=== PATIENT | male | born 1965 | race Caucasian/White ===

== ENCOUNTER 2017-07-08 19:33 | Inpatient (IN) ==
--- NOTE | 2017-07-08 20:25 | Emergency Department Note ---
Disposition Clinical Impression: Cholecystitis, Elevated LFTs, Elevated bilirubin, History of alcohol abuse Ascites Qualifiers: Ascites type: other type Qualified Code(s): R18.8 - Other ascites Disposition: Admitted As Inpatient Time of Disposition: 23:08 General Adult HPI - General Chief complaint: ED General Medical Stated complaint: sent me because of lab work Time Seen by Provider: 07/08/17 20:19 Source: patient Mode of arrival: ambulatory Limitations: no limitations Nursing Notes Reviewed: Yes Vital Signs Reviewed: Yes - History of Present Illness HPI Narrative: Patient is a 52-year-old male with past medical history of anxiety and depression. He also has chronic daily alcohol use. Denies any other IV drug use, any history of hepatitis. He presents today due to abnormal labs, jaundice , scleral icterus, mild to moderate generalized abdominal pain. Patient states that he was seen today at [facility] and had labs drawn and was told that his potassium was 2.6. He was referred to the ER for further care. He was also told that his LFTs were elevated. No labs are available here. The patient states that these were sent to [facility]. Denies any right upper quadrant pain but does admit to some generalized abdominal distention and mild generalized abdominal pain. Denies any diarrhea, nausea, vomiting, fevers, chest pain, shortness of breath. He does admit to some confusion and generalized fatigue, denies any specific numbness, tingling, weakness. The patient does report that he was told 2 to 3 days ago that his potassium was low and that he was supposed to follow up with his primary care physician but has not done so yet. He does not take any potassium supplements daily. Pain Scale: 0 - Related Data Home Medications Medication Instructions Recorded Confirmed clonazePAM [Klonopin] 2 mg PO TID 02/27/16 02/27/16 Previous Rx's Medication Instructions Recorded clonazePAM [Klonopin] 2 mg PO TID #21 tablet 02/27/16 Allergies Allergy/AdvReac Type Severity Reaction Status Date / Time No Known Allergies Allergy Verified 07/08/17 20:08 All systems ED: reviewed and negative except as stated. Constitutional: Denies: fever Eyes: Reports: other (Scleral icterus) Cardiovascular: Denies: chest pain, palpitations Respiratory: Denies: cough, dyspnea, wheezes Gastrointestinal: Reports: abdominal pain. Denies: nausea, vomiting, diarrhea, constipation, hematemesis, melena, hematochezia Genitourinary: Denies: urgency, dysuria, frequency, hematuria Integumentary: Reports: other (Jaundice). Denies: rash Neurological: Denies: headache, weakness, numbness, paresthesias Psychiatric: Reports: anxiety, depression Endocrine: Reports: fatigue Past Medical History - Past Medical History Attestation: Yes The following information was validated with the patient. Source: patient Medical history: Reports: no medical history Psychiatric history: Reports: anxiety, depression - Social History Smoking Status: Current every day smoker Smokeless Tobacco Status: No Alcohol use: Reports: heavy, recent Drug use: Reports: none Physical Exam - General Limitations: no limitations General appearance: other (fatigued, generalized weakness, juandice, scleral icterus) - Head Head exam: atraumatic, normocephalic, normal inspection - Eye Eye exam: Present: PERRL, EOMI, scleral icterus - ENT ENT exam: normal exam, normal oropharynx, mucous membranes moist - Neck Neck exam: Present: normal inspection, full ROM, trachea midline - Chest Chest inspection: Present: normal inspection, symmetric chest wall rise - Respiratory Respiratory exam: Present: normal lung sounds bilaterally - Cardiovascular Cardiovascular exam: Present: normal rhythm, tachycardia, normal heart sounds - Abdominal Exam Abdominal exam: Present: soft, tenderness (mild generalized), distention. Absent: guarding, rebound, rigidity - Extremities Exam Extremities exam: Present: normal inspection, full ROM. Absent: tenderness, pedal edema - Neurological Exam Neurological exam: Present: alert, oriented X3 - Psychiatric Psychiatric exam: Present: normal affect, normal mood - Skin Skin exam: Present: warm, dry, intact, other (Jaundiced from head to shoulders) Course Course Narrative: Patient is tachycardic. EKG shows sinus tachycardia with no acute changes from previous EKG on 07/07/2017. On exam, patient has generalized fatigue, tremors. He is mildly confused. Alert and oriented [address] but not time. He has scleral icterus, jaundice from head down midthoracic region. Mild generalized abdominal distention, mild generalized abdominal tenderness. We will obtain basic labs including LFTs, potassium and basic electrolytes. We will also obtain CT abdomen and pelvis without contrast. Miguel Ángel and gave the patient 40 mEq of oral potassium 21:22 CT shows distended gallbladder, ultrasound was recommended. Ultrasound has been ordered of the right upper quadrant/gallbladder. Is also a large amount of intra-abdominal and pelvic ascites. LFTs, total bili, direct bili was elevated. AST elevated, a LT within normal limits. Concern for alcohol cirrhosis. We will add on ammonia level. Potassium was 3.3 here. He has been given 40meq oral K. NS bolus along with banana bag given. 22:45 PT/INR pending. Gallbladder ultrasound shows cholelithiasis and cholecystitis and possible distal common bile duct obstruction. Patient has seen Dr. Byrd in the past for surgical procedure and aggressive that he stay with [facility] surgical [facility]. I spoke with Dr. Quezada, clothing consultant for surgery, and discussed clinical presentation, lab results, vital signs. He recommended that the patient be admitted to medical services, recommends GI consult once admitted. He then recommended that after workup was complete by GI that surgery can be consulted, therefore no official consult placed yet for surgery. Will admit to hospitalist for further care. 23:07 Dr. Montaño accepts, requested consult to GI to be placed. No GI clothing consultant, consult placed for GI service tomorrow morning. Abdomen/Pelvis CT 07/08/17 20:36 IMPRESSION: 1. Significantly distended gallbladder with gallbladder sludge. No visible dense gallstones or evidence of gallbladder wall thickening. Common bile duct not visualized. Ultrasound evaluation recommended. 2. Large amount of intra-abdominal and pelvic ascites, of uncertain etiology. 3. Severe hepatic steatosis. Assessment of the liver is limited without IV contrast. 4. Diffuse pancreatic atrophy, also limited due to lack of IV contrast. 5. Diffuse body wall edema. D/ / 07/08/2017 21:12:14 Alejandra Vasques / bhupendra Interpreting Provider: Alejandra Vasques Gallbladder Ultrasound 07/08/17 21:21 IMPRESSION: Cholelithiasis, cholecystitis, and possible distal common bile duct obstruction. Moderate ascites. RECOMMENDATIONS: Follow-up HIDA scan D/ / Sergo Arreaga MD / Sergo Arreaga MD Interpreting Provider: Sergo Arreaga MD Abdomen/Pelvis CT 07/08/17 20:36 IMPRESSION: 1. Significantly distended gallbladder with gallbladder sludge. No visible dense gallstones or evidence of gallbladder wall thickening. Common bile duct not visualized. Ultrasound evaluation recommended. 2. Large amount of intra-abdominal and pelvic ascites, of uncertain etiology. 3. Severe hepatic steatosis. Assessment of the liver is limited without IV contrast. 4. Diffuse pancreatic atrophy, also limited due to lack of IV contrast. 5. Diffuse body wall edema. D/ / 07/08/2017 21:12:14 Alejandra Vasques / bhupendra Interpreting Provider: Alejandra Vasques Vital Signs Temperature 98.5 F 07/08/17 20:08 Pulse Rate 120 07/08/17 20:08 Respiratory Rate 16 07/08/17 20:08 Blood Pressure 118/75 07/08/17 20:08 O2 Sat by Pulse Oximetry 95 07/08/17 20:08 Temperature 97.7 F 07/08/17 23:51 Pulse Rate 107 07/08/17 23:51 Respiratory Rate 16 07/08/17 23:51 Blood Pressure 122/77 07/08/17 23:51 O2 Sat by Pulse Oximetry 92 07/08/17 23:51 Oxygen Delivery Oxygen Delivery Nasal Cannula Medical Decision Making - MDM Narrative Medical decision making narrative: CT shows distended gallbladder, ultrasound was recommended. Ultrasound has been ordered of the right upper quadrant/gallbladder. Is also a large amount of intra-abdominal and pelvic ascites. LFTs, total bili, direct bili was elevated. AST elevated, a LT within normal limits. Concern for alcohol cirrhosis. We will add on ammonia level. Potassium was 3.3 here. He has been given 40meq oral K. NS bolus along with banana bag given. 22:45 PT/INR pending. Gallbladder ultrasound shows cholelithiasis and cholecystitis and possible distal common bile duct obstruction. Patient has seen Dr. Byrd in the past for surgical procedure and aggressive that he stay with [facility] surgical group. I spoke with Dr. Quezada, clothing consultant for surgery, and discussed clinical presentation, lab results, vital signs. He recommended that the patient be admitted to medical services, recommends GI consult once admitted. He then recommended that after workup was complete by GI that surgery can be consulted, therefore no official consult placed yet for surgery. Will admit to hospitalist for further care. 23:07 Dr. Montaño accepts, requested consult to GI to be placed. No GI clothing consultant, consult placed for GI service tomorrow morning. - Medical Records Medical records reviewed: Yes I reviewed the patient's medical records. - Lab Data Lab results reviewed: Yes I reviewed the patient's lab results. Result diagrams: 07/08/17 20:38 07/08/17 20:38 Lab Results 07/08/17 07/08/17 07/08/17 Range/Units 20:30 20:38 20:38 WBC 16.4 H (4.3-11.1) K/mcL RBC 2.74 L (4.19-5.50) M/mcL Hgb 10.2 L (12.9-16.9) g/dL Hct 30.3 L (37.5-50.1) % MCV 110.6 H (83.0-100.0) fL MCH 37.2 H (28.0-33.3) pg MCHC 33.7 (31.6-35.5) g/dL RDW 17.0 H (11.5-14.5) % Plt Count 140 (140-400) K/mcL MPV 12.0 (9.4-12.4) fL Seg Neutrophils % 84.0 % Lymphocytes % 10.0 % Monocytes % 6.0 % Neutrophils # 13.8 H (1.6-8.9) K/mcL Lymphocytes # 1.6 (0.6-4.6) K/mcL Monocytes # 1.0 (0.0-1.3) K/mcL Platelet Estimate Normal (Normal) Macrocytosis Present A (Not Present) PT 25.1 H (9.4-12.1) Seconds INR 2.3 APTT 41.0 H (26.0-36.0) Seconds Sodium 130 L (136-145) mEq/L Potassium 3.3 L (3.5-5.1) mEq/L Chloride 90 L (98-107) mEq/L Carbon Dioxide 33 H (23-29) mEq/L BUN 7 (6-20) mg/dL Creatinine 0.67 L (0.70-1.30) mg/dL Est GFR ( Amer) > 60 (> 60) Est GFR (Non-Af Amer) > 60 (> 60) BUN/Creatinine Ratio 10 (6-26) Glucose 120 H (70-105) mg/dL Calculated Osmolality 269 L (280-300) Lactic Acid (0.5-2.2) mmol/L Calcium 8.2 L (8.6-10.3) mg/dL Total Bilirubin 8.6 H (0.3-1.0) mg/dL Direct Bilirubin 4.8 H (0.0-0.2) mg/dL Indirect Bilirubin 3.8 H (0.0-1.2) mg/dL AST 137 H (13-39) Units/L ALT 33 (7-52) Units/L Alkaline Phosphatase 150 H (34-104) Units/L Ammonia (16-53) mcmol/L Troponin I < 0.03 (< 0.04) ng/mL Serum Total Protein 8.3 (6.4-8.9) g/dL Albumin 1.9 L (3.5-5.7) g/dL Globulin 6.4 H (2.4-3.5) g/dL Albumin/Globulin Ratio 0.3 L (1.1-2.2) Lipase 10 L (11-82) Units/L 07/08/17 07/08/17 Range/Units 20:38 21:37 WBC (4.3-11.1) K/mcL RBC (4.19-5.50) M/mcL Hgb (12.9-16.9) g/dL Hct (37.5-50.1) % MCV (83.0-100.0) fL MCH (28.0-33.3) pg MCHC (31.6-35.5) g/dL RDW (11.5-14.5) % Plt Count (140-400) K/mcL MPV (9.4-12.4) fL Seg Neutrophils % % Lymphocytes % % Monocytes % % Neutrophils # (1.6-8.9) K/mcL Lymphocytes # (0.6-4.6) K/mcL Monocytes # (0.0-1.3) K/mcL Platelet Estimate (Normal) Macrocytosis (Not Present) PT (9.4-12.1) Seconds INR APTT (26.0-36.0) Seconds Sodium (136-145) mEq/L Potassium (3.5-5.1) mEq/L Chloride (98-107) mEq/L Carbon Dioxide (23-29) mEq/L BUN (6-20) mg/dL Creatinine (0.70-1.30) mg/dL Est GFR ( Amer) (> 60) Est GFR (Non-Af Amer) (> 60) BUN/Creatinine Ratio (6-26) Glucose (70-105) mg/dL Calculated Osmolality (280-300) Lactic Acid 2.9 H (0.5-2.2) mmol/L Calcium (8.6-10.3) mg/dL Total Bilirubin (0.3-1.0) mg/dL Direct Bilirubin (0.0-0.2) mg/dL Indirect Bilirubin (0.0-1.2) mg/dL AST (13-39) Units/L ALT (7-52) Units/L Alkaline Phosphatase (34-104) Units/L Ammonia 91 H (16-53) mcmol/L Troponin I (< 0.04) ng/mL Serum Total Protein (6.4-8.9) g/dL Albumin (3.5-5.7) g/dL Globulin (2.4-3.5) g/dL Albumin/Globulin Ratio (1.1-2.2) Lipase (11-82) Units/L - Radiology Data Radiology results reviewed: Yes I reviewed the patient's radiology results. Abdomen/Pelvis CT 07/08/17 20:36 IMPRESSION: 1. Significantly distended gallbladder with gallbladder sludge. No visible dense gallstones or evidence of gallbladder wall thickening. Common bile duct not visualized. Ultrasound evaluation recommended. 2. Large amount of intra-abdominal and pelvic ascites, of uncertain etiology. 3. Severe hepatic steatosis. Assessment of the liver is limited without IV contrast. 4. Diffuse pancreatic atrophy, also limited due to lack of IV contrast. 5. Diffuse body wall edema. D/ / 07/08/2017 21:12:14 Alejandra Vasques / bhupendra Interpreting Provider: Alejandra Vasques Gallbladder Ultrasound 07/08/17 21:21 IMPRESSION: Cholelithiasis, cholecystitis, and possible distal common bile duct obstruction. Moderate ascites. RECOMMENDATIONS: Follow-up HIDA scan D/ / Sergo Arreaga MD / Sergo Arreaga MD Interpreting Provider: Sergo Arreaga MD - EKG Data EKG #1 EKG attestation: Yes I reviewed and interpreted this EKG. EKG results narrative: 07/08/2017 20:20. Sinus tachycardia. Rate 119. QRS 101. QTC [address] elevation or depression compared to 07/07/2017. Mild left axis deviation. S.B.A.R. - S.B.A.R. Situation: Demographics, MOA Background: Presenting Complaint, Relevant PMH, Meds, & Allergies Assessment: Vital Signs, Course and respsone to treatment, Exam Concerns, Patient/Family Expectation, Pertinant Lab Results, Outstanding Labs Recommendation: Barrier(s) to disposition, Recommendation based on pending studies, treatments, or consults S.B.A.RAngela Report Given to: Dr. Montaño SAngelaBCristian Repor Time: 23:08 Attestation Statement - Attestation Attestation: I, Dallas William MD, personally evaluated this patient and discussed their management with the resident physician. I reviewed the resident's note and agree with the documented findings, medical decision making, and plan of care. 52-year-old male presents to the emergency department with a complaint of generalized illness which started about a week prior to arrival. He complains of generalized weakness and some generalized abdominal pain and discomfort. Pain especially in the epigastric region. Nausea but no vomiting. He complains of decreased appetite and oral intake. Patient admits to heavy alcohol use. He states he does not drink daily but drinks a lot. He denies prior history of liver problems or gallbladder problems. He was seen somewhere else today and had lab work and referred here because of markedly elevated liver enzymes. On examination patient is a well-developed well-nourished male in no acute distress. He is alert and oriented 3. There is no cyanosis or diaphoresis. He does have jaundice and scleral icterus. He appears dehydrated with dry mucous membranes and lips. Breath sounds are clear and equal bilaterally. Heart tachycardic and regular. Abdomen is soft and mildly distended. Normal bowel sounds. Mild epigastric and upper abdominal tenderness. Labs reviewed. CT of the abdomen and pelvis showed a distended gallbladder and recommended gallbladder ultrasound. It also showed abdominal and pelvic ascites and hepatic steatosis. Gallbladder ultrasound was obtained and showed: Cholelithiasis, cholecystitis, and possible distal common bile duct obstruction. Moderate ascites. Dr. Francis discussed the case with the surgeon clothing consultant, Dr. Quezada, and he recommended admission by the hospitalist. The hospitalist, Dr. Montaño, was consulted and accepted admission of the patient.
[2017-07-08] MEDS ORDERED: Potassium Chloride Elixir 20 MEQ/15 ML UDC PO ONE (20:35)
[2017-07-08 20:51] LABS: Hematocrit 30.3 % (37.5-50.1); Hemoglobin 10.2 g/dL (12.9-16.9); Mean Corpuscular HGB Conc 33.7 g/dL (31.6-35.5); Mean Corpuscular Hemoglobin 37.2 pg (28.0-33.3); Mean Corpuscular Volume 110.6 fL (83.0-100.0); Platelet Count 140 K/mcL (140-400); Red Blood Count 2.74 M/mcL (4.19-5.50)
[2017-07-08 21:08] LABS: Troponin I < 0.03 ng/mL (< 0.04)
[2017-07-08 21:09] LABS: Alanine Aminotransferase 33 Units/L (7-52); Albumin 1.9 g/dL (3.5-5.7); Albumin/Globulin Ratio 0.3 (1.1-2.2); Alkaline Phosphatase 150 Units/L (34-104); Aspartate Amino Transferase 137 Units/L (13-39); BUN/Creatinine Ratio 10 (6-26); Bilirubin,Direct 4.8 mg/dL (0.0-0.2); Bilirubin,Indirect 3.8 mg/dL (0.0-1.2); Bilirubin,Total 8.6 mg/dL (0.3-1.0); Blood Urea Nitrogen 7 mg/dL (6-20); Calcium 8.2 mg/dL (8.6-10.3); Carbon Dioxide 33 mEq/L (23-29); Chloride 90 mEq/L (98-107); Globulin 6.4 g/dL (2.4-3.5); Glucose 120 mg/dL (70-105); Lipase 10 Units/L (11-82); Osmolality,Calculated 269 (280-300); Potassium 3.3 mEq/L (3.5-5.1); Sodium 130 mEq/L (136-145); Total Protein 8.3 g/dL (6.4-8.9); eGFR For African Americans > 60 (> 60); eGFR For Non-African Americans > 60 (> 60)
[2017-07-08 21:58] LABS: Lymphocytes # 1.6 K/mcL (0.6-4.6); Neutrophils # 13.8 K/mcL (1.6-8.9)
[2017-07-08 21:59] LABS: Platelet Estimate Normal (Normal)
[2017-07-08 22:00] LABS: Macrocytosis Present (Not Present)
[2017-07-08] MEDS ORDERED: 0.9 % Sodium Chloride 1,000 ML IVC ONE (22:32)
[2017-07-08 23:08] LABS: INR 2.3; Prothrombin Time 25.1 Seconds (9.4-12.1)
[2017-07-09] MEDS: Thiamine (B-1) 100 MG, Folic Acid 1 MG, MVI, adult with vitamin K 10 ML in 0.9 % Sodi... IVPB SCH ×2 (01:10→18:02)
[2017-07-09] MEDS ORDERED: *HR* OxyCODONE Immed Rel 5 MG TABLET PO PRN (03:00)
[2017-07-09] MEDS ORDERED: D5% in 0.45% NACL 1,000 ML IVC SCH (03:00)
[2017-07-09] MEDS ORDERED: traMADol 50 MG TABLET PO PRN (03:00)
[2017-07-09] MEDS ORDERED: Naloxone 0.4 MG/ML INJ IVP PRN ×2 (03:00→08:22)
[2017-07-09] MEDS ORDERED: Acetaminophen 325 MG TABLET PO PRN (03:00)
[2017-07-09 05:20] LABS: Alanine Aminotransferase 24 Units/L (7-52); Albumin < 1.5 g/dL (3.5-5.7); Alkaline Phosphatase 108 Units/L (34-104); Aspartate Amino Transferase 102 Units/L (13-39); BUN/Creatinine Ratio 14 (6-26); Bilirubin,Total 7.1 mg/dL (0.3-1.0); Blood Urea Nitrogen 7 mg/dL (6-20); Calcium 7.4 mg/dL (8.6-10.3); Carbon Dioxide 33 mEq/L (23-29); Chloride 95 mEq/L (98-107); Chol/HDL Ratio 13.3 (0-4.9); Cholesterol 40 mg/dL (< 200); Glucose 102 mg/dL (70-105); HDL Cholesterol 3 mg/dL (40-59); LDL Cholesterol,Calculated 24 mg/dL (0-99); Magnesium 1.6 mg/dL (1.6-2.6); Osmolality,Calculated 272 (280-300); Sodium 132 mEq/L (136-145); Total Protein 6.3 g/dL (6.4-8.9); Triglycerides 64 mg/dL (< 150); eGFR For African Americans > 60 (> 60); eGFR For Non-African Americans > 60 (> 60)
[2017-07-09 05:26] LABS: Hemoglobin 7.4 g/dL (12.9-16.9)
[2017-07-09 05:28] LABS: Immature Platelets 14.3 % (1.1-6.1); Mean Corpuscular HGB Conc 33.6 g/dL (31.6-35.5); Mean Corpuscular Hemoglobin 37.4 pg (28.0-33.3); Mean Corpuscular Volume 111.1 fL (83.0-100.0); Mean Platelet Volume 11.5 fL (9.4-12.4); Red Blood Count 1.98 M/mcL (4.19-5.50)
[2017-07-09] MEDS ORDERED: *HR* Enoxaparin 40 MG/0.4 ML SYRINGE SQ SCH (06:00)
[2017-07-09] MEDS ORDERED: Potassium Chloride 40 MEQ, Lidocaine 1% 2 ML in D5% in Water 500 ML IVPB ONE (06:26)
[2017-07-09] MEDS ORDERED: Ipratropium/Albuterol Neb 3 ML IH PRN (08:20)
[2017-07-09] MEDS ORDERED: OXYCODONE Oral CONC 10 MG/0.5 ML ORAL.SYG SL PRN (08:22)
[2017-07-09] MEDS ORDERED: diazePAM 10 MG/2 ML SYRINGE IVP PRN ×3 (08:22)
--- NOTE | 2017-07-09 08:33 | Internal Med History&Physical ---
Date of Encounter: 07/09/17 Time of Encounter: 08:29 Assessment and Plan (1) Common bile duct (CBD) obstruction Current visit: Yes Status: Acute Ultrasound showed: 1. Significantly distended gallbladder with gallbladder sludge. No visible dense gallstones or evidence of gallbladder wall thickening. Common bile duct not visualized. Ultrasound evaluation recommended. 2. Large amount of intra-abdominal and pelvic ascites, of uncertain etiology. 3. Severe hepatic steatosis. Assessment of the liver is limited without IV contrast. 4. Diffuse pancreatic atrophy, also limited due to lack of IV contrast. 5. Diffuse body wall edema. GI consulted. IVF due to hypotension thrombocytopenia (2) Anemia Current visit: Yes Status: Acute Acute blood loss anemia, no evidence of active bleeding. Unclear reason/source Protonix IV, consider octreotide Monitor CBC, consider transfusion Qualifiers: Anemia type: other cause Other causes of anemia: acute posthemorrhagic Qualified Code(s): D62 - Acute posthemorrhagic anemia (3) Hypokalemia Current visit: Yes Status: Acute Replete as needed (4) Hepatic encephalopathy Current visit: Yes Status: Acute Lactulose (5) Ascites Current visit: Yes Status: Acute Possible history of liver cirrhosis Consider paracentesis Qualifiers: Ascites type: other type Qualified Code(s): R18.8 - Other ascites (6) Cholecystitis Current visit: Yes Status: Acute Start Rocephin and Flagyl IV (7) Elevated LFTs Current visit: Yes Status: Acute (8) Elevated bilirubin Current visit: Yes Status: Acute due to possible common bile duct obstruction CT scan : 1. Significantly distended gallbladder with gallbladder sludge. No visible dense gallstones or evidence of gallbladder wall thickening. Common bile duct not visualized. Ultrasound evaluation recommended. 2. Large amount of intra-abdominal and pelvic ascites, of uncertain etiology. 3. Severe hepatic steatosis. Assessment of the liver is limited without IV contrast. 4. Diffuse pancreatic atrophy, also limited due to lack of IV contrast. 5. Diffuse body wall edema. (9) Alcohol abuse Current visit: No Status: Acute diazepam per CIWA scale takes klonopin for anxiety at home (10) Jaundice Current visit: No Status: Acute Internal Medicine - H&P: HPI Chief complaint: Weakness Admitted From: Emergency Dept History of present illness: Mr. Hernández is a 52 year old male with a past medical history of alcohol abuse, depression, tobacco abuse that apparently started feeling very weak 3 weeks ago , has become very jaundiced and according to the ER note the patient was complaining of abdominal pain. He is a very poor historian and is confused at the moment 8 upon admission was 120, blood pressure 95/75 at the moment. White blood cell count was 16.4 platelets were 140 but dropped to 92, lactic acid was 2.9 ammonia level was 91 sodium 130 total bilirubin 8.6 direct bilirubin 4.8 and direct bilirubin 3.8. Albumin 1.5 INR 2.3, apparently he was called by an urgent care facility saying that his potassium was low at 2.6, today is 3. Alkaline phosphatase 150. AST was 137, AST 33. CT scan of the abdomen showed a distended gallbladder with sludge could not visualize the common bile duct, shows ascites and hepatic steatosis and pancreatic atrophy. Abdominal ultrasound shows cholelithiasis, cholecystitis and possible. His hemoglobin was 15.7 last year, was 10.2 upon admission and now is 7.4 although he denies any bleeding and has not had bowel movements. Past Med Surg Social Fam HX - Past Medical History Medical history: other (Alcohol abuse, depression, excited, tobacco abuse) Psychiatric history: anxiety, depression - Past Surgical History Surgical History: other (Back surgery and hiatal hernia surgery) - Social History Smoking Status: Current every day smoker Packs per day: 1 Smokeless Tobacco Status: No Alcohol use: heavy, recent Drug use: none - Additional Family History Additional family history: Mother with diabetes Internal Medicine - H&P: Meds clonazePAM [Klonopin] 2 mg PO TID 02/27/16 [History] 3 Allergy/AdvReac Type Severity Reaction Status Date / Time No Known Allergies Allergy Verified 07/09/17 03:13 All Systems PM: A 10-system review of systems was performed and is negative for pertinent findings except as documented above in the HPI. Review of systems: Very weak, denies any fevers, has been having trouble urinating. Other systems out of the 10 reviewed were negative - Constitutional Vitals: Temp Pulse Resp BP Pulse Ox 97.6 F 100 14 103/66 95 07/09/17 06:56 07/09/17 08:22 07/09/17 08:20 07/09/17 08:20 07/09/17 08:20 General appearance: Present: A&O X 2 - Head Head exam: Present: atraumatic, normocephalic - Eye Eye exam: Present: PERRL, scleral icterus, conjuntiva pink. Absent: sclera anicteric Pupils: Present: PERRL - Neck Neck exam general surgery: Present: supple, trachea midline. Absent: lymphadenopathy - Respiratory Respiratory exam: Present: CTAB. Absent: accessory muscle use, rales, rhonchi, wheezes - Cardiovascular Cardiovascular exam: Present: RRR, +S1, +S2. Absent: diastolic murmur, gallop, rubs, systolic murmur - GI/Abdominal GI/Abdominal exam: Present: diminished bowel sounds, distended (ascites), soft, no peritoneal signs. Absent: normal bowel sounds, tenderness - Extremities Exam Extremities exam: Present: pedal edema (+3 pitting edema), warm, radial pulses palpable and symmetrical. Absent: calf tenderness, cyanotic - Neurological Exam Neurological exam: Present: CN II-XII intact, no focal deficits. Absent: oriented X3, pronater drift, facial droop, speech deficit - Skin Skin exam: Present: dry, intact Internal Med - H&P Results - Labs CBC & Chem 7: 07/09/17 04:46 07/09/17 03:18 Labs: Short CBC 07/09/17 Range/Units 04:46 WBC 9.7 (4.3-11.1) K/mcL Hgb 7.4 L D (12.9-16.9) g/dL Hct 22.0 L (37.5-50.1) % Plt Count 92 L (140-400) K/mcL BMP 07/09/17 03:18 Sodium 132 L Potassium 3.0 L Chloride 95 L Carbon Dioxide 33 H BUN 7 Creatinine 0.51 L Glucose 102 Calcium 7.4 L Liver Function 07/09/17 Range/Units 03:18 Total Bilirubin 7.1 H (0.3-1.0) mg/dL AST 102 H (13-39) Units/L ALT 24 (7-52) Units/L Alkaline Phosphatase 108 H (34-104) Units/L Albumin < 1.5 L (3.5-5.7) g/dL
[2017-07-09] MEDS: Potassium Chloride 40 MEQ, Lidocaine 1% 2 ML in D5% in Water 500 ML IVPB SCH ×2 (08:36→12:20)
[2017-07-09] MEDS ORDERED: *HR* LORazepam 2 MG/ML VIAL IVP PRN (08:54)
[2017-07-09] MEDS ORDERED: clonazePAM 1 MG TABLET PO SCH (09:00)
--- NOTE | 2017-07-09 09:03 | Gastroenterology Consult Note ---
<Beatrice Rogers Elaine - Last Filed: 07/09/17 10:51> Date of Encounter: 07/09/17 Time of Encounter: 09:01 - Assessment and plan (1) Alcoholic hepatitis Current Visit: Yes Status: Acute Assessment and plan: MELD Score 26, Meld NA 27. Wilmer's Discriminant Function 73.5 -DF suggests patient needs glucocorticoid therapy, however, Total bilirubin is trending down. We will continue to watch T bili. -No steroids at this point, will monitor t bili tomorrow. If keeps dropping, we will avoid steroids. Qualifiers: Ascites presence: with ascites Qualified Code(s): K70.11 - Alcoholic hepatitis with ascites (2) Malnutrition Current Visit: Yes Status: Acute Assessment and plan: Albumin and total protein low. -Will give 1 gram/kg of albumin for 2 days. -Recommend bringing dietary on board. Qualifiers: Malnutrition type: unspecified type Qualified Code(s): E46 - Unspecified protein-calorie malnutrition (3) Hepatic encephalopathy Current Visit: Yes Status: Acute Assessment and plan: Agree with lactulose. (4) Alcohol abuse Current Visit: No Status: Acute Assessment and plan: Patient with chronic history of alcoholism. -Continue vitamin/electrolyte repletion. -may consider EGD as patient at risk for esophagitis, varices, GI bleeding. (5) Anemia Current Visit: Yes Status: Acute Assessment and plan: This could be dilutional as patient has a poor nutritional status in light of his alcoholism. -We will continue to monitor. -Patient may need EGD at some point. Qualifiers: Anemia type: other cause Other causes of anemia: acute posthemorrhagic Qualified Code(s): D62 - Acute posthemorrhagic anemia (6) Coagulopathy Current Visit: Yes Status: Acute Assessment and plan: INR 2.4 but no medications/oral anticoagulation. -Will give 10mg SQ vitamin K for 3 days. - Time Spent With Patient Total time spent is greater than 50% in coordination of care (as documented) at patient's floor/unit and/or counseling patient: GI History of Present Illness - Data of Consult Patient: new to practice Consult date: 07/09/17 Requesting Physician: Troy Browning - Consult Narrative Reason for consult: Elevated LFTs, elevated bili, cholelithiasis, cholecystitis , alcoholism, li History of present illness: Mr. Hernández is a 52 year old male with unclear past medical history. He states he only takes Klonopin for anxiety. Patient reports chronic daily alcohol use. He states his last drink was the day before yesterday. He denies IV drug use or history of hepatitis. He presented to [facility] on 07/08 with abnormal labs, jaundice, and scleral icterus. Patient presented to [facility] earlier in the day. He had labs drawn. He subsequently received a call that his potassium was 2.6 and he was referred to the emergency department. At that time, patient reported generalized abdominal distention and pain. CT of the abdomen and pelvis demonstrated significantly distended gallbladder with sludge, large amount of intra-abdominal pelvic ascites, severe hepatic steatosis, diffuse pancreatic atrophy, and diffuse body wall edema. Right upper quadrant ultrasound demonstrated cholelithiasis, cholecystitis, and possible distal common bile duct obstruction. WBC 16.4, hemoglobin 10.2 ( macrocytic anemia), platelet count 140, INR 2.3, potassium 3.3, sodium 1:30, creatinine 0.67. Multiple liver protein and enzymatic abnormalities noted including total bili 8.6 (which is trending down to 7.1 this morning), direct bili 4.8, indirect 3.8, AST 137, normal ALT, alkaline phosphatase 150. This morning, at the time of consultation, patient appears out of it. He is alert and oriented 2. He has an apparent tremor and appears jaundiced. He is currently denying any abdominal pain or tenderness, nausea, vomiting, diarrhea, melena, hematochezia, hematemesis, hematuria, or difficulty initiating urination. He does report some slight burning with urination. He denies dizziness, lightheadedness, fatigue, fevers, chills, or night sweats. Past Med Surg Social Fam HX - Past Medical History Attestation: Yes The following information was validated with the patient. Source: patient, old records reviewed Medical history: other (Alcohol abuse, depression, excited, tobacco abuse) Psychiatric history: anxiety, depression, other (alcoholism) - Past Surgical History Surgical History: other (Back surgery and hiatal hernia surgery) - Social History Smoking Status: Current every day smoker Packs per day: 1 Smokeless Tobacco Status: No Alcohol use: heavy, recent Drug use: none All systems PM: reviewed and no additional remarkable complaints except as stated - Constitutional Vitals: Temp Pulse Resp BP Pulse Ox 97.6 F 100 14 103/66 95 07/09/17 06:56 07/09/17 08:22 07/09/17 08:20 07/09/17 08:20 07/09/17 08:20 - Head Additional comments: Scleral icterus and jaundice. - Eye Eye exam: Present: EOMI, scleral icterus - ENT ENT exam: Present: mucous membranes dry - Respiratory Respiratory exam: Present: CTAB. Absent: rales, rhonchi, wheezes - Cardiovascular Cardiovascular exam: Present: distant heart sounds, RRR, +S1, +S2 - GI/Abdominal GI/Abdominal exam: Present: distended, hepatomegaly, no peritoneal signs. Absent: firm, guarding, tenderness Additional comments: Positive fluid wave. - Expanded GI/Abdominal Exam GI/Abdominal exam expanded: Present: ascites. Absent: Tapia's sign, obturator sign, psoas sign, Rovsing's sign, tenderness at McBurney's Point - Extremities Exam Extremities exam: Present: pedal edema. Absent: calf tenderness, tenderness, warm - Neurological Exam Neurological exam: Present: altered - Skin Skin exam: Present: diaphoretic, dry, pallor Results - Labs CBC & Chem 7: 07/09/17 08:59 07/09/17 03:18 Labs: Last Result Calcium 7.4 mg/dL (8.6-10.3) L 07/09/17 03:18 Troponin I < 0.03 ng/mL (< 0.04) 07/08/17 20:38 Triglycerides 64 mg/dL (< 150) 07/09/17 03:18 Entire Visit Hgb 7.4 g/dL (12.9-16.9) L D 07/09/17 04:46 Hct 22.0 % (37.5-50.1) L 07/09/17 04:46 PT 25.1 Seconds (9.4-12.1) H 07/08/17 20:30 Total Bilirubin 7.1 mg/dL (0.3-1.0) H 07/09/17 03:18 AST 102 Units/L (13-39) H 07/09/17 03:18 ALT 24 Units/L (7-52) 07/09/17 03:18 Ammonia 91 mcmol/L (16-53) H 07/08/17 21:37 Lipase 10 Units/L (11-82) L 07/08/17 20:38 - ABG ABG results: PT/INR, D-dimer PT 25.1 Seconds (9.4-12.1) H 07/08/17 20:30 Consult Discharge Plan - Plan Referrals: Lawrence Christianson, PAC [Primary Care Provider] - 07/18/17 10:20 am Raza Palafox MD [Partnered Physician] - (SENT WEB REQUEST ON 07-09-17 @ [phone]) <Raza Palafox - Last Filed: 07/09/17 17:50> Date of Encounter: 07/09/17 Time of Encounter: 17:30 - Time Spent With Patient Total time spent is greater than 50% in coordination of care (as documented) at patient's floor/unit and/or counseling patient: GI History of Present Illness - Data of Consult Requesting Physician: Troy Browning - Consult Narrative History of present illness: Mr. Hernández is a 52 year old male - Constitutional Vitals: Temp Pulse Resp BP Pulse Ox 97.9 F 96 16 102/65 98 07/09/17 15:55 07/09/17 17:31 07/09/17 17:31 07/09/17 17:31 07/09/17 17:31 Results - Labs CBC & Chem 7: 07/09/17 08:59 07/09/17 03:18 Labs: Last Result Calcium 7.4 mg/dL (8.6-10.3) L 07/09/17 03:18 Troponin I < 0.03 ng/mL (< 0.04) 07/08/17 20:38 Triglycerides 64 mg/dL (< 150) 07/09/17 03:18 Entire Visit Hgb 7.6 g/dL (12.9-16.9) L 07/09/17 08:59 Hct 22.9 % (37.5-50.1) L 07/09/17 08:59 PT 25.1 Seconds (9.4-12.1) H 07/08/17 20:30 Total Bilirubin 7.1 mg/dL (0.3-1.0) H 07/09/17 03:18 AST 102 Units/L (13-39) H 07/09/17 03:18 ALT 24 Units/L (7-52) 07/09/17 03:18 Ammonia 91 mcmol/L (16-53) H 07/08/17 21:37 Lipase 10 Units/L (11-82) L 07/08/17 20:38 - ABG ABG results: PT/INR, D-dimer PT 25.1 Seconds (9.4-12.1) H 07/08/17 20:30 - Attending Attestation I have personally performed a face to face evaluation on this patient. I have reviewed and agree with the care plan. History and Exam by me shows: Patient with alcoholic hepatitis with elevated discriminate function. Patient bilirubin is trending down. Does has severe coagulopathy and had elevated white count but today the white count is down. Do not have acute cholecystitis but will keep him on Rocephin just for possible SBP. Follow LFTs. Once INR is less than 2 then we will do a therapeutic tap. If bilirubin is still significantly high tomorrow and no source of infection then he will be started on steroid
[2017-07-09 09:22] LABS: Basophils % 0.8 %; Immature Granulocytes % 0.4 % (0-4); Lymphocytes % 12.4 %; Mean Corpuscular HGB Conc 33.2 g/dL (31.6-35.5)
[2017-07-09 09:24] LABS: Basophils # 0.1 K/mcL (0.0-0.2); Eosinophils # 0.1 K/mcL (0.0-0.6); Eosinophils % 1.3 %; Hematocrit 22.9 % (37.5-50.1); Hemoglobin 7.6 g/dL (12.9-16.9); Immature Platelets 13.6 % (1.1-6.1); Lymphocytes # 1.3 K/mcL (0.6-4.6); Mean Corpuscular Hemoglobin 36.7 pg (28.0-33.3); Mean Corpuscular Volume 110.6 fL (83.0-100.0); Mean Platelet Volume 12.5 fL (9.4-12.4); Monocytes # 1.2 K/mcL (0.0-1.3); Neutrophils # 7.4 K/mcL (1.6-8.9); Nucleated Red Blood Cells 0.2 /100 WBC (0); Platelet Count 102 K/mcL (140-400); Red Blood Count 2.07 M/mcL (4.19-5.50); Segmented Neutrophils % 73.1 %
[2017-07-09] MEDS: D5% in 0.45% NACL w KCl 10 MEQ/1,000 ML MLS IVC SCH ×2 (10:40→20:36)
[2017-07-09] MEDS: cefTRIAXone 1,000 MG in Water for inj. (sterile) 20 ML 10 ML IVP SCH (10:41)
[2017-07-09] MEDS: MetroNIDAZOLE 500 MG/100 ML 500 MG/100 ML BAG IVPB SCH ×2 (10:41→17:17)
[2017-07-09] MEDS: Pantoprazole 40 MG VIAL IVP SCH ×2 (10:41→17:16)
[2017-07-09] MEDS: clonazePAM 1 MG TABLET PO SCH ×3 (10:42→20:36)
[2017-07-09] MEDS: Nicotine 21 MG PATCH.TD24 TD SCH (10:42)
[2017-07-09] MEDS: Lactulose Oral Soln 20 GM/30 ML UDC PO SCH ×2 (10:43→20:37)
[2017-07-09] MEDS ORDERED: *HR* Phytonadione 10 MG/ML AMPUL SQ ONE (10:47)
[2017-07-09 10:51] LABS: Anisocytosis 1+ (Not Present); Macrocytosis Present (Not Present); Platelet Estimate Decreased (Normal)
[2017-07-09] MEDS: Albumin 25% 25gram/100mL 25 GM/100 ML IV.SOLN IVC SCH ×4 (12:18→15:24)
--- NOTE | 2017-07-09 12:24 | Electrocardiograph Report ---
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
[2017-07-10] MEDS: *HR* LORazepam 2 MG/ML VIAL IVP PRN ×2 (00:20→21:00)
[2017-07-10 06:25] LABS: Hemoglobin 6.3 g/dL (12.9-16.9)
[2017-07-10 06:27] LABS: Hematocrit 19.4 % (37.5-50.1); Immature Platelets 13.1 % (1.1-6.1); Mean Corpuscular HGB Conc 32.5 g/dL (31.6-35.5); Mean Corpuscular Hemoglobin 36.6 pg (28.0-33.3); Mean Corpuscular Volume 112.8 fL (83.0-100.0); Mean Platelet Volume 12.1 fL (9.4-12.4); Red Blood Count 1.72 M/mcL (4.19-5.50); Red Cell Distribution Width 16.7 % (11.5-14.5)
[2017-07-10] MEDS: D5% in 0.45% NACL w KCl 10 MEQ/1,000 ML MLS IVC SCH ×2 (06:35→18:14)
[2017-07-10] MEDS: Nicotine 21 MG PATCH.TD24 TD SCH (08:05)
[2017-07-10] MEDS: Lactulose Oral Soln 20 GM/30 ML UDC PO SCH ×3 (08:05→20:33)
[2017-07-10] MEDS: Pantoprazole 40 MG VIAL IVP SCH ×2 (08:06→18:19)
[2017-07-10] MEDS: cefTRIAXone 1,000 MG in Water for inj. (sterile) 20 ML 10 ML IVP SCH (08:06)
[2017-07-10] MEDS: clonazePAM 1 MG TABLET PO SCH ×3 (08:06→20:33)
[2017-07-10] MEDS ORDERED: Potassium Chloride Elixir 20 MEQ/15 ML UDC PO ONE (08:48)
--- NOTE | 2017-07-10 09:01 | Internal Med Progress Note ---
<Michael Bland - Last Filed: 07/10/17 08:59> Date of Encounter: 07/10/17 Time of Encounter: 09:01 - Assessment and plan (1) Anemia Current Visit: Yes Status: Acute Assessment and plan: acute anemia no source of bleeding found hgb 6.3 this morning. replacing with 2 units PRBC continue protonix IV EGD planned for today. order ldh and haptoglobiin to rule out hemolysis Qualifiers: Anemia type: other cause Other causes of anemia: acute posthemorrhagic Qualified Code(s): D62 - Acute posthemorrhagic anemia (2) Alcoholic hepatitis Current Visit: Yes Status: Acute Assessment and plan: T-yajaira trending down. GI will consider steorids if patient T-yajaira does not decrease MELD Score 26, Meld NA 27. Wilmer's Discriminant Function 73.5 continue ceftriaxone for sbp prophylaxis Qualifiers: Ascites presence: with ascites Qualified Code(s): K70.11 - Alcoholic hepatitis with ascites (3) Alcohol abuse Current Visit: Yes Status: Acute Assessment and plan: on ciwa last ciwa 2 continue thiamine (4) Malnutrition Current Visit: Yes Status: Acute Assessment and plan: albumin <1.5 replacing albumin 2nd to alcohol abuse consult nutrition currently NPO for EGD today Patient's nurse says he chocked on lactulose: will get swallow eval after EGG. Qualifiers: Malnutrition type: protein-calorie malnutrition Protein-calorie malnutrition severity: severe Qualified Code(s): E43 - Unspecified severe protein-calorie malnutrition (5) Coagulopathy Current Visit: Yes Status: Acute Assessment and plan: INR 2.3 on admission given vit k new INR pending. (6) Jaundice Current Visit: Yes Status: Acute Assessment and plan: 2nd to alcoholic hepatitis T-yajaira trending down : direct slightly elevated compared to indirect. (7) Ascites Current Visit: Yes Status: Acute Assessment and plan: 2nd to alcoholic cirrhosis will plan to drain today and send for culture, and cell count Qualifiers: Ascites type: due to alcoholic cirrhosis Qualified Code(s): K70.31 - Alcoholic cirrhosis of liver with ascites (8) Hypokalemia Current Visit: Yes Status: Acute Assessment and plan: replacing (9) Hepatic encephalopathy Current Visit: Yes Status: Acute Assessment and plan: somnolent alert to self and place. lactulose - Subjective Interval history: Patient is somnolent. He will awaken to verbal command and oriented to self and time. He denies any vomiting, hematemesis, hematochezia, melena. Patient' s hemoglobin dropped to 6.3 overnight. He is receiving 2 units of packed red blood cells this morning. GI is planning on doing an EGD today. - Constitutional Vitals: Temp Pulse Resp BP Pulse Ox 99.5 F 109 20 104/65 91 07/10/17 07:38 07/10/17 08:29 07/10/17 08:01 07/10/17 07:38 07/10/17 08:01 General appearance: Present: A&O X 2 - Other Additional findings: General: Somnolent HEENT: Head atraumatic, normocephalic, EOMI, PERRLA, absent lymphadenopathy, dry mucous membranes scleral icterus Heart: Sinus tachycardia Lungs: Clear to auscultation bilaterally anteriorly Abdomen: Soft, nontender, distended, positive bowel sounds Skin: warm and dry Extremities: 2+ bilateral pedal edema Neuro: Alert and oriented to self and place. Vascular: Pedal and radial pulses 2 out of 4 Internal Medicine: Result - Labs CBC & Chem 7: 07/10/17 05:50 07/09/17 03:18 Labs: Short CBC 07/09/17 07/10/17 Range/Units 08:59 05:50 WBC 10.1 8.0 (4.3-11.1) K/mcL Hgb 7.6 L 6.3 L (12.9-16.9) g/dL Hct 22.9 L 19.4 L (37.5-50.1) % Plt Count 102 L 87 L (140-400) K/mcL Neutrophils # 7.4 (1.6-8.9) K/mcL - ABG Interpretation ABG results: PT/INR, D-dimer PT 25.1 Seconds (9.4-12.1) H 07/08/17 20:30 Consult Discharge Plan - Plan Referrals: Lawrence Christianson, PAC [Primary Care Provider] - 07/18/17 10:20 am Raza Palafox MD [Partnered Physician] - (SENT WEB REQUEST ON 07-09-17 @ 2330) <Troy Browning H - Last Filed: 07/10/17 13:25> Date of Encounter: 07/10/17 - Assessment and plan (1) Common bile duct (CBD) obstruction Current Visit: Yes Status: Acute (2) Anemia Current Visit: Yes Status: Acute Qualifiers: Anemia type: other cause Other causes of anemia: acute posthemorrhagic Qualified Code(s): D62 - Acute posthemorrhagic anemia (3) Hypokalemia Current Visit: Yes Status: Acute (4) Hepatic encephalopathy Current Visit: Yes Status: Acute (5) Ascites Current Visit: Yes Status: Acute Qualifiers: Ascites type: due to alcoholic cirrhosis Qualified Code(s): K70.31 - Alcoholic cirrhosis of liver with ascites (6) Cholecystitis Current Visit: Yes Status: Acute (7) Elevated LFTs Current Visit: Yes Status: Acute (8) Elevated bilirubin Current Visit: Yes Status: Acute (9) Alcohol abuse Current Visit: Yes Status: Acute (10) Jaundice Current Visit: Yes Status: Acute - Constitutional Vitals: Temp Pulse Resp BP Pulse Ox 99.1 F 111 21 104/65 92 07/10/17 11:28 07/10/17 13:13 07/10/17 11:28 07/10/17 07:38 07/10/17 11:28 Internal Medicine: Result - Labs CBC & Chem 7: 07/10/17 05:50 07/10/17 05:50 Labs: Short CBC 07/10/17 Range/Units 05:50 WBC 8.0 (4.3-11.1) K/mcL Hgb 6.3 L (12.9-16.9) g/dL Hct 19.4 L (37.5-50.1) % Plt Count 87 L (140-400) K/mcL BMP 07/10/17 05:50 Sodium 133 L Potassium 3.1 L Chloride 99 Carbon Dioxide 31 H BUN 5 L Creatinine 0.45 L Glucose 138 H Calcium 7.8 L Liver Function 07/10/17 07/10/17 Range/Units 05:50 09:11 Total Bilirubin 8.2 H 8.7 H (0.3-1.0) mg/dL Direct Bilirubin 4.8 H (0.0-0.2) mg/dL AST 74 H (13-39) Units/L ALT 17 (7-52) Units/L Alkaline Phosphatase 77 (34-104) Units/L Albumin 2.3 L (3.5-5.7) g/dL - ABG Interpretation ABG results: PT/INR, D-dimer PT 25.0 Seconds (9.4-12.1) H 07/10/17 09:11 - Attending Attestation possible acute blood loss anemia transfused blood continue lactulose for hepatic encephalopathy, consider Xifaxan GI recommendations appreciated COmmon bile duct obstruction ? and acute cholecystitis?, cholelithiasis Ultrasound showed: Cholelithiasis, cholecystitis, and possible distal common bile duct obstruction. Moderate ascites. CT showed: 1. Significantly distended gallbladder with gallbladder sludge. No visible dense gallstones or evidence of gallbladder wall thickening. Common bile duct not visualized. Ultrasound evaluation recommended. 2. Large amount of intra-abdominal and pelvic ascites, of uncertain etiology. . I examined this patient and my medical decision-making was reviewed with the Resident Physician. I agree with the documented findings, disposition and treatment plan as described except to the extent set forth below.
[2017-07-10 09:34] LABS: Alanine Aminotransferase 17 Units/L (7-52); Albumin 2.3 g/dL (3.5-5.7); Albumin/Globulin Ratio 0.6 (1.1-2.2); Alkaline Phosphatase 77 Units/L (34-104); Aspartate Amino Transferase 74 Units/L (13-39); BUN/Creatinine Ratio 11 (6-26); Bilirubin,Total 8.2 mg/dL (0.3-1.0); Blood Urea Nitrogen 5 mg/dL (6-20); Calcium 7.8 mg/dL (8.6-10.3); Carbon Dioxide 31 mEq/L (23-29); Chloride 99 mEq/L (98-107); Globulin 3.8 g/dL (2.4-3.5); Glucose 138 mg/dL (70-105); Magnesium 1.5 mg/dL (1.6-2.6); Osmolality,Calculated 275 (280-300); Phosphorous 1.8 mg/dL (2.7-4.5); Potassium 3.1 mEq/L (3.5-5.1); Sodium 133 mEq/L (136-145); Total Protein 6.1 g/dL (6.4-8.9); eGFR For African Americans > 60 (> 60); eGFR For Non-African Americans > 60 (> 60)
[2017-07-10 10:30] LABS: INR 2.3
[2017-07-10] MEDS ORDERED: *HR* Phytonadione 10 MG/ML AMPUL SQ ONE (10:47)
[2017-07-10] MEDS: Albumin 25% 25gram/100mL 25 GM/100 ML IV.SOLN IVC SCH ×4 (11:01→18:15)
[2017-07-10] MEDS: MethylPREDNISolone 40 MG/ML VIAL IVP SCH (11:03)
--- NOTE | 2017-07-10 11:20 | Gastroenterology Progress Note ---
Date of Encounter: 07/10/17 Time of Encounter: 11:16 - Assessment and plan (1) Alcoholic hepatitis Current Visit: Yes Status: Acute Assessment and plan: MELD Score 26, Meld NA 27. Maddrey's Discriminant Function 73.5 -Bilirubin trending upwards, in context of poor discriminant function score, will start solumedrol. -Patient receiving cephalosporin for SBP prophylaxis. -FFP for INR 2.3. Will do EGD tomorrow. Qualifiers: Ascites presence: with ascites Qualified Code(s): K70.11 - Alcoholic hepatitis with ascites (2) Anemia Current Visit: Yes Status: Acute Assessment and plan: Hgb continues to trend downwards, 6.3 today. -Transfusion per primary team. -INR still 2.3, will give 2 units of FFP for EGD tomorrow. -Ok to give diet today, NPO at midnight. Qualifiers: Anemia type: other cause Other causes of anemia: acute posthemorrhagic Qualified Code(s): D62 - Acute posthemorrhagic anemia (3) Malnutrition Current Visit: Yes Status: Acute Assessment and plan: Albumin and total protein low. -Day 2 of 2 of albumin supplementation. -Recommend bringing dietary on board. Qualifiers: Malnutrition type: protein-calorie malnutrition Protein-calorie malnutrition severity: severe Qualified Code(s): E43 - Unspecified severe protein-calorie malnutrition (4) Hepatic encephalopathy Current Visit: Yes Status: Acute Assessment and plan: Agree with lactulose. (5) Coagulopathy Current Visit: Yes Status: Acute Assessment and plan: INR 2.4 but no medications/oral anticoagulation. -Will give 10mg SQ vitamin K for 3 days (day 2/3). -INR stable at 2.3. -Once below 1.5, will perform therapeutic tap of ascities. (6) Ascites Current Visit: Yes Status: Acute Assessment and plan: Once INR below 1.5, will proceed with paracentesis and fluid analysis. -consult to IR placed for potential tap tomorrow. -giving 2 units FFP today. Qualifiers: Ascites type: due to alcoholic cirrhosis Qualified Code(s): K70.31 - Alcoholic cirrhosis of liver with ascites (7) Alcohol abuse Current Visit: Yes Status: Acute Assessment and plan: Patient with chronic history of alcoholism. -Continue vitamin/electrolyte repletion. -EGD tomorrow as patient at risk for esophagitis, varices, GI bleeding. - Time Spent With Patient Total time spent is greater than 50% in coordination of care (as documented) at patient's floor/unit and/or counseling patient: - Subjective Interval history: Patient is difficult to arouse but did give some meaningful information. He is AOX2. He does deny any recent history of melena, hematemesis, or hematochezia. Hbg continues to drop to 6.3. Bilirubin trending up. Family at bedside. - Constitutional Vitals: Temp Pulse Resp BP Pulse Ox 99.5 F 112 20 104/65 94 07/10/17 07:38 07/10/17 10:51 07/10/17 10:51 07/10/17 07:38 07/10/17 10:51 General appearance: Present: A&O X 2 Exam: Jaudiced and pallorous. Somnolent. - Head Additional comments: dry mucosa - Eye Eye exam: Present: EOMI, scleral icterus. Absent: periorbital swelling - ENT ENT exam: Present: mucous membranes dry - Respiratory Respiratory exam: Present: CTAB. Absent: rales, rhonchi, wheezes - Cardiovascular Cardiovascular exam: Present: +S1, +S2, tachycardia - GI/Abdominal GI/Abdominal exam: Present: hepatomegaly, normal bowel sounds, soft. Absent: guarding, rebound, rigid, tenderness, no peritoneal signs Additional comments: fluid wave, ascitis - Expanded GI/Abdominal Exam GI/Abdominal exam expanded: Present: ascites - Extremities Exam Extremities exam: Present: pedal edema. Absent: calf tenderness - Neurological Exam Neurological exam: Present: altered - Skin Skin exam: Present: diaphoretic, pallor Results - Labs CBC & Chem 7: 07/10/17 05:50 07/10/17 05:50 Labs: Last Result Calcium 7.8 mg/dL (8.6-10.3) L 07/10/17 05:50 Troponin I < 0.03 ng/mL (< 0.04) 07/08/17 20:38 Triglycerides 64 mg/dL (< 150) 07/09/17 03:18 Entire Visit Hgb 6.3 g/dL (12.9-16.9) L 07/10/17 05:50 Hct 19.4 % (37.5-50.1) L 07/10/17 05:50 PT 25.1 Seconds (9.4-12.1) H 07/08/17 20:30 Total Bilirubin 8.2 mg/dL (0.3-1.0) H 07/10/17 05:50 AST 74 Units/L (13-39) H 07/10/17 05:50 ALT 17 Units/L (7-52) 07/10/17 05:50 Ammonia 91 mcmol/L (16-53) H 07/08/17 21:37 Lipase 10 Units/L (11-82) L 07/08/17 20:38 - ABG ABG results: PT/INR, D-dimer PT 25.1 Seconds (9.4-12.1) H 07/08/17 20:30 Consult Discharge Plan - Plan Referrals: Lawrence Christianson, PAC [Primary Care Provider] - 07/18/17 10:20 am Raza Palafox MD [Partnered Physician] - (SENT WEB REQUEST ON 07-09-17 @ [phone])
[2017-07-10 11:55] LABS: Bilirubin,Direct 4.8 mg/dL (0.0-0.2); Bilirubin,Indirect 3.9 mg/dL (0.0-1.2); Bilirubin,Total 8.7 mg/dL (0.3-1.0)
[2017-07-10] MEDS ORDERED: 0.9 % Sodium Chloride 250 ML ONE ×2 (13:25→20:54)
[2017-07-10] MEDS ORDERED: D5% in Water 1,000 ML IVC PRN (15:07)
[2017-07-10] MEDS ORDERED: Dextrose Gel 15 GM/37.5 ML TUBE PO PRN ×2 (15:07)
[2017-07-10] MEDS ORDERED: *HR* Dextrose 50 % in Water (Syg) 50 ML SYRINGE IVP PRN (15:07)
--- NOTE | 2017-07-10 15:44 | Procedure Note ---
<Michael Bland - Last Filed: 07/10/17 15:41> Date of procedure: 07/10/17 Pre-op diagnosis: IV access Post-op diagnosis: same Procedure: A time-out was completed verifying correct patient, procedure, site, positioning , and special equipment if applicable. The patient was placed in a dependent position appropriate for central line placement based on the vein to be cannulated. The patients left groin was prepped and draped in sterile fashion. 1% Lidocaine was used to anesthetize the surrounding skin area. A triple lumen 9 -Palau[place] Cordis catheter was introduced into the the common femoral vein using the Seldinger technique and under ultrasound guidance. The catheter was threaded smoothly over the guide wire and appropriate blood return was obtained. Each lumen of the catheter was evacuated of air and flushed with sterile saline. The catheter was then sutured in place to the skin and a sterile dressing applied. Perfusion to the extremity distal to the point of catheter insertion was checked and found to be adequate. Anesthesia: local Surgeon: Michael Bland Was there an assistant health educator present: Yes Electronic Gluing Machine Operator: Antwan Goncalves Estimated blood loss (cc): 5 Specimen: none Pathology: none sent Condition: stable Disposition: floor (2N) <Troy Browning - Last Filed: 07/11/17 17:14> Procedure supervised by resident Renzo Goncalves. I was not able to supervise this procedure due to lack or privileges to place central line. Note is reuired to be signed by attending physician but no supervision took place for this reason
[2017-07-10] MEDS: Thiamine (B-1) 100 MG, Folic Acid 1 MG, MVI, adult with vitamin K 10 ML in 0.9 % Sodi... IVPB SCH (18:19)
[2017-07-10] MEDS: OXYCODONE Oral CONC 10 MG/0.5 ML ORAL.SYG SL PRN (20:56)
[2017-07-11] MEDS ORDERED: 0.9 % Sodium Chloride 250 ML ONE (01:09)
[2017-07-11] MEDS: OXYCODONE Oral CONC 10 MG/0.5 ML ORAL.SYG SL PRN ×2 (04:54→21:59)
[2017-07-11] MEDS: Pantoprazole 40 MG VIAL IVP SCH ×2 (05:02→17:23)
[2017-07-11 05:44] LABS: Immature Granulocytes % 0.7 % (0-4)
[2017-07-11 05:46] LABS: Basophils % 0.1 %; Eosinophils % 0.1 %; Hematocrit 22.1 % (37.5-50.1); Hemoglobin 7.4 g/dL (12.9-16.9); Lymphocytes % 9.5 %; Mean Corpuscular HGB Conc 33.5 g/dL (31.6-35.5); Mean Corpuscular Hemoglobin 35.9 pg (28.0-33.3); Mean Corpuscular Volume 107.3 fL (83.0-100.0); Monocytes # 1.2 K/mcL (0.0-1.3); Monocytes % 11.5 %; Neutrophils # 8.1 K/mcL (1.6-8.9); Red Blood Count 2.06 M/mcL (4.19-5.50); Red Cell Distribution Width 21.8 % (11.5-14.5); Segmented Neutrophils % 78.1 %
[2017-07-11 05:49] LABS: Platelet Count 99 K/mcL (140-400)
[2017-07-11 05:51] LABS: Alanine Aminotransferase 16 Units/L (7-52); Albumin 3.5 g/dL (3.5-5.7); Alkaline Phosphatase 74 Units/L (34-104); Aspartate Amino Transferase 59 Units/L (13-39); BUN/Creatinine Ratio 10 (6-26); Blood Urea Nitrogen 5 mg/dL (6-20); Calcium 8.6 mg/dL (8.6-10.3); Carbon Dioxide 30 mEq/L (23-29); Chloride 98 mEq/L (98-107); Globulin 3.6 g/dL (2.4-3.5); Glucose 153 mg/dL (70-105); Magnesium 1.8 mg/dL (1.6-2.6); Osmolality,Calculated 276 (280-300); Phosphorous 2.1 mg/dL (2.7-4.5); Potassium 3.3 mEq/L (3.5-5.1); Sodium 133 mEq/L (136-145); Total Protein 7.1 g/dL (6.4-8.9); eGFR For African Americans > 60 (> 60); eGFR For Non-African Americans > 60 (> 60)
[2017-07-11] MEDS ORDERED: Lidocaine -MPF 2% 2 ML VIAL ONE (07:45)
[2017-07-11] MEDS ORDERED: *HR* Propofol 200 MG/20 ML VIAL IVP ONE (07:45)
[2017-07-11] MEDS: MethylPREDNISolone 40 MG/ML VIAL IVP SCH (08:20)
[2017-07-11] MEDS: Nicotine 21 MG PATCH.TD24 TD SCH (08:20)
[2017-07-11] MEDS: cefTRIAXone 1,000 MG in Water for inj. (sterile) 20 ML 10 ML IVP SCH (08:20)
[2017-07-11 08:21] LABS: INR 1.9
[2017-07-11] MEDS: Lactulose Oral Soln 20 GM/30 ML UDC PO SCH ×4 (08:21→22:03)
[2017-07-11] MEDS: Potassium Phosphate 44 MEQ in 0.9 % Sodium Chloride 250 ML IVPB PRN (08:22)
[2017-07-11] MEDS: clonazePAM 1 MG TABLET PO SCH ×3 (08:22→22:10)
--- NOTE | 2017-07-11 09:01 | Anesthesia Evaluation PreOp ---
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
--- NOTE | 2017-07-11 09:21 | Gastroenterology Progress Note ---
<Beatrice Rogers Elaine - Last Filed: 07/11/17 09:59> Date of Encounter: 07/11/17 Time of Encounter: 09:20 - Assessment and plan (1) Alcoholic hepatitis Current Visit: Yes Status: Acute Assessment and plan: MELD Score 26, Meld NA 27. Wilmer's Discriminant Function 73.5 -Bilirubin trending upwards. Will give steroids time to take effect. -Patient receiving cephalosporin for SBP prophylaxis. -Patient s/p 2 units of FFP yesterday. INR 1.9. Could not do EGD today as patient's ascites could set him up for potential respiratory distress. -Talked to IR, they will perform paracentesis today. -FU cell count, albumin, total protein of peritoneal fluid. -Will proceed with MRCP as US suggests potential distal CBD obstruction and bilirubin continues to trend upwards. -EGD tentatively planned for Friday. -continue rocephin and steroids. -Will obtain blood cultures. Qualifiers: Ascites presence: with ascites Qualified Code(s): K70.11 - Alcoholic hepatitis with ascites (2) Anemia Current Visit: Yes Status: Acute Assessment and plan: Hgb 7.4 up from 6.3 yesterday (S/p RBC transfusion). -Transfusion per primary team- Recommend hgb around 7-7.5 so as not to increase portal pressures too high. -INR 1.9 today after 2 units of FFP yesterday. -Keep patient NPO for potential EGD Friday morning. -PPI -continue rocephin and steroids Qualifiers: Anemia type: other cause Other causes of anemia: acute posthemorrhagic Qualified Code(s): D62 - Acute posthemorrhagic anemia (3) Malnutrition Current Visit: Yes Status: Acute Assessment and plan: Albumin and total protein low. -patient's albumin supplemented. -Recommend bringing dietary on board. Qualifiers: Malnutrition type: protein-calorie malnutrition Protein-calorie malnutrition severity: severe Qualified Code(s): E43 - Unspecified severe protein-calorie malnutrition (4) Hepatic encephalopathy Current Visit: Yes Status: Acute Assessment and plan: Agree with lactulose. -Continues to be altered. (5) Coagulopathy Current Visit: Yes Status: Acute Assessment and plan: INR 2.4 but no medications/oral anticoagulation. -Will give 10mg SQ vitamin K for 3 days (day 3/3). -INR 1.9 today after 2 units of FFP. (6) Ascites Current Visit: Yes Status: Acute Assessment and plan: Once INR below 1.5, will proceed with paracentesis and fluid analysis. -IR to do paracentesis today. -FU fluid analysis. -continue coverage with rocephin. -obtain blood cultures Qualifiers: Ascites type: due to alcoholic cirrhosis Qualified Code(s): K70.31 - Alcoholic cirrhosis of liver with ascites (7) Alcohol abuse Current Visit: Yes Status: Acute Assessment and plan: Patient with chronic history of alcoholism. -Continue vitamin/electrolyte repletion per primary team. -EGD tentatively planned for friday as patient at risk for esophagitis, varices , GI bleeding. - Time Spent With Patient Total time spent is greater than 50% in coordination of care (as documented) at patient's floor/unit and/or counseling patient: - Subjective Interval history: Patient continues to be difficult to illicit meaningful information from. He is AOx2. Appears encephalopathic. Unable to perform EGD secondary to ascites and risk for respiratory compromise during procedure. He needs drained first. Spoke with IR, they will tap him today. - Constitutional Vitals: Temp Pulse Resp BP Pulse Ox 96.8 F L 106 18 134/96 94 07/11/17 07:00 07/11/17 07:00 07/11/17 07:00 07/11/17 07:00 07/11/17 07:00 General appearance: Present: A&O X 2 Exam: altered, not answering questions appropriately. Able to be aroused. - Head Head exam: Present: atraumatic Additional comments: jaundice and pallor - Eye Eye exam: Present: scleral icterus - Respiratory Respiratory exam: Present: CTAB, tachypnea. Absent: rales, rhonchi, wheezes - Cardiovascular Cardiovascular exam: Present: +S1, +S2, tachycardia - GI/Abdominal GI/Abdominal exam: Present: diminished bowel sounds, distended, hepatomegaly, soft, no peritoneal signs. Absent: firm, guarding Additional comments: ascitis, fluid wave, distended belly - Expanded GI/Abdominal Exam GI/Abdominal exam expanded: Present: ascites - Extremities Exam Extremities exam: Present: pedal edema, warm - Neurological Exam Neurological exam: Present: altered - Skin Skin exam: Present: diaphoretic, pallor Results - Labs CBC & Chem 7: 07/11/17 04:00 07/11/17 04:00 Labs: Last Result Calcium 8.6 mg/dL (8.6-10.3) 07/11/17 04:00 Troponin I < 0.03 ng/mL (< 0.04) 07/08/17 20:38 Triglycerides 64 mg/dL (< 150) 07/09/17 03:18 Entire Visit Hgb 7.4 g/dL (12.9-16.9) L 07/11/17 04:00 Hct 22.1 % (37.5-50.1) L 07/11/17 04:00 PT 21.0 Seconds (9.4-12.1) H 07/11/17 07:59 Total Bilirubin 11.0 mg/dL (0.3-1.0) H 07/11/17 04:00 AST 59 Units/L (13-39) H 07/11/17 04:00 ALT 16 Units/L (7-52) 07/11/17 04:00 Ammonia 91 mcmol/L (16-53) H 07/08/17 21:37 Lipase 10 Units/L (11-82) L 07/08/17 20:38 - ABG ABG results: PT/INR, D-dimer PT 21.0 Seconds (9.4-12.1) H 07/11/17 07:59 Consult Discharge Plan - Plan Referrals: Lawrence Christianson, PAC [Primary Care Provider] - 07/18/17 10:20 am Raza Palafox MD [Partnered Physician] - (SENT WEB REQUEST ON 07-09-17 @ [phone]) <Raza Palafox - Last Filed: 07/11/17 13:14> Date of Encounter: 07/11/17 Time of Encounter: 09:00 - Time Spent With Patient Total time spent is greater than 50% in coordination of care (as documented) at patient's floor/unit and/or counseling patient: - Constitutional Vitals: Temp Pulse Resp BP Pulse Ox 97.4 F L 101 18 124/89 97 07/11/17 11:27 07/11/17 11:27 07/11/17 11:27 07/11/17 11:27 07/11/17 11:27 Results - Labs CBC & Chem 7: 07/11/17 04:00 07/11/17 04:00 Labs: Last Result Calcium 8.6 mg/dL (8.6-10.3) 07/11/17 04:00 Troponin I < 0.03 ng/mL (< 0.04) 07/08/17 20:38 Triglycerides 64 mg/dL (< 150) 07/09/17 03:18 Entire Visit Hgb 7.4 g/dL (12.9-16.9) L 07/11/17 04:00 Hct 22.1 % (37.5-50.1) L 07/11/17 04:00 PT 21.0 Seconds (9.4-12.1) H 07/11/17 07:59 Total Bilirubin 11.0 mg/dL (0.3-1.0) H 07/11/17 04:00 AST 59 Units/L (13-39) H 07/11/17 04:00 ALT 16 Units/L (7-52) 07/11/17 04:00 Ammonia 78 mcmol/L (16-53) H 07/11/17 10:47 Lipase 10 Units/L (11-82) L 07/08/17 20:38 - ABG ABG results: PT/INR, D-dimer PT 21.0 Seconds (9.4-12.1) H 07/11/17 07:59 - Attending Attestation I examined this patient and my medical decision-making was reviewed with the Resident Physician. I agree with the documented findings, disposition and treatment plan as described except to the extent set forth below. Recommend NG placement for lactulose also can start rifaximin. Also need enteric nutrition. Continue IV steroid and inc dose of Solu-Medrol 60 mg a day
[2017-07-11] MEDS: *HR* LORazepam 2 MG/ML VIAL IVP PRN ×3 (09:35→22:00)
--- NOTE | 2017-07-11 09:40 | Internal Med Progress Note ---
<Michael Bland - Last Filed: 07/11/17 09:36> Date of Encounter: 07/11/17 Time of Encounter: 09:36 - Assessment and plan (1) Anemia Current Visit: Yes Status: Acute Assessment and plan: acute anemia no source of bleeding found Given 2 units PRBC 7.4 this morning continue protonix IV EGD planned for today however unable to contact family for consent. LDH within normal limits. Qualifiers: Anemia type: other cause Other causes of anemia: acute posthemorrhagic Qualified Code(s): D62 - Acute posthemorrhagic anemia (2) Alcoholic hepatitis Current Visit: Yes Status: Acute Assessment and plan: T-yajaira trending up. continue solumedrol MELD Score 26, Meld NA 27. Wilmer's Discriminant Function 73.5 continue ceftriaxone day 3 for sbp prophylaxis Qualifiers: Ascites presence: with ascites Qualified Code(s): K70.11 - Alcoholic hepatitis with ascites (3) Alcohol abuse Current Visit: Yes Status: Acute Assessment and plan: on ciwa continue thiamine (4) Malnutrition Current Visit: Yes Status: Acute Assessment and plan: NPO for EGD speech therapy consult pending for swallow eval nutrition on board received albumin. Qualifiers: Malnutrition type: protein-calorie malnutrition Protein-calorie malnutrition severity: severe Qualified Code(s): E43 - Unspecified severe protein-calorie malnutrition (5) Coagulopathy Current Visit: Yes Status: Acute Assessment and plan: 2nd to alcoholic cirrhosis given FFP INR now 1.9 (6) Jaundice Current Visit: Yes Status: Acute Assessment and plan: 2nd to alcoholic hepatitis wrosening T-yajaira trending up direct and indirect yajaira mostly equal Appreciate GI recommendations US gallbladder shows possible obstruction (7) Ascites Current Visit: Yes Status: Acute Assessment and plan: 2nd to alcoholic cirrhosis will plan to drain with improved INR Qualifiers: Ascites type: due to alcoholic cirrhosis Qualified Code(s): K70.31 - Alcoholic cirrhosis of liver with ascites (8) Hypokalemia Current Visit: Yes Status: Acute Assessment and plan: replacing on electrolyte protocol (9) Hepatic encephalopathy Current Visit: Yes Status: Acute Assessment and plan: somnolent alert to self and place. lactulose - Subjective Interval history: Patient was scheduled for EGD this morning but was not completed because of consent. Tried to contact family myself was unscucessful. Patient is more jaundice today. He is awake and alert but speech is difficult to understand. NO acute events overnight. - Constitutional Vitals: Temp Pulse Resp BP Pulse Ox 96.8 F L 106 18 134/96 94 07/11/17 07:00 07/11/17 07:00 07/11/17 07:00 07/11/17 07:00 07/11/17 07:00 General appearance: Present: A&O X 2 - Other Additional findings: General: Somnolent HEENT: Head atraumatic, normocephalic, EOMI, PERRLA, absent lymphadenopathy, dry mucous membranes scleral icterus Heart: Sinus tachycardia Lungs: Clear to auscultation bilaterally anteriorly Abdomen: Soft, nontender, distended, positive bowel sounds Skin: warm and dry, jaundice worsening Extremities: 2+ bilateral pedal edema Neuro: Alert and oriented to self and place. Vascular: Pedal and radial pulses 2 out of 4 Internal Medicine: Result - Labs CBC & Chem 7: 07/11/17 04:00 07/11/17 04:00 Labs: Short CBC 07/11/17 Range/Units 04:00 WBC 10.4 (4.3-11.1) K/mcL Hgb 7.4 L (12.9-16.9) g/dL Hct 22.1 L (37.5-50.1) % Plt Count 99 L (140-400) K/mcL Neutrophils # 8.1 (1.6-8.9) K/mcL BMP 07/11/17 04:00 Sodium 133 L Potassium 3.3 L Chloride 98 Carbon Dioxide 30 H BUN 5 L Creatinine 0.52 L Glucose 153 H Calcium 8.6 Liver Function 07/10/17 07/11/17 Range/Units 09:11 04:00 Total Bilirubin 8.7 H 11.0 H (0.3-1.0) mg/dL Direct Bilirubin 4.8 H 6.0 H (0.0-0.2) mg/dL AST 59 H (13-39) Units/L ALT 16 (7-52) Units/L Alkaline Phosphatase 74 (34-104) Units/L Albumin 3.5 (3.5-5.7) g/dL - ABG Interpretation ABG results: PT/INR, D-dimer PT 21.0 Seconds (9.4-12.1) H 07/11/17 07:59 Consult Discharge Plan - Plan Referrals: Lawrence Christianson PAC [Primary Care Provider] - 07/18/17 10:20 am Raza Palafox MD [Partnered Physician] - (SENT WEB REQUEST ON 07-09-17 @ [phone]) <Troy Browning H - Last Filed: 07/11/17 10:55> Date of Encounter: 07/11/17 - Assessment and plan (1) Common bile duct (CBD) obstruction Current Visit: Yes Status: Acute (2) Anemia Current Visit: Yes Status: Acute Qualifiers: Anemia type: other cause Other causes of anemia: acute posthemorrhagic Qualified Code(s): D62 - Acute posthemorrhagic anemia (3) Hypokalemia Current Visit: Yes Status: Acute (4) Hepatic encephalopathy Current Visit: Yes Status: Acute (5) Ascites Current Visit: Yes Status: Acute Qualifiers: Ascites type: due to alcoholic cirrhosis Qualified Code(s): K70.31 - Alcoholic cirrhosis of liver with ascites (6) Cholecystitis Current Visit: Yes Status: Acute (7) Elevated LFTs Current Visit: Yes Status: Acute (8) Elevated bilirubin Current Visit: Yes Status: Acute (9) Alcohol abuse Current Visit: Yes Status: Acute (10) Jaundice Current Visit: Yes Status: Acute - Constitutional Vitals: Temp Pulse Resp BP Pulse Ox 96.8 F L 106 18 134/96 94 07/11/17 07:00 07/11/17 07:00 07/11/17 07:00 07/11/17 07:00 07/11/17 07:00 Internal Medicine: Result - Labs CBC & Chem 7: 07/11/17 04:00 07/11/17 04:00 Labs: Short CBC 07/11/17 Range/Units 04:00 WBC 10.4 (4.3-11.1) K/mcL Hgb 7.4 L (12.9-16.9) g/dL Hct 22.1 L (37.5-50.1) % Plt Count 99 L (140-400) K/mcL Neutrophils # 8.1 (1.6-8.9) K/mcL BMP 07/11/17 04:00 Sodium 133 L Potassium 3.3 L Chloride 98 Carbon Dioxide 30 H BUN 5 L Creatinine 0.52 L Glucose 153 H Calcium 8.6 Liver Function 07/10/17 07/11/17 Range/Units 09:11 04:00 Total Bilirubin 8.7 H 11.0 H (0.3-1.0) mg/dL Direct Bilirubin 4.8 H 6.0 H (0.0-0.2) mg/dL AST 59 H (13-39) Units/L ALT 16 (7-52) Units/L Alkaline Phosphatase 74 (34-104) Units/L Albumin 3.5 (3.5-5.7) g/dL - ABG Interpretation ABG results: PT/INR, D-dimer PT 21.0 Seconds (9.4-12.1) H 07/11/17 07:59 - Attending Attestation possible acute blood loss anemia transfused blood continue lactulose for acute hepatic encephalopathy, consider Xifaxan ( very encephalopathic today) GI recommendations appreciated, EGD?, may increase dose of lactulose if worse Common bile duct obstruction ? and acute cholecystitis?, cholelithiasis continue Rocephin may consider paracentesis Ultrasound showed: Cholelithiasis, cholecystitis, and possible distal common bile duct obstruction. Moderate ascites. CT showed: 1. Significantly distended gallbladder with gallbladder sludge. No visible dense gallstones or evidence of gallbladder wall thickening. Common bile duct not visualized. Ultrasound evaluation recommended. 2. Large amount of intra-abdominal and pelvic ascites, of uncertain etiology. . I examined this patient and my medical decision-making was reviewed with the Resident Physician. I agree with the documented findings, disposition and treatment plan as described except to the extent set forth below.
[2017-07-11] MEDS ORDERED: *HR* Phytonadione 10 MG/ML AMPUL SQ ONE (10:47)
[2017-07-11] MEDS: D5% in 0.45% NACL w KCl 10 MEQ/1,000 ML MLS IVC SCH (12:49)
--- NOTE | 2017-07-11 14:42 | Event Note ---
<Michael Bland - Last Filed: 07/11/17 14:40> Date of Encounter: 07/11/17 Time of Encounter: 14:40 Patient was approached by IR, GI and medicine team multiple time for paracentesis and refused. Patient has large amount of ascities causing him sob and may results in respiratory failure and intubation, . He is requiring 6L O2 currently. He has been explained this but continues to refuse. <Troy Browning - Last Filed: 07/11/17 17:14> Date of Encounter: 07/11/17
[2017-07-11] MEDS: Thiamine (B-1) 100 MG, Folic Acid 1 MG, MVI, adult with vitamin K 10 ML in 0.9 % Sodi... IVPB SCH (17:23)
[2017-07-11 22:51] LABS: Phosphorous 1.8 mg/dL (2.7-4.5)
[2017-07-12] MEDS: OXYCODONE Oral CONC 10 MG/0.5 ML ORAL.SYG SL PRN (03:55)
[2017-07-12] MEDS: *HR* LORazepam 2 MG/ML VIAL IVP PRN (04:48)
[2017-07-12] MEDS: Pantoprazole 40 MG VIAL IVP SCH ×2 (04:49→16:54)
[2017-07-12] MEDS: D5% in 0.45% NACL w KCl 10 MEQ/1,000 ML MLS IVC SCH (04:49)
[2017-07-12 05:33] LABS: Basophils % 0.1 %; Eosinophils % 0.1 %; Hemoglobin 7.7 g/dL (12.9-16.9); Lymphocytes % 9.4 %
[2017-07-12 05:35] LABS: Hematocrit 23.3 % (37.5-50.1); Immature Granulocytes % 0.7 % (0-4); Mean Corpuscular Hemoglobin 35.6 pg (28.0-33.3); Mean Corpuscular Volume 107.9 fL (83.0-100.0); Mean Platelet Volume 11.8 fL (9.4-12.4); Monocytes % 9.5 %; Neutrophils # 8.4 K/mcL (1.6-8.9); Red Blood Count 2.16 M/mcL (4.19-5.50); Red Cell Distribution Width 20.1 % (11.5-14.5); Segmented Neutrophils % 80.2 %
[2017-07-12 05:41] LABS: INR 1.9; Prothrombin Time 21.1 Seconds (9.4-12.1)
[2017-07-12 05:50] LABS: Platelet Count 98 K/mcL (140-400)
[2017-07-12 05:50] LABS: Alanine Aminotransferase 18 Units/L (7-52); Albumin 2.9 g/dL (3.5-5.7); Albumin/Globulin Ratio 0.8 (1.1-2.2); Alkaline Phosphatase 74 Units/L (34-104); Aspartate Amino Transferase 66 Units/L (13-39); BUN/Creatinine Ratio 23 (6-26); Bilirubin,Direct 3.7 mg/dL (0.0-0.2); Bilirubin,Indirect 3.3 mg/dL (0.0-1.2); Blood Urea Nitrogen 8 mg/dL (6-20); Calcium 8.5 mg/dL (8.6-10.3); Carbon Dioxide 28 mEq/L (23-29); Chloride 99 mEq/L (98-107); Globulin 3.8 g/dL (2.4-3.5); Glucose 129 mg/dL (70-105); Osmolality,Calculated 274 (280-300); Potassium 3.7 mEq/L (3.5-5.1); Sodium 132 mEq/L (136-145); Total Protein 6.7 g/dL (6.4-8.9); eGFR For African Americans > 60 (> 60); eGFR For Non-African Americans > 60 (> 60)
[2017-07-12 06:06] LABS: Anisocytosis 2+ (Not Present); Hypochromasia Present (Not Present); Macrocytosis Present (Not Present); Microcytosis Present (Not Present); Platelet Estimate Decreased (Normal)
--- NOTE | 2017-07-12 07:59 | Internal Med Progress Note ---
<Michael Bland - Last Filed: 07/12/17 07:56> Date of Encounter: 07/12/17 Time of Encounter: 07:56 - Assessment and plan (1) Alcoholic hepatitis Current Visit: Yes Status: Acute Assessment and plan: T-yajaira trending down. continue IV solumderol MELD Score 26, Meld NA 27. Wilmer's Discriminant Function 73.5 continue ceftriaxone for sbp prophylaxis: patient refused paracentesis Qualifiers: Ascites presence: with ascites Qualified Code(s): K70.11 - Alcoholic hepatitis with ascites (2) Anemia Current Visit: Yes Status: Acute Assessment and plan: acute anemia no source of bleeding found replaced with 2 units PRBC hgb stable BP stable continue protonix IV EGD planned for friday possibly to rule out upper GI bleed Qualifiers: Anemia type: other cause Other causes of anemia: acute posthemorrhagic Qualified Code(s): D62 - Acute posthemorrhagic anemia (3) Acute respiratory failure Current Visit: Yes Status: Acute Assessment and plan: Patient currently requiring 4 L oxygen. Start scheduled DuoNeb treatments. Obtain chest x-ray. On Solu-Medrol for alcohol hepatitis. Patient is fluid overloaded will decrease rate of fluids. Patient will benefit from paracentesis Qualifiers: Respiratory failure complication: hypoxia Qualified Code(s): J96.01 - Acute respiratory failure with hypoxia (4) Alcohol abuse Current Visit: Yes Status: Acute Assessment and plan: on ciwa continue thiamine continue electrolyte protocol (5) Malnutrition Current Visit: Yes Status: Acute Assessment and plan: speech cleared patient for pureed diet continue pureed diet. received albumin Qualifiers: Malnutrition type: protein-calorie malnutrition Protein-calorie malnutrition severity: severe Qualified Code(s): E43 - Unspecified severe protein-calorie malnutrition (6) Coagulopathy Current Visit: Yes Status: Acute Assessment and plan: stable give 2 FFPs since admission continue to monitor (7) Jaundice Current Visit: Yes Status: Acute Assessment and plan: 2nd to alcoholic hepatitis T-yajaira trending down (8) Ascites Current Visit: Yes Status: Acute Assessment and plan: 2nd to alcoholic cirrhosis patient refused paracentesis reports he would like it on friday Qualifiers: Ascites type: due to alcoholic cirrhosis Qualified Code(s): K70.31 - Alcoholic cirrhosis of liver with ascites (9) Hypokalemia Current Visit: Yes Status: Acute Assessment and plan: resolved. (10) Hepatic encephalopathy Current Visit: Yes Status: Acute Assessment and plan: somnolent, no change alert to self and place. continue lactulose - Subjective Interval history: Patient is somnolent but arousable this morning. Alert to self and place only. Nursing reports overnight he became confused and was pulling at lines. He was given Ativan as per [facility] protocol. - Constitutional Vitals: Temp Pulse Resp BP Pulse Ox 97.4 F L 96 16 116/89 100 07/12/17 07:01 07/12/17 07:01 07/12/17 07:01 07/12/17 07:01 07/12/17 07:01 General appearance: Present: A&O X 2 - Other Additional findings: General: Somnolent, calm HEENT: Improved scleral icterus, dry mucous membranes Heart: Sinus tachycardia Lungs: Rhonchorous bilaterally Abdomen: Soft nontender, distended,ascites, distant bowel sounds Skin: warm and dry, jaundiced improved Extremities: 2+ edema Neuro: Alert to self and place, somnolent, does not answer many questions. Vascular: Pedal and radial pulses 2 out of 4 Internal Medicine: Result - Labs CBC & Chem 7: 07/12/17 04:55 07/12/17 04:00 Labs: Short CBC 07/12/17 Range/Units 04:55 WBC 10.5 (4.3-11.1) K/mcL Hgb 7.7 L (12.9-16.9) g/dL Hct 23.3 L (37.5-50.1) % Plt Count 98 L (140-400) K/mcL Neutrophils # 8.4 (1.6-8.9) K/mcL BMP 07/11/17 07/12/17 22:20 04:00 Sodium 132 L Potassium 4.0 3.7 Chloride 99 Carbon Dioxide 28 BUN 8 Creatinine 0.35 L Glucose 129 H Calcium 8.5 L Liver Function 07/12/17 Range/Units 04:00 Total Bilirubin 7.0 H (0.3-1.0) mg/dL Direct Bilirubin 3.7 H (0.0-0.2) mg/dL AST 66 H (13-39) Units/L ALT 18 (7-52) Units/L Alkaline Phosphatase 74 (34-104) Units/L Albumin 2.9 L (3.5-5.7) g/dL - ABG Interpretation ABG results: PT/INR, D-dimer PT 21.1 Seconds (9.4-12.1) H 07/12/17 04:55 Consult Discharge Plan - Plan Referrals: Lawrence Christianson, PAC [Primary Care Provider] - 07/18/17 10:20 am Raza Palafox MD [Partnered Physician] - (SENT WEB REQUEST ON 07-09-17 @ [phone]) <Marni Murillo - Last Filed: 07/12/17 13:24> Date of Encounter: 07/12/17 Time of Encounter: 09:40 - Assessment and plan (1) Acute respiratory failure Current Visit: Yes Status: Acute Qualifiers: Respiratory failure complication: hypoxia Qualified Code(s): J96.01 - Acute respiratory failure with hypoxia (2) Alcoholic hepatitis Current Visit: Yes Status: Acute Qualifiers: Ascites presence: with ascites Qualified Code(s): K70.11 - Alcoholic hepatitis with ascites (3) Anemia Current Visit: Yes Status: Acute Qualifiers: Anemia type: other cause Other causes of anemia: acute posthemorrhagic Qualified Code(s): D62 - Acute posthemorrhagic anemia (4) Ascites Current Visit: Yes Status: Acute Qualifiers: Ascites type: due to alcoholic cirrhosis Qualified Code(s): K70.31 - Alcoholic cirrhosis of liver with ascites (5) Coagulopathy Current Visit: Yes Status: Acute (6) Common bile duct (CBD) obstruction Current Visit: Yes Status: Acute (7) Hepatic encephalopathy Current Visit: Yes Status: Acute (8) Hypokalemia Current Visit: Yes Status: Acute (9) Malnutrition Current Visit: Yes Status: Acute Qualifiers: Malnutrition type: protein-calorie malnutrition Protein-calorie malnutrition severity: severe Qualified Code(s): E43 - Unspecified severe protein-calorie malnutrition - Constitutional Vitals: Temp Pulse Resp BP Pulse Ox 98.4 F 103 20 119/84 96 07/12/17 11:14 07/12/17 11:14 07/12/17 11:14 07/12/17 11:14 07/12/17 11:14 Internal Medicine: Result - Labs CBC & Chem 7: 07/12/17 04:55 07/12/17 04:00 Labs: Short CBC 07/12/17 Range/Units 04:55 WBC 10.5 (4.3-11.1) K/mcL Hgb 7.7 L (12.9-16.9) g/dL Hct 23.3 L (37.5-50.1) % Plt Count 98 L (140-400) K/mcL Neutrophils # 8.4 (1.6-8.9) K/mcL BMP 07/11/17 07/12/17 22:20 04:00 Sodium 132 L Potassium 4.0 3.7 Chloride 99 Carbon Dioxide 28 BUN 8 Creatinine 0.35 L Glucose 129 H Calcium 8.5 L Liver Function 07/12/17 Range/Units 04:00 Total Bilirubin 7.0 H (0.3-1.0) mg/dL Direct Bilirubin 3.7 H (0.0-0.2) mg/dL AST 66 H (13-39) Units/L ALT 18 (7-52) Units/L Alkaline Phosphatase 74 (34-104) Units/L Albumin 2.9 L (3.5-5.7) g/dL Urine 07/12/17 Range/Units 10:35 Urine Color [place] A (Yellow) Urine Clarity [place] A (Clear) Urine pH 6.0 (5.0-8.0) pH Units Ur Specific [place] 1.025 (1.010-1.025) Urine Protein 30 H (Neg-Trace) mg/dL Urine Glucose (UA) Normal (Normal) mg/dL - ABG Interpretation ABG results: PT/INR, D-dimer PT 21.1 Seconds (9.4-12.1) H 07/12/17 04:55 - Attending Attestation I examined this patient and my medical decision-making was reviewed with the Resident Physician, Michael Bland. I agree with the documented findings, disposition and treatment plan as described with any changes as documented below. Bilirubin trending down. Patient remains very somnolent. Continue lactulose. Monitor vital signs. Has refused paracentesis at this time. Treating empirically for possible SBP. We will add spironolactone. If patient does not have any bowel movements with oral lactulose, he will need lactulose enema. Will add Xifaxan. Possible EGD for evaluation of anemia on Friday. Minimize benzodiazepine use. Continue steroids. Transition to oral prednisolone from tomorrow. Overall poor prognosis. Remains at high risk for complications.
[2017-07-12] MEDS ORDERED: D5% in 0.45% NACL w KCl 10 MEQ/1,000 ML MLS IVC SCH (08:11)
[2017-07-12] MEDS: methylPREDNISolone 125 MG/2 ML VIAL IVP SCH (10:01)
[2017-07-12] MEDS: cefTRIAXone 1,000 MG in Water for inj. (sterile) 20 ML 10 ML IVP SCH (10:02)
[2017-07-12] MEDS: clonazePAM 1 MG TABLET PO SCH ×3 (10:03→21:57)
[2017-07-12] MEDS: Nicotine 21 MG PATCH.TD24 TD SCH (10:03)
[2017-07-12] MEDS: Lactulose Oral Soln 20 GM/30 ML UDC PO SCH ×4 (10:03→21:57)
[2017-07-12] MEDS: Ipratropium/Albuterol Neb 3 ML IH SCH ×3 (10:30→22:42)
[2017-07-12] MEDS ORDERED: Lactulose 200 GM, Sodium Chloride IRRigation 700 ML RC ONE (10:40)
[2017-07-12 10:57] LABS: Bilirubin,Urine Large (Negative); Blood,Urine Small (Negative); Clarity,Urine Turbid (Clear); Color,Urine Orange (Yellow); Glucose,Urine (UA) Normal (Normal); Ketones,Urine Trace mg/dL (Negative); Leukocyte Esterase,Urine Small (Negative); Nitrite,Urine Positive (Negative); Protein,Urine 30 mg/dL (Neg-Trace); Specific Gravity,Urine 1.025 (1.010-1.025)
[2017-07-12 11:16] LABS: Mucus,Urine Many (Few); Squamous Epithelial Cell,Urine Few per lpf (None-Few)
[2017-07-12 11:17] LABS: Hyaline Casts,Urine Few per lpf (None-Few)
[2017-07-12 11:18] LABS: Bacteria,Urine Many per hpf (None-Few)
[2017-07-12] MEDS: Potassium Phosphate 44 MEQ in 0.9 % Sodium Chloride 250 ML IVPB PRN (12:57)
[2017-07-12] MEDS: Potassium Chloride 40 MEQ/200 ML BAG IVPB PRN ×2 (12:58→14:12)
[2017-07-12] MEDS: Thiamine (B-1) 100 MG, Folic Acid 1 MG, MVI, adult with vitamin K 10 ML in 0.9 % Sodi... IVPB SCH (16:55)
[2017-07-12] MEDS: Furosemide 40 MG/4 ML VIAL IVP SCH (16:55)
[2017-07-12 20:12] LABS: Magnesium 1.8 mg/dL (1.6-2.6)
[2017-07-12] MEDS: MetroNIDAZOLE 500 MG/100 ML 500 MG/100 ML BAG IVPB SCH (23:42)
[2017-07-13] MEDS: Potassium Phosphate 44 MEQ in 0.9 % Sodium Chloride 250 ML IVPB PRN (02:10)
[2017-07-13] MEDS: Ipratropium/Albuterol Neb 3 ML IH SCH ×4 (04:02→22:20)
[2017-07-13] MEDS: Pantoprazole 40 MG VIAL IVP SCH ×2 (05:35→18:04)
[2017-07-13 05:55] LABS: Basophils % 0.1 %; Immature Granulocytes % 0.8 % (0-4)
[2017-07-13 05:57] LABS: Hematocrit 24.3 % (37.5-50.1); Hemoglobin 7.8 g/dL (12.9-16.9); Immature Platelets 10.2 % (1.1-6.1); Lymphocytes # 0.9 K/mcL (0.6-4.6); Lymphocytes % 7.9 %; Mean Corpuscular HGB Conc 32.1 g/dL (31.6-35.5); Mean Corpuscular Hemoglobin 34.8 pg (28.0-33.3); Mean Corpuscular Volume 108.5 fL (83.0-100.0); Mean Platelet Volume 11.7 fL (9.4-12.4); Monocytes # 1.1 K/mcL (0.0-1.3); Monocytes % 9.5 %; Nucleated Red Blood Cells 0.2 /100 WBC (0); Platelet Count 102 K/mcL (140-400); Red Blood Count 2.24 M/mcL (4.19-5.50); Segmented Neutrophils % 81.7 %
[2017-07-13 05:59] LABS: Neutrophils # 9.2 K/mcL (1.6-8.9)
[2017-07-13 06:01] LABS: INR 1.8; Prothrombin Time 19.9 Seconds (9.4-12.1)
[2017-07-13 06:19] LABS: Alanine Aminotransferase 20 Units/L (7-52); Albumin 2.6 g/dL (3.5-5.7); Albumin/Globulin Ratio 0.7 (1.1-2.2); Alkaline Phosphatase 74 Units/L (34-104); Aspartate Amino Transferase 72 Units/L (13-39); BUN/Creatinine Ratio 27 (6-26); Bilirubin,Indirect 2.6 mg/dL (0.0-1.2); Bilirubin,Total 5.6 mg/dL (0.3-1.0); Blood Urea Nitrogen 10 mg/dL (6-20); Calcium 8.6 mg/dL (8.6-10.3); Carbon Dioxide 28 mEq/L (23-29); Chloride 102 mEq/L (98-107); Globulin 3.6 g/dL (2.4-3.5); Glucose 113 mg/dL (70-105); Osmolality,Calculated 280 (280-300); Potassium 4.2 mEq/L (3.5-5.1); Sodium 135 mEq/L (136-145); Total Protein 6.2 g/dL (6.4-8.9); eGFR For African Americans > 60 (> 60); eGFR For Non-African Americans > 60 (> 60)
[2017-07-13] MEDS ORDERED: Spironolactone 25 MG TABLET PO SCH (09:00)
[2017-07-13] MEDS: methylPREDNISolone 125 MG/2 ML VIAL IVP SCH (09:42)
[2017-07-13] MEDS: Lactulose Oral Soln 20 GM/30 ML UDC PO SCH ×4 (09:42→21:00)
[2017-07-13] MEDS: Furosemide 40 MG/4 ML VIAL IVP SCH (09:42)
[2017-07-13] MEDS: cefTRIAXone 1,000 MG in Water for inj. (sterile) 20 ML 10 ML IVP SCH (09:43)
[2017-07-13] MEDS: MetroNIDAZOLE 500 MG/100 ML 500 MG/100 ML BAG IVPB SCH ×2 (09:44→18:04)
[2017-07-13] MEDS: clonazePAM 1 MG TABLET PO SCH ×4 (09:44→21:00)
[2017-07-13] MEDS: Nicotine 21 MG PATCH.TD24 TD SCH (09:44)
--- NOTE | 2017-07-13 10:50 | Internal Med Progress Note ---
<Michael Bland - Last Filed: 07/13/17 10:48> Date of Encounter: 07/13/17 Time of Encounter: 10:48 - Assessment and plan (1) Alcoholic hepatitis Current Visit: Yes Status: Acute Assessment and plan: T-yajaira trending down. continue IV solumderol MELD Score 26, Meld NA 27. Maddrey's Discriminant Function 73.5 continue ceftriaxone for sbp prophylaxis: patient refused paracentesis initial blood culture results negative. Qualifiers: Ascites presence: with ascites Qualified Code(s): K70.11 - Alcoholic hepatitis with ascites (2) Acute respiratory failure Current Visit: Yes Status: Acute Assessment and plan: 2nd Left upper lobe pna as seen on chest x-ray Oxygenation requirements decreasing now to 3L Start scheduled DuoNeb treatments. On Solu-Medrol for alcohol hepatitis. Fluids discontinued as patient is overloaded. Patient will benefit from paracentesis Qualifiers: Respiratory failure complication: hypoxia Qualified Code(s): J96.01 - Acute respiratory failure with hypoxia (3) Pneumonia Current Visit: Yes Status: Acute Assessment and plan: Unclear secondary to aspiration or coming acquired. Patient currently on ceftriaxone and Flagyl Initial blood cultures negative. This sputum cultures pending. Qualifiers: Pneumonia type: due to unspecified organism Laterality: left Lung location: upper lobe of lung Qualified Code(s): J18.1 - Lobar pneumonia, unspecified organism (4) Anemia Current Visit: Yes Status: Acute Assessment and plan: acute anemia stable no source of bleeding found replaced with 2 units PRBC BP stable continue protonix IV EGD planned for friday possibly to rule out upper GI bleed Qualifiers: Anemia type: other cause Other causes of anemia: acute posthemorrhagic Qualified Code(s): D62 - Acute posthemorrhagic anemia (5) Alcohol abuse Current Visit: Yes Status: Acute Assessment and plan: Ciwa were discontinued. Greater than 72 hours after last drink. (6) Malnutrition Current Visit: Yes Status: Acute Assessment and plan: speech cleared patient for pureed diet continue pureed diet. received albumin Qualifiers: Malnutrition type: protein-calorie malnutrition Protein-calorie malnutrition severity: severe Qualified Code(s): E43 - Unspecified severe protein-calorie malnutrition (7) Coagulopathy Current Visit: Yes Status: Acute Assessment and plan: stable give 2 FFPs since admission continue to monitor (8) Jaundice Current Visit: Yes Status: Acute Assessment and plan: 2nd to alcoholic hepatitis T-yajaira trending down (9) Ascites Current Visit: Yes Status: Acute Assessment and plan: 2nd to alcoholic cirrhosis Again patient refused paracentesis today reports he would like it on friday Qualifiers: Ascites type: due to alcoholic cirrhosis Qualified Code(s): K70.31 - Alcoholic cirrhosis of liver with ascites (10) Hypokalemia Current Visit: Yes Status: Acute Assessment and plan: resolved. (11) Hepatic encephalopathy Current Visit: Yes Status: Acute Assessment and plan: Continues to be encephalopathic Continue lactulose alert to self and place. - Subjective Interval history: Patient is less somnolent today and easily arousable.. Alert to self and place only. Slept well overnight with no acute events. - Constitutional Vitals: Temp Pulse Resp BP Pulse Ox 99.5 F 95 18 107/73 100 07/13/17 07:01 07/13/17 09:35 07/13/17 09:34 07/13/17 07:01 07/13/17 09:34 General appearance: Present: A&O X 2 - Other Additional findings: General: Somnolent, calm HEENT: Improved scleral icterus, dry mucous membranes Heart: Sinus tachycardia Lungs: Rhonchorous bilaterally Abdomen: Soft nontender, distended,ascites, distant bowel sounds Skin: warm and dry, jaundiced improved Extremities: 2+ edema Neuro: Alert to self and place, somnolent, confused. Vascular: Pedal and radial pulses 2 out of 4 Internal Medicine: Result - Labs CBC & Chem 7: 07/13/17 05:15 07/13/17 05:15 Labs: Short CBC 07/13/17 Range/Units 05:15 WBC 11.3 H (4.3-11.1) K/mcL Hgb 7.8 L (12.9-16.9) g/dL Hct 24.3 L (37.5-50.1) % Plt Count 102 L (140-400) K/mcL Neutrophils # 9.2 H (1.6-8.9) K/mcL BMP 07/12/17 07/13/17 19:35 05:15 Sodium 135 L Potassium 4.0 4.2 Chloride 102 Carbon Dioxide 28 BUN 10 Creatinine 0.37 L Glucose 113 H Calcium 8.6 Liver Function 07/13/17 Range/Units 05:15 Total Bilirubin 5.6 H (0.3-1.0) mg/dL Direct Bilirubin 3.0 H (0.0-0.2) mg/dL AST 72 H (13-39) Units/L ALT 20 (7-52) Units/L Alkaline Phosphatase 74 (34-104) Units/L Albumin 2.6 L (3.5-5.7) g/dL Urine 07/12/17 Range/Units 10:35 Urine Color [place] A (Yellow) Urine Clarity [place] A (Clear) Urine pH 6.0 (5.0-8.0) pH Units Ur Specific [place] 1.025 (1.010-1.025) Urine Protein 30 H (Neg-Trace) mg/dL Urine Glucose (UA) Normal (Normal) mg/dL - ABG Interpretation ABG results: PT/INR, D-dimer PT 19.9 Seconds (9.4-12.1) H 07/13/17 05:15 - Impressions Impressions Chest X-Ray 07/12/17 08:11 IMPRESSION: 1. Left upper lobe pneumonia. 2. Low lung volumes with underaeration of the lung bases. 3. Radiographic follow-up recommended to assure resolution. D/ / 07/12/2017 15:37:34 Rio Joya MD / Nirmala Wisdom Interpreting Provider: Rio Joya MD Consult Discharge Plan - Plan Referrals: Lawrence Christianson, PAC [Primary Care Provider] - 07/18/17 10:20 am Raza Palafox MD [Partnered Physician] - (SENT WEB REQUEST ON 07-09-17 @ 0721) <Marni Murillo - Last Filed: 07/13/17 14:11> Date of Encounter: 07/13/17 Time of Encounter: 11:00 - Assessment and plan (1) Acute respiratory failure Current Visit: Yes Status: Acute Qualifiers: Respiratory failure complication: hypoxia Qualified Code(s): J96.01 - Acute respiratory failure with hypoxia (2) Alcoholic hepatitis Current Visit: Yes Status: Acute Qualifiers: Ascites presence: with ascites Qualified Code(s): K70.11 - Alcoholic hepatitis with ascites (3) Anemia Current Visit: Yes Status: Acute Qualifiers: Anemia type: other cause Other causes of anemia: acute posthemorrhagic Qualified Code(s): D62 - Acute posthemorrhagic anemia (4) Pneumonia Current Visit: Yes Status: Acute Qualifiers: Pneumonia type: due to unspecified organism Laterality: left Lung location: upper lobe of lung Qualified Code(s): J18.1 - Lobar pneumonia, unspecified organism (5) Ascites Current Visit: Yes Status: Acute Qualifiers: Ascites type: due to alcoholic cirrhosis Qualified Code(s): K70.31 - Alcoholic cirrhosis of liver with ascites (6) Coagulopathy Current Visit: Yes Status: Acute (7) Common bile duct (CBD) obstruction Current Visit: Yes Status: Acute (8) Hepatic encephalopathy Current Visit: Yes Status: Acute (9) Hypokalemia Current Visit: Yes Status: Acute (10) Malnutrition Current Visit: Yes Status: Acute Qualifiers: Malnutrition type: protein-calorie malnutrition Protein-calorie malnutrition severity: severe Qualified Code(s): E43 - Unspecified severe protein-calorie malnutrition - Constitutional Vitals: Temp Pulse Resp BP Pulse Ox 98.9 F 104 18 103/70 100 07/13/17 13:33 07/13/17 11:50 07/13/17 09:34 07/13/17 11:09 07/13/17 09:34 Internal Medicine: Result - Labs CBC & Chem 7: 07/13/17 05:15 07/13/17 05:15 Labs: Short CBC 07/13/17 Range/Units 05:15 WBC 11.3 H (4.3-11.1) K/mcL Hgb 7.8 L (12.9-16.9) g/dL Hct 24.3 L (37.5-50.1) % Plt Count 102 L (140-400) K/mcL Neutrophils # 9.2 H (1.6-8.9) K/mcL BMP 07/12/17 07/13/17 19:35 05:15 Sodium 135 L Potassium 4.0 4.2 Chloride 102 Carbon Dioxide 28 BUN 10 Creatinine 0.37 L Glucose 113 H Calcium 8.6 Liver Function 07/13/17 Range/Units 05:15 Total Bilirubin 5.6 H (0.3-1.0) mg/dL Direct Bilirubin 3.0 H (0.0-0.2) mg/dL AST 72 H (13-39) Units/L ALT 20 (7-52) Units/L Alkaline Phosphatase 74 (34-104) Units/L Albumin 2.6 L (3.5-5.7) g/dL - ABG Interpretation ABG results: PT/INR, D-dimer PT 19.9 Seconds (9.4-12.1) H 07/13/17 05:15 - Impressions Impressions Chest X-Ray 07/12/17 08:11 IMPRESSION: 1. Left upper lobe pneumonia. 2. Low lung volumes with underaeration of the lung bases. 3. Radiographic follow-up recommended to assure resolution. D/ / 07/12/2017 15:37:34 Rio Joya MD / Nirmala Wisdom Interpreting Provider: Rio Joya MD - Attending Attestation I examined this patient and my medical decision-making was reviewed with the Resident Physician, Michael Bland. I agree with the documented findings, disposition and treatment plan as described with any changes as documented below. Patient is more alert today. Denies any abdominal pain at this time. Awaiting upper GI endoscopy tomorrow. Refused paracentesis at this time. Chest x-ray done yesterday showed left upper lobe pneumonia. Patient has been placed on Flagyl in addition to ceftriaxone. Receiving IV Lasix as not tolerating oral medications well. Transition to his spironolactone/oral Lasix when patient is able to tolerate oral medications better. Continue methylprednisolone and transition to oral prednisolone when patient able to tolerate. No signs of alcohol withdrawal currently. Continue supportive care. Continue thiamine and folic acid and multivitamins. Hemoglobin levels remained stable. Total bilirubin trending down.
--- NOTE | 2017-07-13 15:27 | Procedure Note ---
Date of procedure: 07/13/17 Pre-op diagnosis: ascites Post-op diagnosis: same Procedure: Consent for operation or procedure: Risks and benefits discussed with patient and consent obtained Anesthesia: 5 cc of Lidocaine Patient positioned supine. Abdomen examined with ultrasound for appropriate site placement. Site marked and prepared with chloroprep. Site draped with sterile dressing. Wheel of lidocaine placed. Lidocaine then introduced deep to the peritoneum. Skin punctured with an blade scalpel. Paracentesis needle was placed through the skin into the abdominal cavity. The needle was withdrawn and the site cleaned and bandaged with gauze and tape. Samples were sent to the lab for analysis. Yellow, Clear colored was fluid removed Amount of fluid removed: 2500 Estimated Blood Loss: minimal Complications: The patient tolerated the procedure well without complications. Anesthesia: local Surgeon: Michael Bland Was there an clinical assistant professor present: No Estimated blood loss (cc): 0 Specimen: ascitic fluid Condition: stable Disposition: floor
[2017-07-13 16:26] LABS: Magnesium 1.8 mg/dL (1.6-2.6); Phosphorous 3.3 mg/dL (2.7-4.5)
[2017-07-13 17:24] LABS: Appearance of Body Fluid Clear (Clear); Source of Body Fluid peritoneal/paracente
[2017-07-13 17:25] LABS: Volume of Body Fluid 1100 mL
[2017-07-13] MEDS: Thiamine (B-1) 100 MG, Folic Acid 1 MG, MVI, adult with vitamin K 10 ML in 0.9 % Sodi... IVPB SCH (18:04)
[2017-07-14] MEDS: MetroNIDAZOLE 500 MG/100 ML 500 MG/100 ML BAG IVPB SCH ×3 (00:58→16:29)
[2017-07-14] MEDS: Ipratropium/Albuterol Neb 3 ML IH SCH ×4 (04:54→22:05)
[2017-07-14] MEDS: Pantoprazole 40 MG VIAL IVP SCH ×2 (05:19→17:44)
[2017-07-14 05:42] LABS: Hemoglobin 7.9 g/dL (12.9-16.9)
[2017-07-14 05:44] LABS: Hematocrit 23.8 % (37.5-50.1); Immature Granulocytes % 0.9 % (0-4); Lymphocytes # 1.2 K/mcL (0.6-4.6); Lymphocytes % 11.7 %; Mean Corpuscular HGB Conc 33.2 g/dL (31.6-35.5); Mean Corpuscular Hemoglobin 35.9 pg (28.0-33.3); Mean Corpuscular Volume 108.2 fL (83.0-100.0); Mean Platelet Volume 10.8 fL (9.4-12.4); Monocytes % 10.4 %; Neutrophils # 7.6 K/mcL (1.6-8.9); Red Cell Distribution Width 18.3 % (11.5-14.5)
[2017-07-14 05:46] LABS: Platelet Count 99 K/mcL (140-400)
[2017-07-14 05:48] LABS: Prothrombin Time 21.8 Seconds (9.4-12.1)
[2017-07-14 05:56] LABS: Magnesium 1.9 mg/dL (1.6-2.6); Phosphorous 2.9 mg/dL (2.7-4.5)
[2017-07-14 05:58] LABS: Alanine Aminotransferase 19 Units/L (7-52); Albumin 2.3 g/dL (3.5-5.7); Albumin/Globulin Ratio 0.6 (1.1-2.2); Alkaline Phosphatase 70 Units/L (34-104); Aspartate Amino Transferase 56 Units/L (13-39); BUN/Creatinine Ratio 48 (6-26); Bilirubin,Direct 2.7 mg/dL (0.0-0.2); Bilirubin,Indirect 2.1 mg/dL (0.0-1.2); Bilirubin,Total 4.8 mg/dL (0.3-1.0); Blood Urea Nitrogen 16 mg/dL (6-20); Calcium 8.3 mg/dL (8.6-10.3); Carbon Dioxide 29 mEq/L (23-29); Chloride 104 mEq/L (98-107); Globulin 3.6 g/dL (2.4-3.5); Glucose 109 mg/dL (70-105); Osmolality,Calculated 286 (280-300); Potassium 3.2 mEq/L (3.5-5.1); Sodium 137 mEq/L (136-145); Total Protein 5.9 g/dL (6.4-8.9); eGFR For African Americans > 60 (> 60); eGFR For Non-African Americans > 60 (> 60)
[2017-07-14 06:05] LABS: Platelet Estimate Slight Decrease (Normal)
[2017-07-14 06:06] LABS: Anisocytosis 1+ (Not Present)
[2017-07-14] MEDS: Lactulose Oral Soln 20 GM/30 ML UDC PO SCH ×2 (08:32→20:31)
[2017-07-14] MEDS: Furosemide 40 MG/4 ML VIAL IVP SCH (08:33)
[2017-07-14] MEDS: Nicotine 21 MG PATCH.TD24 TD SCH (08:33)
[2017-07-14] MEDS: methylPREDNISolone 125 MG/2 ML VIAL IVP SCH (08:33)
[2017-07-14] MEDS: clonazePAM 1 MG TABLET PO SCH ×3 (08:33→20:26)
[2017-07-14] MEDS: cefTRIAXone 1,000 MG in Water for inj. (sterile) 20 ML 10 ML IVP SCH (08:34)
[2017-07-14] MEDS: Potassium Phosphate 44 MEQ in 0.9 % Sodium Chloride 250 ML IVPB PRN (08:37)
--- NOTE | 2017-07-14 10:34 | Internal Med Progress Note ---
<Michael Bland - Last Filed: 07/14/17 10:32> Date of Encounter: 07/14/17 Time of Encounter: 10:32 - Assessment and plan (1) Alcoholic hepatitis Current Visit: Yes Status: Acute Assessment and plan: T-yajaira trending down. continue IV solumderol MELD Score 26, Meld NA 27. Maddrey's Discriminant Function 73.5 continue ceftriaxone for sbp prophylaxis: underwent paracentesis: lab analysis negative for infection initial blood culture results negative. Qualifiers: Ascites presence: with ascites Qualified Code(s): K70.11 - Alcoholic hepatitis with ascites (2) Acute respiratory failure Current Visit: Yes Status: Acute Assessment and plan: 2nd Left upper lobe pna as seen on chest x-ray improving Oxygenation requirements decreasing now to 3L Start scheduled DuoNeb treatments. On Solu-Medrol for alcohol hepatitis. Qualifiers: Respiratory failure complication: hypoxia Qualified Code(s): J96.01 - Acute respiratory failure with hypoxia (3) Pneumonia Current Visit: Yes Status: Acute Assessment and plan: Unclear secondary to aspiration or coming acquired. Patient currently on ceftriaxone and Flagyl Initial blood cultures negative. This sputum cultures pending. Qualifiers: Pneumonia type: due to unspecified organism Laterality: left Lung location: upper lobe of lung Qualified Code(s): J18.1 - Lobar pneumonia, unspecified organism (4) Anemia Current Visit: Yes Status: Acute Assessment and plan: acute anemia stable no source of bleeding found replaced with 2 units PRBC BP stable continue protonix IV EGD planned for today Qualifiers: Anemia type: other cause Other causes of anemia: acute posthemorrhagic Qualified Code(s): D62 - Acute posthemorrhagic anemia (5) Alcohol abuse Current Visit: Yes Status: Acute Assessment and plan: Ciwa were discontinued. Greater than 72 hours after last drink. (6) Malnutrition Current Visit: Yes Status: Acute Assessment and plan: speech cleared patient for pureed diet continue pureed diet. received albumin Qualifiers: Malnutrition type: protein-calorie malnutrition Protein-calorie malnutrition severity: severe Qualified Code(s): E43 - Unspecified severe protein-calorie malnutrition (7) Coagulopathy Current Visit: Yes Status: Acute Assessment and plan: stable give 2 FFPs since admission continue to monitor (8) Jaundice Current Visit: Yes Status: Acute Assessment and plan: 2nd to alcoholic hepatitis T-yajaira trending down (9) Ascites Current Visit: Yes Status: Acute Assessment and plan: 2nd to alcoholic cirrhosis s/p paracentsis Qualifiers: Ascites type: due to alcoholic cirrhosis Qualified Code(s): K70.31 - Alcoholic cirrhosis of liver with ascites (10) Hypokalemia Current Visit: Yes Status: Acute Assessment and plan: on electrolyte protocol. (11) Hepatic encephalopathy Current Visit: Yes Status: Acute Assessment and plan: improving Continue lactulose - Subjective Interval history: Patient is easily arousable. He is awake and alert answering questions. Reports improved abdominal discomfort status post paracentesis. He has no new complaints. He continues to require supplemental oxygen and has a productive cough. - Constitutional Vitals: Temp Pulse Resp BP Pulse Ox 98.8 F 87 20 121/85 92 07/14/17 08:05 07/14/17 08:05 07/14/17 08:05 07/14/17 08:05 07/14/17 08:05 General appearance: Present: A&O X 2 - Other Additional findings: General: awake and alert HEENT: Improved scleral icterus, moist mucous membranes Heart: Sinus rhythm w/o murmur Lungs: mild expriatory wheezing Abdomen: Soft nontender, mild distension, positive bowel sounds Skin: warm and dry, jaundiced improving Extremities: 1+ edema Neuro: Alert to self and place time and situation Vascular: Pedal and radial pulses 2 out of 4 Internal Medicine: Result - Labs CBC & Chem 7: 07/14/17 05:13 07/14/17 05:13 Labs: Short CBC 07/14/17 Range/Units 05:13 WBC 9.8 (4.3-11.1) K/mcL Hgb 7.9 L (12.9-16.9) g/dL Hct 23.8 L (37.5-50.1) % Plt Count 99 L (140-400) K/mcL Neutrophils # 7.6 (1.6-8.9) K/mcL BMP 07/14/17 05:13 Sodium 137 Potassium 3.2 L Chloride 104 Carbon Dioxide 29 BUN 16 Creatinine 0.33 L Glucose 109 H Calcium 8.3 L Liver Function 07/14/17 Range/Units 05:13 Total Bilirubin 4.8 H (0.3-1.0) mg/dL Direct Bilirubin 2.7 H (0.0-0.2) mg/dL AST 56 H (13-39) Units/L ALT 19 (7-52) Units/L Alkaline Phosphatase 70 (34-104) Units/L Albumin 2.3 L (3.5-5.7) g/dL - ABG Interpretation ABG results: PT/INR, D-dimer PT 21.8 Seconds (9.4-12.1) H 07/14/17 05:13 Consult Discharge Plan - Plan Referrals: Lawrence Christianson, PAC [Primary Care Provider] - 07/24/17 11:20 am Raza Palafox MD [Partnered Physician] - (SENT WEB REQUEST ON 07-09-17 @ 7842) <Troy Browning H - Last Filed: 07/14/17 17:49> Date of Encounter: 07/14/17 - Assessment and plan (1) Common bile duct (CBD) obstruction Current Visit: Yes Status: Acute (2) Anemia Current Visit: Yes Status: Acute Qualifiers: Anemia type: other cause Other causes of anemia: acute posthemorrhagic Qualified Code(s): D62 - Acute posthemorrhagic anemia (3) Hypokalemia Current Visit: Yes Status: Acute (4) Hepatic encephalopathy Current Visit: Yes Status: Acute (5) Ascites Current Visit: Yes Status: Acute Qualifiers: Ascites type: due to alcoholic cirrhosis Qualified Code(s): K70.31 - Alcoholic cirrhosis of liver with ascites (6) Cholecystitis Current Visit: Yes Status: Acute (7) Elevated LFTs Current Visit: Yes Status: Acute (8) Elevated bilirubin Current Visit: Yes Status: Acute (9) Alcohol abuse Current Visit: Yes Status: Acute (10) Jaundice Current Visit: Yes Status: Acute - Constitutional Vitals: Temp Pulse Resp BP Pulse Ox 97.8 F 73 18 137/88 96 07/14/17 16:40 07/14/17 16:40 07/14/17 16:49 07/14/17 16:40 07/14/17 16:49 Internal Medicine: Result - Labs CBC & Chem 7: 07/14/17 05:13 07/14/17 05:13 Labs: Short CBC 07/14/17 Range/Units 05:13 WBC 9.8 (4.3-11.1) K/mcL Hgb 7.9 L (12.9-16.9) g/dL Hct 23.8 L (37.5-50.1) % Plt Count 99 L (140-400) K/mcL Neutrophils # 7.6 (1.6-8.9) K/mcL BMP 07/14/17 05:13 Sodium 137 Potassium 3.2 L Chloride 104 Carbon Dioxide 29 BUN 16 Creatinine 0.33 L Glucose 109 H Calcium 8.3 L Liver Function 07/14/17 Range/Units 05:13 Total Bilirubin 4.8 H (0.3-1.0) mg/dL Direct Bilirubin 2.7 H (0.0-0.2) mg/dL AST 56 H (13-39) Units/L ALT 19 (7-52) Units/L Alkaline Phosphatase 70 (34-104) Units/L Albumin 2.3 L (3.5-5.7) g/dL - ABG Interpretation ABG results: PT/INR, D-dimer PT 21.8 Seconds (9.4-12.1) H 07/14/17 05:13 - Impressions Impressions Abdomen MRI 07/14/17 09:17 IMPRESSION: 1. Limited examination due to to motion likely due to moderate ascites. 2. Minimal extrahepatic biliary dilation with no definite intrahepatic biliary dilation nor definite findings of choledocholithiasis. 3. Edematous gallbladder wall thickening with resolution of previously seen gallbladder distention. There is also suspected biliary sludge and/or cholelithiasis. While potentially related to cholecystitis, the findings could be related to adjacent liver disease, ascites, and/or a systemic process such as hypoproteinemia. 4. At least mild hepatomegaly with incomplete evaluation of steatosis as seen on the comparison studies. In addition, there is questionable surface nodularity involving subcapsular hepatic segment 8, suggestive of possible underlying fibrotic change without overt findings of cirrhosis. 5. Findings suggestive of portal hypertension, including dilation of main portal vein, mild splenomegaly, and moderate ascites. 6. New moderate to large bilateral pleural effusions. D/ / Adryan Brink MD / Adryan Brink MD Interpreting Provider: Adryan Brink MD - Attending Attestation possible acute blood loss anemia transfused blood continue lactulose for acute hepatic encephalopathy, consider Xifaxan (was very encephalopathic) GI recommendations appreciated, EGD in am?, may increase dose of lactulose if worse Common bile duct obstruction ? and acute cholecystitis?, cholelithiasis continue Rocephin and flagyl had a paracentesis Ultrasound showed: Cholelithiasis, cholecystitis, and possible distal common bile duct obstruction. Moderate ascites. CT showed: 1. Significantly distended gallbladder with gallbladder sludge. No visible dense gallstones or evidence of gallbladder wall thickening. Common bile duct not visualized. Ultrasound evaluation recommended. 2. Large amount of intra-abdominal and pelvic ascites, of uncertain etiology. . I examined this patient and my medical decision-making was reviewed with the Resident Physician. I agree with the documented findings, disposition and treatment plan as described except to the extent set forth below.
[2017-07-14] MEDS ORDERED: 0.9 % Sodium Chloride 500 ML IVC SCH (13:00)
--- NOTE | 2017-07-14 13:20 | Anesthesia Evaluation PreOp ---
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 History: Other (hepatic encephalopathy) Other Medical History: Hepatic (alcoholic hepatic failure), Other (coagulopathy with INR 2.0) Anesthesia History: No Prior Anesthetic Complications Alcohol Use: heavy, recent Drug use: none Medications and Allergies clonazePAM [Klonopin] 2 mg PO TID 02/27/16 [History] 3 Allergy/AdvReac Type Severity Reaction Status Date / Time No Known Allergies Allergy Verified 07/09/17 03:13 - Meds/Allergy Pre-op Review Medications Reviewed: Yes Allergies Reviewed: Yes Beta Blockers on Current Med List: No Anesthesia Results - Labs 07/14/17 05:13 07/14/17 05:13 - Imaging EKG: report reviewed, image reviewed (PROBABLY SINUS TACHYCARDIA Poor R wave progression BASELINE ARTIFACT BASELINE ARTIFACT COMPLICATES ACCURATE INTERPRETATION) Anesthesia Exam Last Vital Signs Temp 98.7 F 07/14/17 12:55 Pulse 86 07/14/17 12:55 Resp 20 07/14/17 12:55 BP 125/87 07/14/17 12:55 Pulse Ox 92 07/14/17 12:55 Weight: 92 kg NPO (# of Hours): > 8 hrs - HEENT Pupil (Motor): Pupils equal, EOMI Mallampati: IV (cannot accurately determine Mallampati due to small mouth opening) Teeth: Poor dentition Oral Opening: Less than or equal to 3 (Very small mouth opening) - UNDERWRITING SPECIALIST LOC: Confused, Disoriented - Cardiac Rhythm: Regular Murmur: None - Pulmonary Breath Sounds: bilateral Clear Respiratory Effort: Symmetrical Anesthesia Assess/Plan ASA Score: 4 Modified Giancarlo Scale for Level of Consciousness: Cooperative, oriented, and tranquil Anesthetic Plan: General (due to potential for variceal bleed and due to difficult airway (will need awake FOI prior to induction of anesthesia)), Precautions (will need awake FOI) Monitoring Plan: Standard Monitors Recovery Plan: PACU
--- NOTE | 2017-07-14 13:44 | Gastroenterology Progress Note ---
Addendum entered and electronically signed by Beatrice Rogers MD 07/14/17 13 :54: After discussion with Dr. Palafox, due to patient's increased risk for morbidity and mortality, coupled with the lack of need to do urgent endoscopy and patient' s stable hemoglobin and lack of signs of bleeding, we will cancel EGD for tomorrow. Endoscopy can be revisited when patient improves clinically. Original Note: <Beatrice Rogers - Last Filed: 07/14/17 13:42> Date of Encounter: 07/14/17 Time of Encounter: 13:42 - Assessment and plan (1) Alcoholic hepatitis Current Visit: Yes Status: Acute Assessment and plan: MELD Score 26, Meld NA 27. Maddrey's Discriminant Function 73.5 -Bilirubin trending downwards -Patient receiving cephalosporin for SBP prophylaxis. -Paracentesis yesterday drained 2.5 liters, fluid cultures preliminarily negative. -EGD moved to tomorrow as anesthesia saying he needs to be in the OR due to risk of bleeding during EGD in context of patient's clinical status including increased risk of esophageal varices. -Patient to get 2 units of FFP tonight. -continue rocephin and steroids. -EGD tomorrow in OR Qualifiers: Ascites presence: with ascites Qualified Code(s): K70.11 - Alcoholic hepatitis with ascites (2) Anemia Current Visit: Yes Status: Acute Assessment and plan: Hgb stable (S/p RBC transfusion). -Transfusion per primary team- Recommend hgb around 7-7.5 so as not to increase portal pressures too high. -npo at midnight for EGD tomorrow. -PPI -continue rocephin and steroids Qualifiers: Anemia type: other cause Other causes of anemia: acute posthemorrhagic Qualified Code(s): D62 - Acute posthemorrhagic anemia (3) Malnutrition Current Visit: Yes Status: Acute Assessment and plan: Albumin and total protein low. -patient's albumin supplemented. -Recommend bringing dietary on board. Qualifiers: Malnutrition type: protein-calorie malnutrition Protein-calorie malnutrition severity: severe Qualified Code(s): E43 - Unspecified severe protein-calorie malnutrition (4) Hepatic encephalopathy Current Visit: Yes Status: Acute Assessment and plan: Agree with lactulose. -Continues to be altered. (5) Coagulopathy Current Visit: Yes Status: Acute Assessment and plan: Patient has been given 3 doses of vitamin K during this hopsitalization and 2 units of FFP. (6) Ascites Current Visit: Yes Status: Acute Assessment and plan: 2.5 liters drained from abdomen yesterday. -fluid analysis preliminarily negative Qualifiers: Ascites type: due to alcoholic cirrhosis Qualified Code(s): K70.31 - Alcoholic cirrhosis of liver with ascites (7) Alcohol abuse Current Visit: Yes Status: Acute Assessment and plan: Patient with chronic history of alcoholism. -Continue vitamin/electrolyte repletion per primary team. -EGD tentatively planned for tomorrow as patient at risk for esophagitis, varices, GI bleeding. - Time Spent With Patient Total time spent is greater than 50% in coordination of care (as documented) at patient's floor/unit and/or counseling patient: - Subjective Interval history: Patient resting comfortably with apparent improvement in mental status. He is alert and able to answer questions. He denies abdominal pain, nausea, vomitting , diarrhea, chest pain, palpitations, shortness of breath, fever, chills, or night sweats. - Constitutional Vitals: Temp Pulse Resp BP Pulse Ox 98.7 F 86 20 125/87 92 07/14/17 12:55 07/14/17 12:55 07/14/17 12:55 07/14/17 12:55 07/14/17 12:55 General appearance: Present: cachectic, A&O X 2, thin - Eye Eye exam: Present: EOMI, scleral icterus - ENT ENT exam: Present: mucous membranes dry - Respiratory Respiratory exam: Present: CTAB. Absent: rales, rhonchi, wheezes - Cardiovascular Cardiovascular exam: Present: +S1, +S2, tachycardia - GI/Abdominal GI/Abdominal exam: Present: hepatomegaly, soft. Absent: diminished bowel sounds , distended, firm, guarding, rebound - Expanded GI/Abdominal Exam GI/Abdominal exam expanded: Present: ascites - Extremities Exam Extremities exam: Present: pedal edema, radial pulses palpable and symmetrical. Absent: warm - Neurological Exam Neurological exam: Present: alert Additional comments: oriented x3 - Skin Skin exam: Present: pallor (jaundice) Results - Labs CBC & Chem 7: 07/14/17 05:13 07/14/17 05:13 Labs: Last Result Calcium 8.3 mg/dL (8.6-10.3) L 07/14/17 05:13 Troponin I < 0.03 ng/mL (< 0.04) 07/08/17 20:38 Triglycerides 64 mg/dL (< 150) 07/09/17 03:18 Entire Visit Hgb 7.9 g/dL (12.9-16.9) L 07/14/17 05:13 Hct 23.8 % (37.5-50.1) L 07/14/17 05:13 Haptoglobin 14 mg/dL (30-200) L 07/10/17 09:51 PT 21.8 Seconds (9.4-12.1) H 07/14/17 05:13 Total Bilirubin 4.8 mg/dL (0.3-1.0) H 07/14/17 05:13 AST 56 Units/L (13-39) H 07/14/17 05:13 ALT 19 Units/L (7-52) 07/14/17 05:13 Ammonia 43 mcmol/L (16-53) 07/14/17 12:15 Lipase 10 Units/L (11-82) L 07/08/17 20:38 - ABG ABG results: PT/INR, D-dimer PT 21.8 Seconds (9.4-12.1) H 07/14/17 05:13 - Impressions Impressions Abdomen MRI 07/14/17 09:17 IMPRESSION: 1. Limited examination due to to motion likely due to moderate ascites. 2. Minimal extrahepatic biliary dilation with no definite intrahepatic biliary dilation nor definite findings of choledocholithiasis. 3. Edematous gallbladder wall thickening with resolution of previously seen gallbladder distention. There is also suspected biliary sludge and/or cholelithiasis. While potentially related to cholecystitis, the findings could be related to adjacent liver disease, ascites, and/or a systemic process such as hypoproteinemia. 4. At least mild hepatomegaly with incomplete evaluation of steatosis as seen on the comparison studies. In addition, there is questionable surface nodularity involving subcapsular hepatic segment 8, suggestive of possible underlying fibrotic change without overt findings of cirrhosis. 5. Findings suggestive of portal hypertension, including dilation of main portal vein, mild splenomegaly, and moderate ascites. 6. New moderate to large bilateral pleural effusions. D/ / Adryan Brink MD / Adryan Brink MD Interpreting Provider: Adryan Brink MD Consult Discharge Plan - Plan Referrals: Lawrence Christianson, PAC [Primary Care Provider] - 07/24/17 11:20 am Raza Palafox MD [Partnered Physician] - (SENT WEB REQUEST ON 07-09-17 @ [phone]) <Raza Palafox - Last Filed: 07/14/17 14:07> Date of Encounter: 07/14/17 - Time Spent With Patient Total time spent is greater than 50% in coordination of care (as documented) at patient's floor/unit and/or counseling patient: - Constitutional Vitals: Temp Pulse Resp BP Pulse Ox 98.7 F 86 20 125/87 92 07/14/17 12:55 07/14/17 12:55 07/14/17 12:55 07/14/17 12:55 07/14/17 12:55 Results - Labs CBC & Chem 7: 07/14/17 05:13 07/14/17 05:13 Labs: Last Result Calcium 8.3 mg/dL (8.6-10.3) L 07/14/17 05:13 Troponin I < 0.03 ng/mL (< 0.04) 07/08/17 20:38 Triglycerides 64 mg/dL (< 150) 07/09/17 03:18 Entire Visit Hgb 7.9 g/dL (12.9-16.9) L 07/14/17 05:13 Hct 23.8 % (37.5-50.1) L 07/14/17 05:13 Haptoglobin 14 mg/dL (30-200) L 07/10/17 09:51 PT 21.8 Seconds (9.4-12.1) H 07/14/17 05:13 Total Bilirubin 4.8 mg/dL (0.3-1.0) H 07/14/17 05:13 AST 56 Units/L (13-39) H 07/14/17 05:13 ALT 19 Units/L (7-52) 07/14/17 05:13 Ammonia 43 mcmol/L (16-53) 07/14/17 12:15 Lipase 10 Units/L (11-82) L 07/08/17 20:38 - ABG ABG results: PT/INR, D-dimer PT 21.8 Seconds (9.4-12.1) H 07/14/17 05:13 - Impressions Impressions Abdomen MRI 07/14/17 09:17 IMPRESSION: 1. Limited examination due to to motion likely due to moderate ascites. 2. Minimal extrahepatic biliary dilation with no definite intrahepatic biliary dilation nor definite findings of choledocholithiasis. 3. Edematous gallbladder wall thickening with resolution of previously seen gallbladder distention. There is also suspected biliary sludge and/or cholelithiasis. While potentially related to cholecystitis, the findings could be related to adjacent liver disease, ascites, and/or a systemic process such as hypoproteinemia. 4. At least mild hepatomegaly with incomplete evaluation of steatosis as seen on the comparison studies. In addition, there is questionable surface nodularity involving subcapsular hepatic segment 8, suggestive of possible underlying fibrotic change without overt findings of cirrhosis. 5. Findings suggestive of portal hypertension, including dilation of main portal vein, mild splenomegaly, and moderate ascites. 6. New moderate to large bilateral pleural effusions. D/ / Adryan Brink MD / Adryan Brink MD Interpreting Provider: Adryan Brink MD - Attending Attestation I examined this patient and my medical decision-making was reviewed with the Resident Physician. I agree with the documented findings, disposition and treatment plan as described except to the extent set forth below. Anesthesia want to electively intubate the patient prior to the EGD but my concern is the patient may not come off the ventilator after intubation. The EGD indication is not urgent we will wait for the patient's clinical status to improve and we will consider EGD doing either as an in or outpatient once his INR is around 1.5 and he is more alert and awake.
[2017-07-14] MEDS: Thiamine (B-1) 100 MG, Folic Acid 1 MG, MVI, adult with vitamin K 10 ML in 0.9 % Sodi... IVPB SCH (17:43)
[2017-07-14 23:16] LABS: Magnesium 1.8 mg/dL (1.6-2.6); Phosphorous 3.1 mg/dL (2.7-4.5); Potassium 3.6 mEq/L (3.5-5.1)
[2017-07-15] MEDS: MetroNIDAZOLE 500 MG/100 ML 500 MG/100 ML BAG IVPB SCH ×4 (00:09→23:13)
[2017-07-15] MEDS: Ipratropium/Albuterol Neb 3 ML IH SCH ×4 (04:01→21:48)
[2017-07-15 05:11] LABS: Hematocrit 23.1 % (37.5-50.1); Hemoglobin 7.6 g/dL (12.9-16.9); Immature Granulocytes % 0.8 % (0-4); Lymphocytes # 0.9 K/mcL (0.6-4.6); Lymphocytes % 9.5 %; Mean Corpuscular HGB Conc 32.9 g/dL (31.6-35.5); Mean Corpuscular Hemoglobin 35.3 pg (28.0-33.3); Mean Corpuscular Volume 107.4 fL (83.0-100.0); Mean Platelet Volume 11.3 fL (9.4-12.4); Monocytes # 0.8 K/mcL (0.0-1.3); Neutrophils # 7.3 K/mcL (1.6-8.9); Platelet Count 106 K/mcL (140-400); Red Blood Count 2.15 M/mcL (4.19-5.50); Red Cell Distribution Width 17.7 % (11.5-14.5); Segmented Neutrophils % 80.7 %
[2017-07-15] MEDS: Pantoprazole 40 MG VIAL IVP SCH ×2 (05:15→17:45)
[2017-07-15 05:30] LABS: Alanine Aminotransferase 18 Units/L (7-52); Albumin 2.1 g/dL (3.5-5.7); Albumin/Globulin Ratio 0.6 (1.1-2.2); Alkaline Phosphatase 67 Units/L (34-104); Aspartate Amino Transferase 51 Units/L (13-39); BUN/Creatinine Ratio 83 (6-26); Bilirubin,Direct 2.1 mg/dL (0.0-0.2); Bilirubin,Indirect 1.6 mg/dL (0.0-1.2); Bilirubin,Total 3.7 mg/dL (0.3-1.0); Blood Urea Nitrogen 19 mg/dL (6-20); Carbon Dioxide 30 mEq/L (23-29); Chloride 104 mEq/L (98-107); Globulin 3.7 g/dL (2.4-3.5); Glucose 120 mg/dL (70-105); Magnesium 2.1 mg/dL (1.6-2.6); Osmolality,Calculated 289 (280-300); Potassium 3.5 mEq/L (3.5-5.1); Sodium 138 mEq/L (136-145); Total Protein 5.8 g/dL (6.4-8.9); eGFR For African Americans > 60 (> 60); eGFR For Non-African Americans > 60 (> 60)
[2017-07-15 06:01] LABS: Platelet Estimate Normal (Normal); Reactive Lymphocytes Present (Not Present)
[2017-07-15] MEDS: cefTRIAXone 1,000 MG in Water for inj. (sterile) 20 ML 10 ML IVP SCH (08:19)
[2017-07-15] MEDS: methylPREDNISolone 125 MG/2 ML VIAL IVP SCH (08:19)
[2017-07-15] MEDS: Lactulose Oral Soln 20 GM/30 ML UDC PO SCH ×3 (08:20→22:04)
[2017-07-15] MEDS: Nicotine 21 MG PATCH.TD24 TD SCH (08:20)
[2017-07-15] MEDS: clonazePAM 1 MG TABLET PO SCH ×2 (08:20→15:34)
[2017-07-15] MEDS: Furosemide 40 MG/4 ML VIAL IVP SCH (08:20)
--- NOTE | 2017-07-15 11:40 | Gastroenterology Progress Note ---
<Beatrice Rogers - Last Filed: 07/15/17 11:37> Date of Encounter: 07/15/17 Time of Encounter: 11:38 - Assessment and plan (1) Alcoholic hepatitis Status: Acute Assessment and plan: MELD Score currently down to 19 from 26 on admission Maddrey's Discriminant Function 73.5 on admission -Bilirubin trending downwards -Patient receiving cephalosporin for SBP prophylaxis. -ascites fluid culture preliminarily negative -continue rocephin -will transition to oral steroids- patient will need to be discharged home on oral steroids. We will start him on 40mg PO prednisone for approximately 5 days , then down to 20mg PO. -No EGD during hospitalization, patient will need to FU in the clinic as an outpatient approximately 1 week to 10 days after discharge. Qualifiers: Ascites presence: with ascites Qualified Code(s): K70.11 - Alcoholic hepatitis with ascites (2) Anemia Status: Acute Assessment and plan: Hgb stable (S/p RBC transfusion). -Transfusion per primary team- Recommend hgb around 7-7.5 so as not to increase portal pressures too high. -PPI -continue rocephin and steroids Qualifiers: Anemia type: other cause Other causes of anemia: acute posthemorrhagic Qualified Code(s): D62 - Acute posthemorrhagic anemia (3) Malnutrition Status: Acute Assessment and plan: Albumin and total protein low. -patient's albumin supplemented. -Recommend bringing dietary on board. Qualifiers: Malnutrition type: protein-calorie malnutrition Protein-calorie malnutrition severity: severe Qualified Code(s): E43 - Unspecified severe protein-calorie malnutrition (4) Hepatic encephalopathy Status: Acute Assessment and plan: Agree with lactulose. -Continues to demonstrate improvement. (5) Coagulopathy Status: Acute Assessment and plan: Patient has been given 3 doses of vitamin K during this hopsitalization and 2 units of FFP. (6) Ascites Status: Acute Assessment and plan: 2.5 liters drained from abdomen two days ago. -fluid analysis preliminarily negative Qualifiers: Ascites type: due to alcoholic cirrhosis Qualified Code(s): K70.31 - Alcoholic cirrhosis of liver with ascites (7) Alcohol abuse Status: Inactive Assessment and plan: Patient with chronic history of alcoholism. -Continue vitamin/electrolyte repletion per primary team. -patient needs discharge home with resources for residential treatment. - Time Spent With Patient Total time spent is greater than 50% in coordination of care (as documented) at patient's floor/unit and/or counseling patient: - Subjective Interval history: Patient resting comfortably with continued improvement in mental status. He is alert and able to answer questions. He denies abdominal pain, nausea, vomitting , diarrhea, chest pain, palpitations, shortness of breath, fever, chills, or night sweats. He is open to [facility] agent residential treatment upon discharge from the hospital. - Constitutional Vitals: Temp Pulse Resp BP Pulse Ox 98.3 F 73 22 109/79 95 07/15/17 07:37 07/15/17 07:44 07/15/17 07:37 07/15/17 07:37 07/15/17 07:37 General appearance: Present: cachectic, cooperative, A&O X 3, thin - Head Head exam: Present: atraumatic - Eye Eye exam: Present: sclera anicteric - ENT ENT exam: Present: mucous membranes dry - Respiratory Respiratory exam: Present: CTAB. Absent: rales, rhonchi, wheezes - Cardiovascular Cardiovascular exam: Present: RRR, +S1, +S2 - GI/Abdominal GI/Abdominal exam: Present: hepatomegaly, soft, no peritoneal signs. Absent: distended, firm, guarding, pulsatile mass, rebound, rigid, tenderness - Expanded GI/Abdominal Exam GI/Abdominal exam expanded: Present: ascites - Extremities Exam Extremities exam: Present: pedal edema (1+) - Neurological Exam Neurological exam: Present: alert, altered, oriented X3 (Patient is rousable and improved, but still lethargic and slow to answer questions) - Skin Skin exam: Present: pallor (improving; jaundice improving) Results - Labs CBC & Chem 7: 07/15/17 04:03 07/15/17 04:03 Labs: Last Result Calcium 8.0 mg/dL (8.6-10.3) L 07/15/17 04:03 Troponin I < 0.03 ng/mL (< 0.04) 07/08/17 20:38 Triglycerides 64 mg/dL (< 150) 07/09/17 03:18 Entire Visit Hgb 7.6 g/dL (12.9-16.9) L 07/15/17 04:03 Hct 23.1 % (37.5-50.1) L 07/15/17 04:03 Haptoglobin 14 mg/dL (30-200) L 07/10/17 09:51 PT 21.8 Seconds (9.4-12.1) H 07/14/17 05:13 Total Bilirubin 3.7 mg/dL (0.3-1.0) H 07/15/17 04:03 AST 51 Units/L (13-39) H 07/15/17 04:03 ALT 18 Units/L (7-52) 07/15/17 04:03 Ammonia 43 mcmol/L (16-53) 07/14/17 12:15 Lipase 10 Units/L (11-82) L 07/08/17 20:38 - ABG ABG results: PT/INR, D-dimer PT 21.8 Seconds (9.4-12.1) H 07/14/17 05:13 - Impressions Impressions Abdomen MRI 07/14/17 09:17 IMPRESSION: 1. Limited examination due to to motion likely due to moderate ascites. 2. Minimal extrahepatic biliary dilation with no definite intrahepatic biliary dilation nor definite findings of choledocholithiasis. 3. Edematous gallbladder wall thickening with resolution of previously seen gallbladder distention. There is also suspected biliary sludge and/or cholelithiasis. While potentially related to cholecystitis, the findings could be related to adjacent liver disease, ascites, and/or a systemic process such as hypoproteinemia. 4. At least mild hepatomegaly with incomplete evaluation of steatosis as seen on the comparison studies. In addition, there is questionable surface nodularity involving subcapsular hepatic segment 8, suggestive of possible underlying fibrotic change without overt findings of cirrhosis. 5. Findings suggestive of portal hypertension, including dilation of main portal vein, mild splenomegaly, and moderate ascites. 6. New moderate to large bilateral pleural effusions. D/ / Adryan Brink MD / Adryan Brink MD Interpreting Provider: Adryan Brink MD Consult Discharge Plan - Plan Instructions: Ciprofloxacin (By mouth), Spironolactone (By mouth), Furosemide ( By mouth), Clonazepam (By mouth), Potassium Chloride (By mouth), Omeprazole (By mouth), Folic Acid (By mouth), Nicotine (Absorbed through the skin), Lactulose ( By mouth), Oxycodone, Rapid Release (By mouth), Methylprednisolone (By mouth) Referrals: Lawrence Christianson, PAC [Primary Care Provider] - (Office will call you for follow up appointment) Raza Palafox MD [Partnered Physician] - (SENT WEB REQUEST ON 07-09-17 @ 6661) Prescriptions: Ciprofloxacin [Cipro] 750 mg PO QWEEK #6 tablet clonazePAM [Klonopin] 1 mg PO TID PRN 7 Days #15 tablet PRN Reason: Anxiety Folic Acid 1 mg PO DAILY #30 tablet Furosemide [Lasix] 40 mg PO DAILY #30 tablet Lactulose 20 gm PO TID #90 mls MethylPREDNISolone [Medrol] 32 mg PO DAILY #12 tablet Multivit/Ca/Min/Fe/FA [Thera M Plus] 1 each PO DAILY #30 tablet Nicotine Patch [Nicoderm] 21 mg TD DAILY #7 patch.td24 Omeprazole [PriLOSEC] 40 mg PO BID #60 cap Potassium Chloride [Klor-Con Sprinkle] 10 meq PO DAILY #30 capsule.er Spironolactone [Aldactone] 100 mg PO DAILY #30 tablet Thiamine (B-1) [Vitamin B-1] 100 mg PO DAILY #100 tablet <Mehrdad Dailey - Last Filed: 07/24/17 12:56> Date of Encounter: 07/15/17 - Time Spent With Patient Total time spent is greater than 50% in coordination of care (as documented) at patient's floor/unit and/or counseling patient: - Constitutional Vitals: Temp Pulse Resp BP Pulse Ox 98.8 F 84 16 102/66 93 07/18/17 12:00 07/18/17 12:00 07/18/17 12:00 07/18/17 12:00 07/18/17 12:00 Results - Labs CBC & Chem 7: 07/17/17 00:42 07/17/17 00:42 Labs: Last Result Calcium 8.1 mg/dL (8.6-10.3) L 07/17/17 00:42 Troponin I < 0.03 ng/mL (< 0.04) 07/08/17 20:38 Triglycerides 64 mg/dL (< 150) 07/09/17 03:18 Entire Visit Hgb 8.4 g/dL (12.9-16.9) L 07/17/17 00:42 Hct 25.7 % (37.5-50.1) L 07/17/17 00:42 Haptoglobin 14 mg/dL (30-200) L 07/10/17 09:51 PT 18.8 Seconds (9.4-12.1) H 07/17/17 00:42 Total Bilirubin 3.7 mg/dL (0.3-1.0) H 07/15/17 04:03 AST 51 Units/L (13-39) H 07/15/17 04:03 ALT 18 Units/L (7-52) 07/15/17 04:03 Ammonia 43 mcmol/L (16-53) 07/14/17 12:15 Lipase 10 Units/L (11-82) L 07/08/17 20:38 - ABG ABG results: PT/INR, D-dimer PT 18.8 Seconds (9.4-12.1) H 07/17/17 00:42 - Attending Attestation Pt with cirrhosis, decompensated with portal hypertension and ascites. Needs follow up at office. Treat for SBP agree I examined this patient and my medical decision-making was reviewed with the Resident Physician. I agree with the documented findings, disposition and treatment plan as described except to the extent set forth below.
--- NOTE | 2017-07-15 13:37 | Internal Med Progress Note ---
<Michael Bland - Last Filed: 07/15/17 13:31> Date of Encounter: 07/15/17 Time of Encounter: 13:31 - Assessment and plan (1) Alcoholic hepatitis Current Visit: Yes Status: Resolved Assessment and plan: T-yajaira trending down. Resolving. IV Solu-Medrol transitioned to by mouth prednisone. MELD Score 26, Meld NA 27. Maddrey's Discriminant Function 73.5 continue ceftriaxone for sbp prophylaxis: underwent paracentesis: lab analysis negative for infection initial blood culture results negative. Qualifiers: Ascites presence: with ascites Qualified Code(s): K70.11 - Alcoholic hepatitis with ascites (2) Acute respiratory failure Current Visit: Yes Status: Acute Assessment and plan: 2nd Left upper lobe pna as seen on chest x-ray Increased oxygenation requirements up to 4.5 L. Continue DuoNeb treatments. On prednisone 40 mg daily. Repeat chest x-ray. Qualifiers: Respiratory failure complication: hypoxia Qualified Code(s): J96.01 - Acute respiratory failure with hypoxia (3) Pneumonia Current Visit: Yes Status: Acute Assessment and plan: Unclear secondary to aspiration or coming acquired. Patient currently on ceftriaxone day 7 and Flagyl day 3 Initial blood cultures negative. This sputum cultures pending. Qualifiers: Pneumonia type: due to unspecified organism Laterality: left Lung location: upper lobe of lung Qualified Code(s): J18.1 - Lobar pneumonia, unspecified organism (4) Anemia Current Visit: Yes Status: Acute Assessment and plan: Patient's hemoglobin stable. GI reports endoscopies to risky at this point. Patient will be on PPI by mouth twice a day. Patient will eventually need a endoscopy outpatient. Follow-up with GI outpatient. Qualifiers: Anemia type: other cause Other causes of anemia: acute posthemorrhagic Qualified Code(s): D62 - Acute posthemorrhagic anemia (5) Alcohol abuse Current Visit: Yes Status: Chronic Assessment and plan: Ciwa were discontinued. Greater than 72 hours after last drink. Patient offered resources for help with treatment of alcohol abuse. At this point he is done drinking alcohol and will not need any resources (6) Malnutrition Current Visit: Yes Status: Acute Assessment and plan: speech cleared patient for pureed diet continue pureed diet. received albumin ensure TID Qualifiers: Malnutrition type: protein-calorie malnutrition Protein-calorie malnutrition severity: severe Qualified Code(s): E43 - Unspecified severe protein-calorie malnutrition (7) Coagulopathy Current Visit: Yes Status: Acute Assessment and plan: stable continue to monitor (8) Jaundice Current Visit: Yes Status: Resolved Assessment and plan: 2nd to alcoholic hepatitis T-yajaira trending down jaundice resolved (9) Ascites Current Visit: Yes Status: Acute Assessment and plan: 2nd to alcoholic cirrhosis s/p paracentsis Qualifiers: Ascites type: due to alcoholic cirrhosis Qualified Code(s): K70.31 - Alcoholic cirrhosis of liver with ascites (10) Hypokalemia Current Visit: Yes Status: Acute Assessment and plan: stable on electrolyte protocol. (11) Hepatic encephalopathy Current Visit: Yes Status: Resolved Assessment and plan: resolved alert and oriented x3 ammonia WNL Continue lactulose - Subjective Interval history: Patient is easily arousable. He is awake and alert answering questions. Alert and oriented 3. He has no new complaints. He continues to require supplemental oxygen and has a productive cough. - Constitutional Vitals: Temp Pulse Resp BP Pulse Ox 97.8 F 82 17 105/71 93 07/15/17 11:37 07/15/17 11:37 07/15/17 11:37 07/15/17 11:37 07/15/17 11:37 General appearance: Present: A&O X 2, A&O X 3 - Other Additional findings: General: awake and alert HEENT: Improved scleral icterus, moist mucous membranes Heart: Sinus rhythm w/o murmur Lungs: mild expriatory wheezing Abdomen: Soft nontender, mild distension, positive bowel sounds Skin: warm and dry, jaundiced improving Extremities: Absent pedal edema Neuro: Alert to self and place time and situation Vascular: Pedal and radial pulses 2 out of 4 Internal Medicine: Result - Labs CBC & Chem 7: 07/15/17 04:03 07/15/17 04:03 Labs: Short CBC 07/15/17 Range/Units 04:03 WBC 9.1 (4.3-11.1) K/mcL Hgb 7.6 L (12.9-16.9) g/dL Hct 23.1 L (37.5-50.1) % Plt Count 106 L (140-400) K/mcL Neutrophils # 7.3 (1.6-8.9) K/mcL BMP 07/14/17 07/15/17 22:34 04:03 Sodium 138 Potassium 3.6 3.5 Chloride 104 Carbon Dioxide 30 H BUN 19 Creatinine 0.23 L Glucose 120 H Calcium 8.0 L Liver Function 07/15/17 Range/Units 04:03 Total Bilirubin 3.7 H (0.3-1.0) mg/dL Direct Bilirubin 2.1 H (0.0-0.2) mg/dL AST 51 H (13-39) Units/L ALT 18 (7-52) Units/L Alkaline Phosphatase 67 (34-104) Units/L Albumin 2.1 L (3.5-5.7) g/dL - ABG Interpretation ABG results: PT/INR, D-dimer PT 21.8 Seconds (9.4-12.1) H 07/14/17 05:13 Consult Discharge Plan - Plan Referrals: Lawrence Christianson, PAC [Primary Care Provider] - 07/24/17 11:20 am Raza Palafox MD [Partnered Physician] - (SENT WEB REQUEST ON 07-09-17 @ [id number]) <Lee Thomason - Last Filed: 07/15/17 19:05> Date of Encounter: 07/15/17 - Assessment and plan (1) Acute respiratory failure Current Visit: Yes Status: Acute Qualifiers: Respiratory failure complication: hypoxia Qualified Code(s): J96.01 - Acute respiratory failure with hypoxia (2) Alcoholic hepatitis Current Visit: Yes Status: Resolved Qualifiers: Ascites presence: with ascites Qualified Code(s): K70.11 - Alcoholic hepatitis with ascites (3) Hepatic encephalopathy Current Visit: Yes Status: Resolved (4) Anemia Current Visit: Yes Status: Acute Qualifiers: Anemia type: other cause Other causes of anemia: acute posthemorrhagic Qualified Code(s): D62 - Acute posthemorrhagic anemia (5) Coagulopathy Current Visit: Yes Status: Acute (6) Pneumonia Current Visit: Yes Status: Suspected Qualifiers: Pneumonia type: aspiration pneumonia Aspiration pneumonia type: due to gastric secretions Laterality: left Lung location: upper lobe of lung Qualified Code(s): J69.0 - Pneumonitis due to inhalation of food and vomit (7) Alcohol abuse Current Visit: Yes Status: Chronic - Constitutional Vitals: Temp Pulse Resp BP Pulse Ox 98.1 F 75 21 107/71 97 07/15/17 15:00 07/15/17 15:00 07/15/17 15:00 07/15/17 15:00 07/15/17 15:00 Internal Medicine: Result - Labs CBC & Chem 7: 07/15/17 04:03 07/15/17 04:03 Labs: Short CBC 07/15/17 Range/Units 04:03 WBC 9.1 (4.3-11.1) K/mcL Hgb 7.6 L (12.9-16.9) g/dL Hct 23.1 L (37.5-50.1) % Plt Count 106 L (140-400) K/mcL Neutrophils # 7.3 (1.6-8.9) K/mcL BMP 07/14/17 07/15/17 22:34 04:03 Sodium 138 Potassium 3.6 3.5 Chloride 104 Carbon Dioxide 30 H BUN 19 Creatinine 0.23 L Glucose 120 H Calcium 8.0 L Liver Function 07/15/17 Range/Units 04:03 Total Bilirubin 3.7 H (0.3-1.0) mg/dL Direct Bilirubin 2.1 H (0.0-0.2) mg/dL AST 51 H (13-39) Units/L ALT 18 (7-52) Units/L Alkaline Phosphatase 67 (34-104) Units/L Albumin 2.1 L (3.5-5.7) g/dL - ABG Interpretation ABG results: PT/INR, D-dimer PT 21.8 Seconds (9.4-12.1) H 07/14/17 05:13 - Impressions Impressions Chest X-Ray 07/15/17 13:40 IMPRESSION: Airspace disease throughout both lungs suggesting diffuse pneumonia or pulmonary edema. D/ / 07/15/2017 14:36:09 Adryan Myles MD / [email or web address] Interpreting Provider: Adryan Myles MD - Attending Attestation I examined this patient and my medical decision-making was reviewed with the Resident Physician on 07/15/17. I agree with the documented findings, disposition and treatment plan as described except to the extent set forth below. Mr Hernández is currently admitted for acute resp failure and alcoholic hepatitis. He remains moderate to high risk due to potential for worsening clinical status. Mr Hernández has been requiring higher levels of oxygen today. No fever. Seems to be more alert. Son at bedside and feels he is doing somewhat better. Feels very weak. Exam alert Comfortable Mucus membranes dry Heart reg Lungs diminished Abd soft and nontender I/P 1. Resp failure 2. Alcoholic hepatitis Further diagnoses and plan as above.
[2017-07-15 14:22] LABS: VBG HCO3 30 mEq/L (21-27); VBG PCO2 38 mmHg (41-51); VBG PO2 200 mmHg (25-50)
[2017-07-15] MEDS: Thiamine (B-1) 100 MG, Folic Acid 1 MG, MVI, adult with vitamin K 10 ML in 0.9 % Sodi... IVPB SCH (17:44)
[2017-07-15] MEDS: Ondansetron 4 MG/2 ML VIAL IVP PRN (17:45)
[2017-07-16] MEDS: clonazePAM 1 MG TABLET PO SCH ×4 (00:07→20:39)
[2017-07-16] MEDS: Ipratropium/Albuterol Neb 3 ML IH SCH ×5 (03:34→22:41)
[2017-07-16 05:06] LABS: Basophils % 0.1 %; Hematocrit 24.9 % (37.5-50.1); Hemoglobin 8.4 g/dL (12.9-16.9); Immature Granulocytes % 0.5 % (0-4); Lymphocytes # 1.1 K/mcL (0.6-4.6); Mean Corpuscular HGB Conc 33.7 g/dL (31.6-35.5); Mean Corpuscular Hemoglobin 36.4 pg (28.0-33.3); Mean Corpuscular Volume 107.8 fL (83.0-100.0); Monocytes # 0.8 K/mcL (0.0-1.3); Monocytes % 7.5 %; Neutrophils # 8.7 K/mcL (1.6-8.9); Platelet Count 124 K/mcL (140-400); Red Blood Count 2.31 M/mcL (4.19-5.50); Red Cell Distribution Width 17.9 % (11.5-14.5); Segmented Neutrophils % 81.9 %
[2017-07-16 05:06] LABS: VBG Ionized Calcium 1.15 mmol/L (1.15-1.35)
[2017-07-16 05:18] LABS: Magnesium 1.8 mg/dL (1.6-2.6); Phosphorous 2.1 mg/dL (2.7-4.5)
[2017-07-16 05:20] LABS: BUN/Creatinine Ratio 56 (6-26); Blood Urea Nitrogen 22 mg/dL (6-20); Calcium 8.2 mg/dL (8.6-10.3); Carbon Dioxide 30 mEq/L (23-29); Chloride 105 mEq/L (98-107); Glucose 154 mg/dL (70-105); Osmolality,Calculated 290 (280-300); Potassium 3.1 mEq/L (3.5-5.1); Sodium 137 mEq/L (136-145); eGFR For African Americans > 60 (> 60); eGFR For Non-African Americans > 60 (> 60)
[2017-07-16 05:33] LABS: Anisocytosis 1+ (Not Present); Hypochromasia Present (Not Present); Platelet Estimate Slight Decrease (Normal)
[2017-07-16] MEDS: Pantoprazole 40 MG VIAL IVP SCH (05:37)
[2017-07-16] MEDS: MetroNIDAZOLE 500 MG/100 ML 500 MG/100 ML BAG IVPB SCH ×3 (08:23→23:54)
[2017-07-16] MEDS: Nicotine 21 MG PATCH.TD24 TD SCH (08:24)
[2017-07-16] MEDS: cefTRIAXone 1,000 MG in Water for inj. (sterile) 20 ML 10 ML IVP SCH (08:24)
[2017-07-16] MEDS: Thiamine (B-1) 100 MG TABLET PO SCH (08:25)
[2017-07-16] MEDS: Folic Acid 1 MG TABLET PO SCH (08:25)
[2017-07-16] MEDS: Multivit/Ca/Min/Fe/FA 1 TAB TABLET PO SCH (08:25)
[2017-07-16] MEDS: Lactulose Oral Soln 20 GM/30 ML UDC PO SCH ×3 (08:26→20:41)
--- NOTE | 2017-07-16 08:31 | Gastroenterology Progress Note ---
<JasonyuniorBeatrice fregoso - Last Filed: 07/16/17 10:45> Date of Encounter: 07/16/17 Time of Encounter: 08:26 - Assessment and plan (1) Alcoholic hepatitis Current Visit: Yes Status: Resolved Assessment and plan: MELD Score currently down to 19 from 26 on admission Maddrey's Discriminant Function 73.5 on admission -Bilirubin trending downwards -Patient receiving cephalosporin for SBP prophylaxis. -ascites fluid culture negative for infection -continue rocephin -will change oral steroids from prednisolone to methylprednisolone. Recommend 32 mg PO for 2 weeks, then 16 mg PO for 2 weeks, then 8mg PO for 1 week. -Recommend discharge home with multivitamins and thiamine. -No EGD during hospitalization, patient will need to FU in the clinic with Dr. Palafox as an outpatient approximately 2 weeks after discharge. Qualifiers: Ascites presence: with ascites Qualified Code(s): K70.11 - Alcoholic hepatitis with ascites (2) Anemia Current Visit: Yes Status: Acute Assessment and plan: Hgb stable (S/p RBC transfusion). -Transfusion per primary team- Recommend hgb around 7-7.5 so as not to increase portal pressures too high. -PPI -continue rocephin and steroids Qualifiers: Anemia type: other cause Other causes of anemia: acute posthemorrhagic Qualified Code(s): D62 - Acute posthemorrhagic anemia (3) Malnutrition Current Visit: Yes Status: Acute Assessment and plan: Albumin and total protein low. -patient's albumin supplemented. Qualifiers: Malnutrition type: protein-calorie malnutrition Protein-calorie malnutrition severity: severe Qualified Code(s): E43 - Unspecified severe protein-calorie malnutrition (4) Hepatic encephalopathy Current Visit: Yes Status: Resolved Assessment and plan: Agree with lactulose. -Continues to demonstrate improvement. (5) Coagulopathy Current Visit: Yes Status: Acute Assessment and plan: Patient has been given 3 doses of vitamin K during this hopsitalization and 2 units of FFP. (6) Ascites Current Visit: Yes Status: Acute Assessment and plan: 2.5 liters drained from abdomen 3 days ago. -fluid analysis preliminarily negative Qualifiers: Ascites type: due to alcoholic cirrhosis Qualified Code(s): K70.31 - Alcoholic cirrhosis of liver with ascites (7) Alcohol abuse Current Visit: Yes Status: Chronic Assessment and plan: Patient with chronic history of alcoholism. -Continue vitamin/electrolyte repletion per primary team. -patient needs discharge home with resources for residential treatment. Resources provided. - Time Spent With Patient Total time spent is greater than 50% in coordination of care (as documented) at patient's floor/unit and/or counseling patient: - Subjective Interval history: Patient's mental status continues to improve. He is AAOx3. He has no complaints other than fatigue and deconditioning. He states a desire to quit drinking and understanding that he needs to follow up his commitment with treatment or relapse is likely. He continues to require 4 L NC o2. Denies cough, nausea, vomitting, black or bloody bowel movement, or abdominal pain. - Constitutional Vitals: Temp Pulse Resp BP Pulse Ox 98.2 F 73 17 112/74 90 07/16/17 07:53 07/16/17 07:53 07/16/17 07:53 07/16/17 07:53 07/16/17 07:53 General appearance: Present: cachectic, cooperative, A&O X 3, thin - Head Head exam: Present: atraumatic, normocephalic - Eye Eye exam: Present: EOMI, sclera anicteric - Respiratory Respiratory exam: Present: rales (bilateral bases). Absent: respiratory distress, rhonchi, wheezes - Cardiovascular Cardiovascular exam: Present: RRR, +S1, +S2 - GI/Abdominal GI/Abdominal exam: Present: hepatomegaly, normal bowel sounds, soft, no peritoneal signs. Absent: firm, guarding - Expanded GI/Abdominal Exam GI/Abdominal exam expanded: Present: ascites - Extremities Exam Extremities exam: Present: pedal edema - Neurological Exam Neurological exam: Present: alert, oriented X3 Additional comments: mild tremor bilaterally - Skin Skin exam: Present: pallor (jaundice improving) Results - Labs CBC & Chem 7: 07/16/17 04:53 07/16/17 04:53 Labs: Last Result Calcium 8.2 mg/dL (8.6-10.3) L 07/16/17 04:53 Troponin I < 0.03 ng/mL (< 0.04) 07/08/17 20:38 Triglycerides 64 mg/dL (< 150) 07/09/17 03:18 Entire Visit Hgb 8.4 g/dL (12.9-16.9) L 07/16/17 04:53 Hct 24.9 % (37.5-50.1) L 07/16/17 04:53 Haptoglobin 14 mg/dL (30-200) L 07/10/17 09:51 PT 21.8 Seconds (9.4-12.1) H 07/14/17 05:13 Total Bilirubin 3.7 mg/dL (0.3-1.0) H 07/15/17 04:03 AST 51 Units/L (13-39) H 07/15/17 04:03 ALT 18 Units/L (7-52) 07/15/17 04:03 Ammonia 43 mcmol/L (16-53) 07/14/17 12:15 Lipase 10 Units/L (11-82) L 07/08/17 20:38 - ABG ABG results: PT/INR, D-dimer PT 21.8 Seconds (9.4-12.1) H 07/14/17 05:13 - Impressions Impressions Chest X-Ray 07/15/17 13:40 IMPRESSION: Airspace disease throughout both lungs suggesting diffuse pneumonia or pulmonary edema. D/ / 07/15/2017 14:36:09 Adryan Myles MD / [email or web address] Interpreting Provider: Adryan Myles MD Consult Discharge Plan - Plan Referrals: Lawrence Christianson, PAC [Primary Care Provider] - 07/24/17 11:20 am Raza Palafox MD [Partnered Physician] - (SENT WEB REQUEST ON 07-09-17 @ 0742) <Raza Palafox - Last Filed: 07/16/17 19:05> Date of Encounter: 07/16/17 Time of Encounter: 14:30 - Time Spent With Patient Total time spent is greater than 50% in coordination of care (as documented) at patient's floor/unit and/or counseling patient: - Constitutional Vitals: Temp Pulse Resp BP Pulse Ox 98.1 F 88 18 104/72 90 07/16/17 15:55 07/16/17 15:57 07/16/17 15:55 07/16/17 15:55 07/16/17 15:55 Results - Labs CBC & Chem 7: 07/16/17 04:53 07/16/17 12:18 Labs: Last Result Calcium 8.2 mg/dL (8.6-10.3) L 07/16/17 04:53 Troponin I < 0.03 ng/mL (< 0.04) 07/08/17 20:38 Triglycerides 64 mg/dL (< 150) 07/09/17 03:18 Entire Visit Hgb 8.4 g/dL (12.9-16.9) L 07/16/17 04:53 Hct 24.9 % (37.5-50.1) L 07/16/17 04:53 Haptoglobin 14 mg/dL (30-200) L 07/10/17 09:51 PT 21.8 Seconds (9.4-12.1) H 07/14/17 05:13 Total Bilirubin 3.7 mg/dL (0.3-1.0) H 07/15/17 04:03 AST 51 Units/L (13-39) H 07/15/17 04:03 ALT 18 Units/L (7-52) 07/15/17 04:03 Ammonia 43 mcmol/L (16-53) 07/14/17 12:15 Lipase 10 Units/L (11-82) L 07/08/17 20:38 - ABG ABG results: PT/INR, D-dimer PT 21.8 Seconds (9.4-12.1) H 07/14/17 05:13 - Attending Attestation I examined this patient and my medical decision-making was reviewed with the Resident Physician. I agree with the documented findings, disposition and treatment plan as described except to the extent set forth below.
[2017-07-16] MEDS ORDERED: Spironolactone 25 MG TABLET PO SCH (09:00)
[2017-07-16] MEDS ORDERED: predniSONE 20 MG TABLET PO SCH (09:00)
[2017-07-16 13:10] LABS: Magnesium 1.9 mg/dL (1.6-2.6); Phosphorous 2.1 mg/dL (2.7-4.5)
--- NOTE | 2017-07-16 13:52 | Internal Med Progress Note ---
<Michael Bland - Last Filed: 07/16/17 13:48> Date of Encounter: 07/16/17 Time of Encounter: 13:48 - Assessment and plan (1) Acute respiratory failure Current Visit: Yes Status: Acute Assessment and plan: 2nd Left upper lobe pna as seen on chest x-ray repeat CXR shows worsening oxygenation requirements up to 4.5 L: not on O2 at home Continue DuoNeb treatments. continue steroids Qualifiers: Respiratory failure complication: hypoxia Qualified Code(s): J96.01 - Acute respiratory failure with hypoxia (2) Alcoholic hepatitis Current Visit: Yes Status: Resolved Assessment and plan: T-yajaira trending down. Resolving. continue methylprednisone 32 mg daily appreciate GI input continue ceftriaxone for sbp prophylaxis: underwent paracentesis: lab analysis negative for infection initial blood culture results negative. Qualifiers: Ascites presence: with ascites Qualified Code(s): K70.11 - Alcoholic hepatitis with ascites (3) Pneumonia Current Visit: Yes Status: Acute Assessment and plan: Unclear secondary to aspiration or community acquired. Patient currently on ceftriaxone day 8 and Flagyl day 4 Initial blood cultures negative. This sputum cultures pending. Qualifiers: Pneumonia type: aspiration pneumonia Aspiration pneumonia type: due to gastric secretions Laterality: left Lung location: upper lobe of lung Qualified Code(s): J69.0 - Pneumonitis due to inhalation of food and vomit (4) Anemia Current Visit: Yes Status: Resolved Assessment and plan: Patient's hemoglobin stable. GI reports endoscopies to risky at this point. Patient will be on PPI by mouth twice a day. Patient will eventually need a endoscopy outpatient. Follow-up with GI outpatient. Qualifiers: Anemia type: other cause Other causes of anemia: acute posthemorrhagic Qualified Code(s): D62 - Acute posthemorrhagic anemia (5) Alcohol abuse Current Visit: Yes Status: Chronic Assessment and plan: patient offered resources for help with alcoholism. (6) Malnutrition Current Visit: Yes Status: Acute Assessment and plan: speech cleared patient for pureed diet continue pureed diet. ensure TID Qualifiers: Malnutrition type: protein-calorie malnutrition Protein-calorie malnutrition severity: severe Qualified Code(s): E43 - Unspecified severe protein-calorie malnutrition (7) Ascites Current Visit: Yes Status: Resolved Assessment and plan: 2nd to alcoholic cirrhosis s/p paracentsis patient abdomen more distended today may need repeat paracentesis. Qualifiers: Ascites type: due to alcoholic cirrhosis Qualified Code(s): K70.31 - Alcoholic cirrhosis of liver with ascites (8) Hypokalemia Current Visit: Yes Status: Acute Assessment and plan: stable on electrolyte protocol. (9) Hepatic encephalopathy Current Visit: Yes Status: Resolved Assessment and plan: resolved alert and oriented x3 ammonia WNL Continue lactulose - Subjective Interval history: Alert and oriented x3. Continues to require supplemental O2 4.5L. He denies any complaints. - Constitutional Vitals: Temp Pulse Resp BP Pulse Ox 98.8 F 82 18 108/71 87 07/16/17 11:47 07/16/17 11:47 07/16/17 11:47 07/16/17 11:47 07/16/17 11:47 General appearance: Present: A&O X 3 - Other Additional findings: General: Pleasant without distress Heart: Regular rate and rhythm without murmur Lungs: Clear to auscultation bilaterally, diminished, poor effort. Abdomen: Soft nontender, nondistended positive bowel sounds Skin: warm and dry Extremities: Absent pedal edema, Neuro: alert and oriented x3 Vascular: Pedal and radial pulses 2 out of 4. Internal Medicine: Result - Labs CBC & Chem 7: 07/16/17 04:53 07/16/17 12:18 Labs: Short CBC 07/16/17 Range/Units 04:53 WBC 10.6 (4.3-11.1) K/mcL Hgb 8.4 L (12.9-16.9) g/dL Hct 24.9 L (37.5-50.1) % Plt Count 124 L (140-400) K/mcL Neutrophils # 8.7 (1.6-8.9) K/mcL BMP 07/16/17 07/16/17 04:53 12:18 Sodium 137 Potassium 3.1 L 3.5 Chloride 105 Carbon Dioxide 30 H BUN 22 H Creatinine 0.39 L Glucose 154 H Calcium 8.2 L - ABG Interpretation ABG results: PT/INR, D-dimer PT 21.8 Seconds (9.4-12.1) H 07/14/17 05:13 - Impressions Impressions Chest X-Ray 07/15/17 13:40 IMPRESSION: Airspace disease throughout both lungs suggesting diffuse pneumonia or pulmonary edema. D/ / 07/15/2017 14:36:09 Adryan Myles MD / [email or web address] Interpreting Provider: Adryan Myles MD Consult Discharge Plan - Plan Referrals: Lawrence Christianson, PAC [Primary Care Provider] - 07/24/17 11:20 am Raza Palafox MD [Partnered Physician] - (SENT WEB REQUEST ON 07-09-17 @ 0707) <Lee Thomason - Last Filed: 07/16/17 17:52> Date of Encounter: 07/16/17 - Assessment and plan (1) Acute respiratory failure Current Visit: Yes Status: Acute Qualifiers: Respiratory failure complication: hypoxia Qualified Code(s): J96.01 - Acute respiratory failure with hypoxia (2) Alcoholic hepatitis Current Visit: Yes Status: Resolved Qualifiers: Ascites presence: with ascites Qualified Code(s): K70.11 - Alcoholic hepatitis with ascites (3) Hepatic encephalopathy Current Visit: Yes Status: Resolved (4) Anemia Current Visit: Yes Status: Resolved Qualifiers: Anemia type: other cause Other causes of anemia: acute posthemorrhagic Qualified Code(s): D62 - Acute posthemorrhagic anemia (5) Coagulopathy Current Visit: Yes Status: Acute (6) Pneumonia Current Visit: Yes Status: Acute Qualifiers: Pneumonia type: aspiration pneumonia Aspiration pneumonia type: due to gastric secretions Laterality: left Lung location: upper lobe of lung Qualified Code(s): J69.0 - Pneumonitis due to inhalation of food and vomit (7) Alcohol abuse Current Visit: Yes Status: Chronic - Constitutional Vitals: Temp Pulse Resp BP Pulse Ox 98.1 F 88 18 104/72 90 07/16/17 15:55 07/16/17 15:57 07/16/17 15:55 07/16/17 15:55 07/16/17 15:55 Internal Medicine: Result - Labs CBC & Chem 7: 07/16/17 04:53 07/16/17 12:18 Labs: Short CBC 07/16/17 Range/Units 04:53 WBC 10.6 (4.3-11.1) K/mcL Hgb 8.4 L (12.9-16.9) g/dL Hct 24.9 L (37.5-50.1) % Plt Count 124 L (140-400) K/mcL Neutrophils # 8.7 (1.6-8.9) K/mcL BMP 07/16/17 07/16/17 04:53 12:18 Sodium 137 Potassium 3.1 L 3.5 Chloride 105 Carbon Dioxide 30 H BUN 22 H Creatinine 0.39 L Glucose 154 H Calcium 8.2 L - ABG Interpretation ABG results: PT/INR, D-dimer PT 21.8 Seconds (9.4-12.1) H 07/14/17 05:13 - Attending Attestation I examined this patient and my medical decision-making was reviewed with the Resident Physician on 07/16/17. I agree with the documented findings, disposition and treatment plan as described except to the extent set forth below. Mr Hernández is currently admitted for acute alcoholic hepatitis and resp failure. He remains moderate to high risk due to potential for worsening respiratory and clinical status. Mr Hernández is more alert and oriented today. PT/OT has recommended SNF. He is agreeable at this time. No fever. Has been on higher oxygen levels. Exam alert Comfortable Mucus membranes dry Heart reg and not tachy Lungs diminished Abd distended and nontender. I/P 1. Resp failure - multifactorial. Pneumonia, fluid, ascites 2. Acute alcoholic hepatitis - weaning steroids May need repeat paracentesis Working on d/c to SNF - precert needs to be obtained. Further diagnoses and plan as above.
[2017-07-16] MEDS: Potassium Phosphate 44 MEQ in 0.9 % Sodium Chloride 250 ML IVPB PRN (14:38)
[2017-07-16] MEDS: Furosemide 20 MG TABLET PO SCH (15:51)
[2017-07-16] MEDS: Ondansetron 4 MG/2 ML VIAL IVP PRN (20:40)
[2017-07-17 01:53] LABS: Eosinophils % 0.1 %; Hematocrit 25.7 % (37.5-50.1); Hemoglobin 8.4 g/dL (12.9-16.9); Immature Granulocytes % 0.6 % (0-4); Lymphocytes % 11.8 %; Mean Corpuscular HGB Conc 32.7 g/dL (31.6-35.5); Mean Corpuscular Hemoglobin 35.4 pg (28.0-33.3); Mean Corpuscular Volume 108.4 fL (83.0-100.0); Monocytes # 0.6 K/mcL (0.0-1.3); Monocytes % 7.7 %; Neutrophils # 6.6 K/mcL (1.6-8.9); Platelet Count 141 K/mcL (140-400); Red Blood Count 2.37 M/mcL (4.19-5.50); Red Cell Distribution Width 17.8 % (11.5-14.5); Segmented Neutrophils % 79.8 %
[2017-07-17 01:57] LABS: INR 1.7; Prothrombin Time 18.8 Seconds (9.4-12.1)
[2017-07-17 02:13] LABS: Phosphorous 2.8 mg/dL (2.7-4.5)
[2017-07-17 02:15] LABS: BUN/Creatinine Ratio 60 (6-26); Blood Urea Nitrogen 18 mg/dL (6-20); Calcium 8.1 mg/dL (8.6-10.3); Carbon Dioxide 28 mEq/L (23-29); Chloride 106 mEq/L (98-107); Glucose 124 mg/dL (70-105); Osmolality,Calculated 287 (280-300); Potassium 3.9 mEq/L (3.5-5.1); Sodium 137 mEq/L (136-145); eGFR For African Americans > 60 (> 60); eGFR For Non-African Americans > 60 (> 60)
[2017-07-17] MEDS: Ipratropium/Albuterol Neb 3 ML IH SCH ×4 (04:12→21:57)
[2017-07-17] MEDS: MetroNIDAZOLE 500 MG/100 ML 500 MG/100 ML BAG IVPB SCH ×2 (08:05→15:11)
[2017-07-17] MEDS: Lactulose Oral Soln 20 GM/30 ML UDC PO SCH ×3 (08:10→20:33)
[2017-07-17] MEDS: Nicotine 21 MG PATCH.TD24 TD SCH (08:10)
[2017-07-17] MEDS: Furosemide 20 MG TABLET PO SCH (08:11)
[2017-07-17] MEDS: clonazePAM 1 MG TABLET PO SCH ×3 (08:11→20:33)
[2017-07-17] MEDS: Multivit/Ca/Min/Fe/FA 1 TAB TABLET PO SCH (08:11)
[2017-07-17] MEDS: Folic Acid 1 MG TABLET PO SCH (08:11)
[2017-07-17] MEDS: Thiamine (B-1) 100 MG TABLET PO SCH (08:11)
[2017-07-17] MEDS: methylPREDNISolone 4 MG TABLET PO SCH (08:59)
--- NOTE | 2017-07-17 09:52 | Discharge Summary ---
<Michael Bland - Last Filed: 07/17/17 13:42> Orders not resulted at time of discharge: Pending orders 07/11/17 12:47 Culture,Body Fluid [] Routine 07/12/17 16:26 Sputum Culture [Culture,Sputum with Gram Stain] [] Routine Date of Encounter: 07/17/17 Time of Encounter: 09:50 - Discharge Diagnosis (1) Alcoholic hepatitis Priority: Primary Status: Resolved Qualifiers: Ascites presence: with ascites Qualified Code(s): K70.11 - Alcoholic hepatitis with ascites (2) Acute respiratory failure Priority: Secondary Status: Resolved Qualifiers: Respiratory failure complication: hypoxia Qualified Code(s): J96.01 - Acute respiratory failure with hypoxia (3) Pneumonia Priority: Secondary Status: Resolved Qualifiers: Pneumonia type: aspiration pneumonia Aspiration pneumonia type: due to gastric secretions Laterality: left Lung location: upper lobe of lung Qualified Code(s): J69.0 - Pneumonitis due to inhalation of food and vomit (4) Anemia Priority: Secondary Status: Resolved Qualifiers: Anemia type: other cause Other causes of anemia: acute posthemorrhagic Qualified Code(s): D62 - Acute posthemorrhagic anemia (5) Alcohol abuse Priority: Secondary Status: Chronic (6) Malnutrition Priority: Secondary Status: Chronic Qualifiers: Malnutrition type: protein-calorie malnutrition Protein-calorie malnutrition severity: severe Qualified Code(s): E43 - Unspecified severe protein-calorie malnutrition (7) Ascites Priority: Secondary Status: Chronic Qualifiers: Ascites type: due to alcoholic cirrhosis Qualified Code(s): K70.31 - Alcoholic cirrhosis of liver with ascites (8) Hypokalemia Priority: Secondary Status: Resolved (9) Hepatic encephalopathy Priority: Secondary Status: Resolved (10) Coagulopathy Priority: Secondary Status: Chronic Hospital course: Mr. Hernández is a 52 year old male with history of alcohol abuse, depression, tobacco abuse presented with chief complaint of weakness and jaundice. Patient was confused upon admission. CT abdomen showed significant distention of the gallbladder with gallbladder sludge and possible common bile duct obstruction, large ascites which was confirmed by ultrasound. Patient was started on aspirin prophylaxis with ceftriaxone. Patient's bilirubin was total 8.6, direct bilirubin 4.8 and indirect 3.8. WBC was 16.4, hemoglobin 10.2, INR 2.3, potassium 3.3 sodium 130 and creatinine 0.67. Patient was hypotensive on admission and thrombocytopenic started on IV fluids. GI was consulted and diagnosed patient with alcohol Hepatitis. His meld score was 26 . Maddrays discriminant function was 73.5. Patient was started on IV steroids as his bilirubin continued to increase. He was given albumin due to hypoalbuminemia. He was started on lactulose due to hepatic encephalopathy. He wason CIWA protocol due to history of alcohol abuse and started on IV vitamins and thiamine. Patient's hemoglobin decreased from 10.6-6.3 within 72 hours of admission and he was given a total of 2 units packed red blood cells during this admission. He was also given 2 units of FFP's due to coagulopathy secondary to cirrhosis. Patient had a central line placed on 07/10/17 secondary to poor IV access. Initially patient refused paracentesis which was thought to cause acute respiratory distress and he started requiring oxygenation up to 7 L via nasal cannula. Chest x-ray was ordered which showed a developing left upper lobe pneumonia (aspiration vs CAP) and patient was continued on ceftriaxone and started on Flagyl. Patient agreed to paracentesis on 2017 and [id number] was drained, ascitic fluid cultures were negative and cell count ruled out SBP. Patient's peripheral venipuncture blood cultures were negative as well. Patient improved on IV steroids, antibiotics, electrolyte protocol. Patient's hepatic encephalopathy improved with lactulose. He underwent swallow evaluation by speech therapy and was put on a specialized diet. His hemoglobin remained stable. GI reported patient was too high risk to undergo EGD and this was held. Patient's hemoglobin has remained stable around 7-8 g/dL. He is alert and oriented 3 today. Patient is tolerating his diet. He currently requires 3l oxygen supplementation. PT/OT evaluated patient and recommended inpatient rehabilitation. Patient has received a total of 8 days of ceftriaxone and 5 days of Flagyl for pneumonia. He has completed antibiotic course for pneumonia. Patient will be sent home on SBP prophylaxis indefinitely with Ciprofloxacillin 750MG every qweek. GI recommended patient to be sent home on 100 milligrams of Aldactone and 40 mg of Lasix daily. Patient will be on 32 mg of methylprednisolone for 2 weeks then 16mg for 2 weeks and then 8 mg for one week. Follow up with GI. Patient was given resources for residential treatment for alcohol abuse. - Time Spent with Patient Total time spent providing and/or coordinating discharge services: - Discharge Medications Prescriptions: Ciprofloxacin [Cipro] 750 mg PO QWEEK #6 tablet clonazePAM [Klonopin] 1 mg PO TID PRN 7 Days #15 tablet PRN Reason: Anxiety Furosemide Oral Soln [Lasix] 40 mg PO DAILY #30 mls Home Medications: Acetaminophen [Tylenol] 650 mg PO Q6HR PRN tablet 07/17/17 [Rx] Ciprofloxacin [Cipro] 750 mg PO QWEEK #6 tablet 07/17/17 [Rx] Folic Acid 1 mg PO DAILY tablet 07/17/17 [Rx] Furosemide Oral Soln [Lasix] 40 mg PO DAILY #30 mls 07/17/17 [Rx] Ipratropium/Albuterol Neb [Duoneb] 3 ml IH [id number] inhsol 07/17/17 [Rx] Lactulose 20 gm PO TID udc 07/17/17 [Rx] Multivit/Ca/Min/Fe/FA [Thera M Plus] 1 tab PO DAILY tablet 07/17/17 [Rx] Nicotine Patch [Nicoderm] 21 mg TD DAILY patch.td24 07/17/17 [Rx] Omeprazole [PriLOSEC] 40 mg PO BIDAC capsule. 07/17/17 [Rx] Ondansetron [Zofran] 4 mg IVP Q8HR PRN vial 07/17/17 [Rx] Potassium Chloride 40 meq PO DAILY PRN tab.er.prt 07/17/17 [Rx] Spironolactone [Aldactone] 100 mg PO DAILY #0 tablet 07/17/17 [Rx] Thiamine (B-1) [Vitamin B-1] 100 mg PO DAILY tablet 07/17/17 [Rx] clonazePAM [Klonopin] 1 mg PO TID PRN 7 Days #15 tablet 07/17/17 [Rx] methylPREDNISolone [Medrol] 32 mg PO DAILY tablet 07/17/17 [Rx] Allergies/Adverse Reactions: 3 Allergy/AdvReac Type Severity Reaction Status Date / Time No Known Allergies Allergy Verified 07/09/17 03:13 Date of admission: 07/09/17 03:00 Primary care physician: Lawrence Christianson Consults: 07/10/17 09:25 Consult to Speech Therapy [CONS] Routine Comment: Evaluate, develop and implement POC Reason for Consult: swallow eval. Please do after EGD as patient in npo. Call Completed: No 07/10/17 11:33 Consult to Interventional Radiology [CONS] Routine Consulting Provider: Radiology Interventional Cols Reason for Consult: ascites, paracentesis Call Completed: No 07/11/17 12:46 Consult to Nutrition [CONS] Routine Comment: Consulting Provider: NUTRITION Reason for Dietary Consult: TPN Start and Manage 07/15/17 09:47 Consult to Occupational Therapy [CONS] Routine Comment: Evaluate, develop and implement POC Reason for Consult: Generalized weakness, rehab placement Does patient have active BEDREST order?: No Is patient medically & hemodynamically stable?: Yes Patient assessed for mobility or mobilized this visit?: No Consult to Physical Therapy [CONS] Routine Comment: Evaluate, develop and implement POC Reason for Consult: Generalized weakness, rehab placement Does patient have active BEDREST order?: No Is patient medically & hemodynamically stable?: Yes Patient assessed for mobility or mobilized this visit?: No Discharging clinician: Michael Bland Anticipated date of discharge: 07/17/17 - Constitutional Vitals: Temp Pulse Resp BP Pulse Ox 98.5 F 77 15 106/78 97 07/17/17 08:05 07/17/17 08:05 07/17/17 08:05 07/17/17 08:05 07/17/17 08:05 General appearance: Present: A&O X 3 - Other Additional findings: General: Pleasant without distress HEENT: moist mucous membranes. absent scleral icterus Heart: Regular rate and rhythm without murmur Lungs: Clear to auscultation bilaterally, diminished, poor effort. Abdomen: Soft nontender, mild distension positive bowel sounds Skin: warm and dry Extremities: Absent pedal edema, Neuro: alert and oriented x3 Vascular: Pedal and radial pulses 2 out of 4. - Patient Status Disposition: Transfer Inpatient Rehab Fac Condition: Fair Functional capacity at discharge: wheelchair bound Overall status at discharge: patient is progressing back to baseline - Discharge Instructions Follow Up With: Lawrence Christianson, PAC [Primary Care Provider] - (Patient going to ECF. No PCP appointment needed) Raza Palafox MD [Partnered Physician] - (SENT WEB REQUEST ON 07-09-17 @ [id number]) - Diet and Activity Activity: increase activity as tolerated Diet: other (Advance soft diet chopped meat, dietary supplements in chair 3 times a day.) <Lee Thomason - Last Filed: 07/17/17 18:13> Orders not resulted at time of discharge: Pending orders 07/12/17 16:26 Sputum Culture [Culture,Sputum with Gram Stain] [RM] Routine Date of Encounter: 07/17/17 - Discharge Diagnosis (1) Acute respiratory failure Priority: Secondary Status: Resolved Qualifiers: Respiratory failure complication: hypoxia Qualified Code(s): J96.01 - Acute respiratory failure with hypoxia (2) Alcoholic hepatitis Status: Resolved Qualifiers: Ascites presence: with ascites Qualified Code(s): K70.11 - Alcoholic hepatitis with ascites (3) Hepatic encephalopathy Status: Resolved (4) Anemia Status: Resolved Qualifiers: Anemia type: other cause Other causes of anemia: acute posthemorrhagic Qualified Code(s): D62 - Acute posthemorrhagic anemia (5) Coagulopathy Status: Chronic (6) Pneumonia Status: Resolved Qualifiers: Pneumonia type: aspiration pneumonia Aspiration pneumonia type: due to gastric secretions Laterality: left Lung location: upper lobe of lung Qualified Code(s): J69.0 - Pneumonitis due to inhalation of food and vomit (7) Alcohol abuse Status: Chronic (8) Tobacco abuse Priority: Secondary Status: Chronic (9) Hypokalemia Status: Resolved (10) Malnutrition Status: Chronic Qualifiers: Malnutrition type: protein-calorie malnutrition Protein-calorie malnutrition severity: severe Qualified Code(s): E43 - Unspecified severe protein-calorie malnutrition Hospital course: Mr. Hernández is a 52 year old male - Time Spent with Patient Total time spent providing and/or coordinating discharge services: 39min Date of admission: 07/09/17 03:00 Primary care physician: Lawrence Christianson Consults: 07/10/17 09:25 Consult to Speech Therapy [CONS] Routine Comment: Evaluate, develop and implement POC Reason for Consult: swallow eval. Please do after EGD as patient in npo. Call Completed: No 07/10/17 11:33 Consult to Interventional Radiology [CONS] Routine Consulting Provider: Radiology Interventional Cols Reason for Consult: ascites, paracentesis Call Completed: No 07/11/17 12:46 Consult to Nutrition [CONS] Routine Comment: Consulting Provider: NUTRITION Reason for Dietary Consult: TPN Start and Manage 07/15/17 09:47 Consult to Occupational Therapy [CONS] Routine Comment: Evaluate, develop and implement POC Reason for Consult: Generalized weakness, rehab placement Does patient have active BEDREST order?: No Is patient medically & hemodynamically stable?: Yes Patient assessed for mobility or mobilized this visit?: No Consult to Physical Therapy [CONS] Routine Comment: Evaluate, develop and implement POC Reason for Consult: Generalized weakness, rehab placement Does patient have active BEDREST order?: No Is patient medically & hemodynamically stable?: Yes Patient assessed for mobility or mobilized this visit?: No - Constitutional Vitals: Temp Pulse Resp BP Pulse Ox 98.3 F 75 16 101/75 97 07/17/17 16:17 07/17/17 16:17 07/17/17 16:33 07/17/17 16:17 07/17/17 16:33 - Attending Attestation I examined this patient and my medical decision-making was reviewed with the Resident Physician on 07/17/17. I agree with the documented findings, disposition and treatment plan as described except to the extent set forth below. Mr Hernández has been admitted for acute alcoholic hepatitis. He is afebrile at this time. He has been evaluated and is to go to SNF for rehab. He is to have follow up with GI and take steroid taper. Exam Alert Comfortable Mucus membranes dry Heart distant Lungs clear Abd soft - ascites present but nontender and not tight Plan D/C to SNF when arranged.
--- NOTE | 2017-07-17 10:11 | Gastroenterology Progress Note ---
Date of Encounter: 07/17/17 Time of Encounter: 10:09 - Assessment and plan (1) Alcoholic hepatitis Current Visit: Yes Status: Resolved Assessment and plan: MELD Score currently down to 19 from 26 on admission Maddrey's Discriminant Function 73.5 on admission -Bilirubin with sustained downward trend -ascites fluid culture negative for infection -will change oral steroids from prednisolone to methylprednisolone. Recommend 32 mg PO for 2 weeks, then 16 mg PO for 2 weeks, then 8mg PO for 1 week. -Recommend discharge home with multivitamins and thiamine. -DC home with 40 mg lasix daily, 100 mg aldactone, potassium supplementation, and cipro. -No EGD during hospitalization, patient will need to FU in the clinic with Dr. Palafox as an outpatient approximately 2 weeks after discharge. Qualifiers: Ascites presence: with ascites Qualified Code(s): K70.11 - Alcoholic hepatitis with ascites (2) Anemia Current Visit: Yes Status: Resolved Assessment and plan: Hgb stable (S/p RBC transfusion). -Transfusion per primary team- Recommend hgb around 7-7.5 so as not to increase portal pressures too high. -PPI -continue rocephin and steroids Qualifiers: Anemia type: other cause Other causes of anemia: acute posthemorrhagic Qualified Code(s): D62 - Acute posthemorrhagic anemia (3) Malnutrition Current Visit: Yes Status: Chronic Assessment and plan: Albumin and total protein low. -patient's albumin supplemented. Qualifiers: Malnutrition type: protein-calorie malnutrition Protein-calorie malnutrition severity: severe Qualified Code(s): E43 - Unspecified severe protein-calorie malnutrition (4) Hepatic encephalopathy Current Visit: Yes Status: Resolved Assessment and plan: Agree with lactulose. -Continues to demonstrate improvement. (5) Coagulopathy Current Visit: Yes Status: Chronic Assessment and plan: Patient has been given 3 doses of vitamin K during this hopsitalization and 2 units of FFP. (6) Ascites Current Visit: Yes Status: Chronic Assessment and plan: 2.5 liters drained from abdomen 4 days ago. -fluid analysis negative -Will coordinate biweekly paracentesis with our office/IR. Qualifiers: Ascites type: due to alcoholic cirrhosis Qualified Code(s): K70.31 - Alcoholic cirrhosis of liver with ascites (7) Alcohol abuse Current Visit: Yes Status: Chronic Assessment and plan: Patient with chronic history of alcoholism. -Continue vitamin/electrolyte repletion per primary team. -patient needs discharge home with resources for residential treatment. Resources provided. - Time Spent With Patient Total time spent is greater than 50% in coordination of care (as documented) at patient's floor/unit and/or counseling patient: - Subjective Interval history: Alert and oriented x3. Continues to require supplemental O2 2L. He denies any complaints. States he wants to quit drinking. NO abdominal pain, nausea or vomitting. Shortness of breath improving. - Constitutional Vitals: Temp Pulse Resp BP Pulse Ox 98.5 F 77 15 106/78 97 07/17/17 08:05 07/17/17 08:05 07/17/17 08:05 07/17/17 08:05 07/17/17 08:05 General appearance: Present: cachectic, cooperative, A&O X 3, thin - Head Head exam: Present: atraumatic - Eye Eye exam: Present: sclera anicteric - Respiratory Respiratory exam: Present: CTAB. Absent: rales, respiratory distress, rhonchi, wheezes - Cardiovascular Cardiovascular exam: Present: RRR, +S1, +S2 - GI/Abdominal GI/Abdominal exam: Present: normal bowel sounds, soft, no peritoneal signs. Absent: firm, rigid, tenderness - Expanded GI/Abdominal Exam GI/Abdominal exam expanded: Present: ascites - Extremities Exam Extremities exam: Present: pedal edema - Neurological Exam Neurological exam: Present: alert, oriented X3 - Skin Skin exam: Present: dry, intact, pallor, warm Results - Labs CBC & Chem 7: 07/17/17 00:42 07/17/17 00:42 Labs: Last Result Calcium 8.1 mg/dL (8.6-10.3) L 07/17/17 00:42 Troponin I < 0.03 ng/mL (< 0.04) 07/08/17 20:38 Triglycerides 64 mg/dL (< 150) 07/09/17 03:18 Entire Visit Hgb 8.4 g/dL (12.9-16.9) L 07/17/17 00:42 Hct 25.7 % (37.5-50.1) L 07/17/17 00:42 Haptoglobin 14 mg/dL (30-200) L 07/10/17 09:51 PT 18.8 Seconds (9.4-12.1) H 07/17/17 00:42 Total Bilirubin 3.7 mg/dL (0.3-1.0) H 07/15/17 04:03 AST 51 Units/L (13-39) H 07/15/17 04:03 ALT 18 Units/L (7-52) 07/15/17 04:03 Ammonia 43 mcmol/L (16-53) 07/14/17 12:15 Lipase 10 Units/L (11-82) L 07/08/17 20:38 - ABG ABG results: PT/INR, D-dimer PT 18.8 Seconds (9.4-12.1) H 07/17/17 00:42 Consult Discharge Plan - Plan Referrals: Lawrence Christianson, PAC [Primary Care Provider] - 07/24/17 11:20 am Raza Palafox MD [Partnered Physician] - (SENT WEB REQUEST ON 07-09-17 @ [id number]) Prescriptions: clonazePAM [Klonopin] 1 mg PO TID PRN 7 Days #15 tablet PRN Reason: Anxiety
--- NOTE | 2017-07-17 10:27 | Physician Discharge Referral ---
ExtendedCare Referral Info Transfer To: [facility] Provider in Charge: Dr. Thomason Provider in Charge after Transfer: PCP Institutional Level of Care: Skilled - Diagnosis (1) Alcoholic hepatitis Priority: Primary Status: Resolved (2) Acute respiratory failure Priority: Secondary Status: Resolved (3) Pneumonia Priority: Secondary Status: Resolved (4) Anemia Priority: Secondary Status: Resolved (5) Alcohol abuse Priority: Secondary Status: Chronic (6) Malnutrition Priority: Secondary Status: Chronic (7) Ascites Priority: Secondary Status: Chronic (8) Hypokalemia Priority: Secondary Status: Resolved (9) Hepatic encephalopathy Priority: Secondary Status: Resolved (10) Coagulopathy Priority: Secondary Status: Chronic Prognosis: Fair Aware of Diagnosis: Patient, Family Aware of Prognosis: Patient, Family - Transfer Medications Prescriptions: Ciprofloxacin [Cipro] 750 mg PO QWEEK #6 tablet clonazePAM [Klonopin] 1 mg PO TID PRN 7 Days #15 tablet PRN Reason: Anxiety Furosemide Oral Soln [Lasix] 40 mg PO DAILY #30 mls Home Medications: Acetaminophen [Tylenol] 650 mg PO Q6HR PRN tablet 07/17/17 [Rx] Ciprofloxacin [Cipro] 750 mg PO QWEEK #6 tablet 07/17/17 [Rx] Folic Acid 1 mg PO DAILY tablet 07/17/17 [Rx] Furosemide Oral Soln [Lasix] 40 mg PO DAILY #30 mls 07/17/17 [Rx] Ipratropium/Albuterol Neb [Duoneb] 3 ml IH [id number] inhsol 07/17/17 [Rx] Lactulose 20 gm PO TID udc 07/17/17 [Rx] Multivit/Ca/Min/Fe/FA [Thera M Plus] 1 tab PO DAILY tablet 07/17/17 [Rx] Nicotine Patch [Nicoderm] 21 mg TD DAILY patch.td24 07/17/17 [Rx] Omeprazole [PriLOSEC] 40 mg PO BIDAC capsule. 07/17/17 [Rx] Ondansetron [Zofran] 4 mg IVP Q8HR PRN vial 07/17/17 [Rx] Potassium Chloride 40 meq PO DAILY PRN tab.er.prt 07/17/17 [Rx] Spironolactone [Aldactone] 100 mg PO DAILY #0 tablet 07/17/17 [Rx] Thiamine (B-1) [Vitamin B-1] 100 mg PO DAILY tablet 07/17/17 [Rx] clonazePAM [Klonopin] 1 mg PO TID PRN 7 Days #15 tablet 07/17/17 [Rx] methylPREDNISolone [Medrol] 32 mg PO DAILY tablet 07/17/17 [Rx] Allergies/Adverse Reactions: 3 Allergy/AdvReac Type Severity Reaction Status Date / Time No Known Allergies Allergy Verified 07/09/17 03:13 - Respiratory Orders Oxygen / L per min (3L) Smoking Cessation: Smoking cessation has been advised. For more information, call the [place] Tobacco Quit Line at 5-469-MCOD-NOW. - Lab Orders Lab Orders: Other (include drug levels w/frequency) (BMP Qweek) - Advance Directives Power of Plaster Machine Operator: Yes (Son) Code Status: Full Code - Mobility Orders Chair - Rehabiliation Orders Rehab Potential: Good Rehab Orders: Evaluation for Physical Therapy, Evaluation for Occupational Therapy - Treatments Skin tear care topically daily PRN per policy - Diet Orders Regular (Advanced soft diet chopped meat) House Supplement per Dietary: Ensure 3 times a day CERTIFICATION: I certify that the transfer of the above named patient to an Extended Care Facility is necessary for the continuing treatment of the diagnosis listed. The above information is true and accurate reflection of patient's current condition. Confidential - Redisclosure prohibited without a patient's written consent.
[2017-07-18] MEDS: Ipratropium/Albuterol Neb 3 ML IH SCH ×2 (04:19→10:38)
[2017-07-18] MEDS: Furosemide 20 MG TABLET PO SCH (08:44)
[2017-07-18] MEDS: Folic Acid 1 MG TABLET PO SCH (08:44)
[2017-07-18] MEDS: Multivit/Ca/Min/Fe/FA 1 TAB TABLET PO SCH (08:44)
[2017-07-18] MEDS: clonazePAM 1 MG TABLET PO SCH ×2 (08:44→14:53)
[2017-07-18] MEDS: Thiamine (B-1) 100 MG TABLET PO SCH (08:45)
[2017-07-18] MEDS: Lactulose Oral Soln 20 GM/30 ML UDC PO SCH ×2 (08:45→14:53)
[2017-07-18] MEDS: Nicotine 21 MG PATCH.TD24 TD SCH (08:45)
[2017-07-18] MEDS: methylPREDNISolone 4 MG TABLET PO SCH (10:34)
[2017-07-18 11:12] VITALS: BP 102/66
--- NOTE | 2017-07-18 15:26 | Physician Discharge Referral ---
Home Health/Hosp Referral Info Transfer to: Home Health Attending Provider: Dr. Thomason Provider in Charge Post Discharge: PCP - Diagnosis (1) Alcoholic hepatitis Priority: Primary Status: Resolved (2) Acute respiratory failure Priority: Secondary Status: Resolved (3) Pneumonia Priority: Secondary Status: Resolved (4) Anemia Priority: Secondary Status: Resolved (5) Alcohol abuse Priority: Secondary Status: Chronic (6) Malnutrition Priority: Secondary Status: Chronic (7) Ascites Priority: Secondary Status: Chronic (8) Hypokalemia Priority: Secondary Status: Resolved (9) Hepatic encephalopathy Priority: Secondary Status: Resolved (10) Coagulopathy Priority: Secondary Status: Chronic - Respiratory Orders Smoking Cessation: Smoking cessation has been advised. For more information, call the [place] Tobacco Quit Line at 9-807-CCMW-NOW. - Diet/Nutrition Diet/Nutrition Orders: Regular Diet/Nutrition: List: Advanced soft diet chopped meat ensure TID - Activity Activity Orders: Ambulate (with medical assistant secretary), Walker - Services Needed Following services are medically necessary services: Nursing, Home Health Aide, Physical Therapy, Occupational Therapy - Transfer Medications Prescriptions: Ciprofloxacin [Cipro] 750 mg PO QWEEK #6 tablet clonazePAM [Klonopin] 1 mg PO TID PRN 7 Days #15 tablet PRN Reason: Anxiety Commode - Three In One [THREE IN ONE COMMODE] 1 each .ROUTE PRN #1 each Folic Acid 1 mg PO DAILY #30 tablet Furosemide [Lasix] 40 mg PO DAILY #30 tablet Lactulose 20 gm PO TID #90 mls MethylPREDNISolone [Medrol] 32 mg PO DAILY #12 tablet Multivit/Ca/Min/Fe/FA [Thera M Plus] 1 each PO DAILY #30 tablet Nicotine Patch [Nicoderm] 21 mg TD DAILY #7 patch.td24 Omeprazole [PriLOSEC] 40 mg PO BID #60 cap OXYCODONE Oral CONC [Oxycodone Oral Conc] 5 mg SL Q4H PRN 7 Days #10 oral.syg PRN Reason: Pain Potassium Chloride [Klor-Con Sprinkle] 10 meq PO DAILY #30 capsule.er Spironolactone [Aldactone] 100 mg PO DAILY #30 tablet Thiamine (B-1) [Vitamin B-1] 100 mg PO DAILY #100 tablet Walker [Ultra-Light Rollator] 1 each MC DAILY #1 each Home Medications: Acetaminophen [Tylenol] 650 mg PO Q6HR PRN tablet 07/17/17 [Rx] Ciprofloxacin [Cipro] 750 mg PO QWEEK #6 tablet 07/17/17 [Rx] Ipratropium/Albuterol Neb [Duoneb] 3 ml IH [id number] inhsol 07/17/17 [Rx] Ondansetron [Zofran] 4 mg IVP Q8HR PRN vial 07/17/17 [Rx] clonazePAM [Klonopin] 1 mg PO TID PRN 7 Days #15 tablet 07/17/17 [Rx] Commode - Three In One [THREE IN ONE COMMODE] 1 each .ROUTE PRN #1 each [Rx] Folic Acid 1 mg PO DAILY #30 tablet 07/18/17 [Rx] Furosemide [Lasix] 40 mg PO DAILY #30 tablet 07/18/17 [Rx] Lactulose 20 gm PO TID #90 mls 07/18/17 [Rx] MethylPREDNISolone [Medrol] 32 mg PO DAILY #12 tablet 07/18/17 [Rx] Multivit/Ca/Min/Fe/FA [Thera M Plus] 1 each PO DAILY #30 tablet 07/18/17 [Rx] Nicotine Patch [Nicoderm] 21 mg TD DAILY #7 patch.td24 07/18/17 [Rx] OXYCODONE Oral CONC [Oxycodone Oral Conc] 5 mg SL Q4H PRN 7 Days #10 oral.syg [Rx] Omeprazole [PriLOSEC] 40 mg PO BID #60 cap 07/18/17 [Rx] Potassium Chloride [Klor-Con Sprinkle] 10 meq PO DAILY #30 capsule.er 07/18/17 [ Rx] Spironolactone [Aldactone] 100 mg PO DAILY #30 tablet 07/18/17 [Rx] Thiamine (B-1) [Vitamin B-1] 100 mg PO DAILY #100 tablet 07/18/17 [Rx] Walker [Ultra-Light Rollator] 1 each MC DAILY #1 each 07/18/17 [Rx] Allergies/Adverse Reactions: 3 Allergy/AdvReac Type Severity Reaction Status Date / Time No Known Allergies Allergy Verified 07/09/17 03:13 Certification: Further, I certify that my clinical findings support that this patient is homebound (i.e. absences from home require considerable and taxing effort and are for medical reasons or [facility] services or infrequently or short duration when for other reasons) because: Homebound Reason: Patient requires assistance of a person or device to safely leave home, Absences from home are contraindicated except to recieve medical care Attestation: My signature below is to certify that this patient is under my care and that I, or nurse practitioner, or a physician's medical assistant secretary working with me, has a face-to -face encounter with this patient.
--- NOTE | 2017-07-18 15:46 | Internal Med Progress Note ---
<Michael Bland - Last Filed: 07/18/17 15:42> Date of Encounter: 07/18/17 Time of Encounter: 15:42 - Assessment and plan (1) Alcoholic hepatitis Status: Resolved Assessment and plan: T-yajaira trending down. Resolving. continue methylprednisone 32 mg daily Follow-up with GI. Will need repeated paracentesis outpatient which can be set up by GI. Qualifiers: Ascites presence: with ascites Qualified Code(s): K70.11 - Alcoholic hepatitis with ascites (2) Acute respiratory failure Status: Resolved Assessment and plan: Resolved. Weaned off oxygen. Qualifiers: Respiratory failure complication: hypoxia Qualified Code(s): J96.01 - Acute respiratory failure with hypoxia (3) Pneumonia Status: Resolved Assessment and plan: Resolved. Completed antibiotic therapy. Qualifiers: Pneumonia type: aspiration pneumonia Aspiration pneumonia type: due to gastric secretions Laterality: left Lung location: upper lobe of lung Qualified Code(s): J69.0 - Pneumonitis due to inhalation of food and vomit (4) Anemia Status: Resolved Assessment and plan: Stable. Qualifiers: Anemia type: other cause Other causes of anemia: acute posthemorrhagic Qualified Code(s): D62 - Acute posthemorrhagic anemia (5) Alcohol abuse Status: Chronic Assessment and plan: patient offered resources for help with alcoholism. (6) Malnutrition Status: Chronic Assessment and plan: continue pureed diet. ensure TID Qualifiers: Malnutrition type: protein-calorie malnutrition Protein-calorie malnutrition severity: severe Qualified Code(s): E43 - Unspecified severe protein-calorie malnutrition (7) Ascites Status: Chronic Assessment and plan: 2nd to alcoholic cirrhosis patient abdomen more distended today may need repeat paracentesis outpatient. Patient started on SBP prophylaxis. Qualifiers: Ascites type: due to alcoholic cirrhosis Qualified Code(s): K70.31 - Alcoholic cirrhosis of liver with ascites (8) Hypokalemia Status: Resolved Assessment and plan: Follow-up outpatient with repeat BMP. (9) Hepatic encephalopathy Status: Resolved Assessment and plan: Resolved. (10) Coagulopathy Status: Chronic - Subjective Interval history: Alert and oriented x3. He is weaned off O2. He denies any complaints. Physical therapy occupational therapy recommended patient will be discharged to SNF for strengthening. Patient's refused and would like to go home. Patient lives in a two-story building with bedroom and shower upstairs. He does not have 24/7 care, which he will need. Patient explained high risk for falls at home. Patient still insisted on going home. He will be discharged with home health, physical therapy, occupational therapy, nurses aide. Patient is prescribed a bedside commode and walker. Patient will need to follow-up with PCP and GI. Patient given lab orders for BMP and hepatic panel in 1 week. Patient is also given resources for alcohol treatment. He reports he is done with alcohol. - Constitutional Vitals: Temp Pulse Resp BP Pulse Ox 98.8 F 84 16 102/66 93 07/18/17 12:00 07/18/17 12:00 07/18/17 12:00 07/18/17 12:00 07/18/17 12:00 General appearance: Present: A&O X 3 - Other Additional findings: General: Pleasant without distress HEENT: Head atraumatic, normocephalic, EOMI, PERRL, neck nontender to palpation , absent lymphadenopathy, Moist Mucous Membranes, anicteric Heart: Regular rate and rhythm with no murmur Lungs: Clear to auscultation bilaterally Abdomen: Soft nontender, nondistended positive bowel sounds Skin: warm and dry, absent jaundice Extremities: Absent pedal edema, Neuro: Cranial nerves II through XII intact, UE and LE sensation equal bilaterally, UE and LEstrength 4/5, alert oriented 3, Vascular: Pedal and radial pulses 2 out of 4 Internal Medicine: Result - Labs CBC & Chem 7: 07/17/17 00:42 07/17/17 00:42 - ABG Interpretation ABG results: PT/INR, D-dimer PT 18.8 Seconds (9.4-12.1) H 07/17/17 00:42 Consult Discharge Plan - Plan Instructions: Ciprofloxacin (By mouth), Spironolactone (By mouth), Furosemide ( By mouth), Clonazepam (By mouth), Potassium Chloride (By mouth), Omeprazole (By mouth), Folic Acid (By mouth), Nicotine (Absorbed through the skin), Lactulose ( By mouth), Oxycodone, Rapid Release (By mouth), Methylprednisolone (By mouth) Referrals: Lawrence Christianson, PAC [Primary Care Provider] - (Office will call you for follow up appointment) Raza Palafox MD [Partnered Physician] - (SENT WEB REQUEST ON 07-09-17 @ [phone]) Prescriptions: Ciprofloxacin [Cipro] 750 mg PO QWEEK #6 tablet clonazePAM [Klonopin] 1 mg PO TID PRN 7 Days #15 tablet PRN Reason: Anxiety Commode - Three In One [THREE IN ONE COMMODE] 1 each .ROUTE PRN #1 each Folic Acid 1 mg PO DAILY #30 tablet Furosemide [Lasix] 40 mg PO DAILY #30 tablet Lactulose 20 gm PO TID #90 mls MethylPREDNISolone [Medrol] 32 mg PO DAILY #12 tablet Multivit/Ca/Min/Fe/FA [Thera M Plus] 1 each PO DAILY #30 tablet Nicotine Patch [Nicoderm] 21 mg TD DAILY #7 patch.td24 Omeprazole [PriLOSEC] 40 mg PO BID #60 cap OXYCODONE Oral CONC [Oxycodone Oral Conc] 5 mg SL Q4H PRN 7 Days #10 oral.syg PRN Reason: Pain Potassium Chloride [Klor-Con Sprinkle] 10 meq PO DAILY #30 capsule.er Spironolactone [Aldactone] 100 mg PO DAILY #30 tablet Thiamine (B-1) [Vitamin B-1] 100 mg PO DAILY #100 tablet Walker [Ultra-Light Rollator] 1 each MC DAILY #1 each <Lee Thomason - Last Filed: 07/18/17 16:49> Date of Encounter: 07/18/17 - Assessment and plan (1) Acute respiratory failure Status: Resolved Qualifiers: Respiratory failure complication: hypoxia Qualified Code(s): J96.01 - Acute respiratory failure with hypoxia (2) Alcoholic hepatitis Status: Resolved Qualifiers: Ascites presence: with ascites Qualified Code(s): K70.11 - Alcoholic hepatitis with ascites (3) Hepatic encephalopathy Status: Resolved (4) Anemia Status: Resolved Qualifiers: Anemia type: other cause Other causes of anemia: acute posthemorrhagic Qualified Code(s): D62 - Acute posthemorrhagic anemia (5) Coagulopathy Status: Chronic (6) Pneumonia Status: Resolved Qualifiers: Pneumonia type: aspiration pneumonia Aspiration pneumonia type: due to gastric secretions Laterality: left Lung location: upper lobe of lung Qualified Code(s): J69.0 - Pneumonitis due to inhalation of food and vomit (7) Alcohol abuse Status: Chronic (8) Tobacco abuse Status: Chronic (9) Hypokalemia Status: Resolved (10) Malnutrition Status: Chronic Qualifiers: Malnutrition type: protein-calorie malnutrition Protein-calorie malnutrition severity: severe Qualified Code(s): E43 - Unspecified severe protein-calorie malnutrition - Constitutional Vitals: Temp Pulse Resp BP Pulse Ox 98.8 F 84 16 102/66 93 07/18/17 12:00 07/18/17 12:00 07/18/17 12:00 07/18/17 12:00 07/18/17 12:00 Internal Medicine: Result - Labs CBC & Chem 7: 07/17/17 00:42 07/17/17 00:42 - ABG Interpretation ABG results: PT/INR, D-dimer PT 18.8 Seconds (9.4-12.1) H 07/17/17 00:42 - Attending Attestation I examined this patient and my medical decision-making was reviewed with the Resident Physician on 07/18/17. I agree with the documented findings, disposition and treatment plan as described except to the extent set forth below. Mr Hernández is currently admitted with acute alcoholic hepatitis. He remains moderate to high risk due to potential for worsening clinical status. Mr Hernández feels OK. He is now refusing to go to SNF. He wants to go home despite concerns everyone has regarding his strength. He could not get completely up stairs today. He is adamant he is going home. Exam Alert Comfortable Mucus membranes dry Heart reg and distant Lungs diminished Abd soft - not taut. I/P 1. Alcoholic hepatitis Plan for d/c today - [facility]
== END 2017-07-18 16:00 | DRG 280 ==
LOC: EMEROO 19:33 → 2NNU 19:33 → SUATTDRO 07-09 03:00
PROVIDERS: ADMIT Internal Medicine Cardiovascular Disease; ATTEND Internal Medicine